=== PATIENT | female | born 1955 | race Caucasian/White ===

== ENCOUNTER 2024-03-16 08:43 | Inpatient (IN) | payer MEDICARE ==
[2024-03-16] MEDS: MIDAZOLAM 1 MG/ML 5 ML VIAL IV STA (08:47)
[2024-03-16] MEDS: SODIUM CHLORIDE 0.9% 500 ML 500 ML IV STA (08:48)
[2024-03-16] MEDS: SUCCINYLCHOLINE CHLORIDE 200 MG/10 ML VIAL IV STA (08:48)
[2024-03-16] MEDS ORDERED: RX INFO: IV CONTRAST WAS GIVEN 1 EACH MISC MISCELLANE PRN (09:07)
--- NOTE | 2024-03-16 09:12 | XR ---
EXAMINATION TYPE: XR chest 1V DATE OF EXAM: 03/16/2024 COMPARISON: NONE HISTORY: Shortness of breath FINDINGS: Noted is pulmonary venous congestion with scattered infiltrates. There is also cardiomegaly . Endotracheal tube is 3.5 cm from the dejon. IMPRESSION: Findings felt to reflect congestive failure. Infiltrates of other etiology are not excluded. Clini polo correlation and progress studies are recommended. [facility], , 03/16/2024 9:10 AM
--- NOTE | 2024-03-16 09:17 | ED ---
General Adult HPI - General Chief complaint: Cardiac Arrest/CPR Stated complaint: unresponsive Time Seen by Provider: 03/16/24 08:43 Source: patient, EMS, RN notes reviewed, old records reviewed Mode of arrival: EMS Limitations: physical limitation - History of Present Illness Initial comments: This is a 68-year-old female who presents to the emergency department via EMS. Patient's daughter heard a bang in the room she walked into the room and the pa tient was unresponsive and had no pulse and was not breathing so she started CPR and called 911. When EMS arrived the patient was in V-fib the patient was shocked 1 time and CPR was continued she was in PEA at that time they did give 1 epi intubated the patient and then the patient's pulse returned. Patient continued to have a pulse and route and had fairly normal blood pressure and route and was oxygenating 100% ET tube got removed accidentally and they put the patient on nonrebreather and she remained at 100% and route. No other data is available this time patient has never been to this hospital before patient arrives unresponsive - Related Data Home Medications Medication Instructions Recorded Confirmed Apixaban [Eliquis] 5 mg PO BID 03/16/24 03/16/24 Sotalol [Betapace] 80 mg PO BID 03/16/24 03/16/24 lisinopriL [Zestril] 5 mg PO DAILY 03/16/24 03/16/24 Allergies Allergy/AdvReac Type Severity Reaction Status Date / Time No Known Allergies Allergy Unverified 03/16/24 09:39 Review of Systems ROS Statement: Those systems with pertinent positive or pertinent negative responses have been documented in the HPI. ROS Other: All systems not noted in ROS Statement are negative. General Exam - General Exam Comments Initial Comments: GENERAL: Patient is well-developed and well-nourished. ENT: Neck is soft and supple. No significant lymphadenopathy is noted. Oropharynx is clear. Moist mucous membranes. EYES: The sclera were anicteric and conjunctiva were pink and moist. Extraocular movements were intact and pupils were equal round and reactive to light. Eye lids were unremarkable. PULMONARY: Unlabored respirations. Good breath sounds bilaterally. No audible rales rhonchi or wheezing was noted. CARDIOVASCULAR: Patient was tachycardic at about 100 beats a minute femoral pulses are equal bilaterally ABDOMEN: Soft and nontender with normal bowel sounds. SKIN: Patient has intertrigo under her breasts NEUROLOGIC: Patient is unresponsive MUSCULOSKELETAL: Unable to assess LYMPHATICS: No significant lymphadenopathy is noted PSYCHIATRIC: Unable to assess Limitations: physical limitation Course Vital Signs 03/16/24 03/16/24 03/16/24 08:47 08:55 09:29 Temperature 97.6 F Pulse Rate 100 104 H Respiratory 24 18 Rate Blood Pressure 183/109 195/134 O2 Sat by Pulse 97 100 Oximetry Fraction of 100 Inspired Oxygen (FIO2) 03/16/24 03/16/24 03/16/24 10:05 10:12 10:22 Temperature Pulse Rate 64 64 73 Respiratory 17 15 18 Rate Blood Pressure 64/42 75/49 142/90 O2 Sat by Pulse 99 97 99 Oximetry Fraction of Inspired Oxygen (FIO2) 03/16/24 10:32 Temperature Pulse Rate 36 L Respiratory Rate Blood Pressure O2 Sat by Pulse Oximetry Fraction of Inspired Oxygen (FIO2) Procedures - Intubation Sedative: Versed Paralytic: Succinylcholine Laryngoscope: Mosher Size: 4 ET Tube Size: 7.5 ET Tube Uncuffed: No Tube Secured Location: teeth Tube Placement Confirmation: visualized tube passing through cords, equal breath sounds bilaterally, no breath sounds over epigastrium, confirmation by capnometry Patient Tolerated Procedure: well Intubation Complications: none Medical Decision Making - Medical Decision Making EKG is interpreted by myself. EKG shows a sinus rhythm at 92 bpm IA interval is 120 QRS is 126 QT interval 374 QTc is 424. Patient's EKG shows occasional PAC no ST segment elevation is noted Was pt. sent in by a medical professional or institution (, PA, INDUSTRIAL SALES MANAGER, urgent care, hospital, or residential...) When possible be specific @ -No Did you speak to anyone other than the patient for history (EMS, parent, family, police, friend...)? What history was obtained from this source @ -EMS gave all of the history until family arrived and then family Feltes and other details. Did you review nursing and triage notes (agree or disagree)? Why? @ -I reviewed and agree with nursing and triage notes Were old charts reviewed (outside hosp., previous admission, EMS record, old EKG, old radiological studies, urgent care reports/EKG's, residential records)? Report findings @ -No old charts were reviewed Differential Diagnosis? @ -Differential Chest Pain: Stable Angina, Unstable Angina, STEMI, NSTEMI Aortic Dissection, Pneumothorax, Musculoskeletal, Esophageal Spasm GERD, Cholecystitis, Pancreatitis, Zoster, this is not meant to be an all-inclusive list. EKG interpreted by me (3pts min.). @ -As above X-rays interpreted by me (1pt min.). @ -Chest x-ray shows some infiltrates CT interpreted by me (1pt min.). @ -CT scan showed posterior opacities and some fractured ribs bilaterally U/S interpreted by me (1pt. min.). @ -None done What testing was considered but not performed or refused? (CT, X-rays, U/S, labs)? Why? @ -None What meds were considered but not given or refused? Why? @ -None Did you discuss the management of the patient with other professionals (professionals i.e. , PA, INDUSTRIAL SALES MANAGER, lab, RT, psych nurse, adoption social worker, municipal engineer, teacher, armoured corps officer, medical case manager)? Give summary @ -I spoke with Dr. Rabago about the case he saw the patient and start a central line. Spoke with Dr. Pearson he saw the patient and took the patient to the catheterization lab. Was smoking cessation discussed for >3mins.? @ -No Was critical care preformed (if so, how long)? @ -35 minutes Were there social determinants of health that impacted care today? How? (Homelessness, low income, unemployed, alcoholism, drug addiction, transportation, low edu. Level, literacy, decrease access to med. care, fpc, rehab)? @ -No Was there de-escalation of care discussed even if they declined (Discuss DNR or withdrawal of care, Hospice)? DNR status @ -No What co-morbidities impacted this encounter? (DM, HTN, Smoking, COPD, CAD, Cancer, CVA, ARF, Chemo, Hep., AIDS, mental health diagnosis, sleep apnea, m orbid obesity)? @ -None Was patient admitted / discharged? Hospital course, mention meds given and r oute, prescriptions, significant lab abnormalities, going to OR and other pertinent info. @ -Patient came in unresponsive by intubated the patient I used Versed and succinylcholine. Patient was then seen by Dr. Rabago he started a central line and started the paper on propofol and gave the patient Nimbex. Patient then blood pressure started to get low so I gave the patient a fluid bolus and star emeka the patient on Levophed patient then was taken to the cardiac Outside Industrial Sales Representative. Patient did have a slightly elevated troponin and elevated white count. Undiagnosed new problem with uncertain prognosis? @ -No Drug Therapy requiring intensive monitoring for toxicity (Heparin, Nitro, Insulin, Cardizem)? @ -No Were any procedures done? @ -No Diagnosis/symptom? @ -Cardiac arrest Acute, or Chronic, or Acute on Chronic? @ -Acute Uncomplicated (without systemic symptoms) or Complicated (systemic symptoms)? @ -Complicated Side effects of treatment? @ -No Exacerbation, Progression, or Severe Exacerbation? @ -No Poses a threat to life or bodily function? How? (Chest pain, USA, ID, pneumonia, PE, COPD, DKA, ARF, appy, cholecystitis, CVA, Diverticulitis, Homicidal, Suicidal, threat to staff... and all critical care pts) @ -Yes this could be secondary to a heart attack and cause morbidity or Diagnosis/symptom? @ -Rib fractures Acute, or Chronic, or Acute on Chronic? @ -Acute Uncomplicated (without systemic symptoms) or Complicated (systemic symptoms)? @ -Complicated Side effects of treatment? @ -None Exacerbation, Progression, or Severe Exacerbation] @ -No Poses a threat to life or bodily function? @ -No - Lab Data Result diagrams: 03/18/24 04:45 03/18/24 04:45 Lab Results 03/16/24 03/16/24 03/16/24 Range/Units 09:08 09:08 09:08 WBC 18.3 H (3.8-10.6) k/uL RBC 4.43 (3.80-5.40) m/uL Hgb 13.7 (11.4-16.0) gm/dL Hct 42.3 (34.0-46.0) % MCV 95.4 (80.0-100.0) fL MCH 30.9 (25.0-35.0) pg MCHC 32.4 (31.0-37.0) g/dL RDW 13.4 (11.5-15.5) % Plt Count 426 (150-450) k/uL MPV 8.6 Neutrophils % 85 % Lymphocytes % 10 % Monocytes % 2 % Eosinophils % 1 % Basophils % 0 % Neutrophils # 15.6 H (1.3-7.7) k/uL Lymphocytes # 1.9 (1.0-4.8) k/uL Monocytes # 0.4 (0-1.0) k/uL Eosinophils # 0.2 (0-0.7) k/uL Basophils # 0.0 (0-0.2) k/uL PT 11.1 (10.0-12.5) sec INR 1.0 (<1.2) APTT 26.4 (22.0-30.0) sec Sodium 139 (137-145) mmol/L Potassium 5.1 (3.5-5.1) mmol/L Chloride 105 (98-107) mmol/L Carbon Dioxide 20 L (22-30) mmol/L Anion Gap 14 mmol/L BUN 16 (7-17) mg/dL Creatinine 0.86 (0.52-1.04) mg/dL Est GFR (CKD-EPI)AfAm 82 (>60 ml/min/1.73 sqM) Est GFR (CKD-EPI)NonAf 71 (>60 ml/min/1.73 sqM) Glucose 244 H (74-99) mg/dL POC Glucose (mg/dL) (70-110) mg/dL POC Glu Vp Clinical ID Calcium 8.7 (8.4-10.2) mg/dL Magnesium 1.8 (1.6-2.3) mg/dL Total Bilirubin 0.8 (0.2-1.3) mg/dL AST 94 H (14-36) U/L ALT 44 H (4-34) U/L Alkaline Phosphatase 88 (38-126) U/L Troponin I (0.000-0.034) ng/mL Total Protein 6.6 (6.3-8.2) g/dL Albumin 3.9 (3.5-5.0) g/dL 03/16/24 03/16/24 Range/Units 09:08 09:17 WBC (3.8-10.6) k/uL RBC (3.80-5.40) m/uL Hgb (11.4-16.0) gm/dL Hct (34.0-46.0) % MCV (80.0-100.0) fL MCH (25.0-35.0) pg MCHC (31.0-37.0) g/dL RDW (11.5-15.5) % Plt Count (150-450) k/uL MPV Neutrophils % % Lymphocytes % % Monocytes % % Eosinophils % % Basophils % % Neutrophils # (1.3-7.7) k/uL Lymphocytes # (1.0-4.8) k/uL Monocytes # (0-1.0) k/uL Eosinophils # (0-0.7) k/uL Basophils # (0-0.2) k/uL PT (10.0-12.5) sec INR (<1.2) APTT (22.0-30.0) sec Sodium (137-145) mmol/L Potassium (3.5-5.1) mmol/L Chloride (98-107) mmol/L Carbon Dioxide (22-30) mmol/L Anion Gap mmol/L BUN (7-17) mg/dL Creatinine (0.52-1.04) mg/dL Est GFR (CKD-EPI)AfAm (>60 ml/min/1.73 sqM) Est GFR (CKD-EPI)NonAf (>60 ml/min/1.73 sqM) Glucose (74-99) mg/dL POC Glucose (mg/dL) 234 H (70-110) mg/dL POC Glu Vp Clinical ID Altimore Maribell Calcium (8.4-10.2) mg/dL Magnesium (1.6-2.3) mg/dL Total Bilirubin (0.2-1.3) mg/dL AST (14-36) U/L ALT (4-34) U/L Alkaline Phosphatase (38-126) U/L Troponin I 0.079 H* (0.000-0.034) ng/mL Total Protein (6.3-8.2) g/dL Albumin (3.5-5.0) g/dL Critical Care Time Critical Care Time: Yes Total Critical Care Time: 35 Disposition Clinical Impression: Cardiac arrest, Rib fractures, Bradycardia Disposition: ADMITTED IP TO THIS [facility] Time of Disposition: 10:56
[2024-03-16 09:24] LABS: Basophils % (A) 0 %; Eosinophils # (A) 0.2 k/uL (0-0.7); Eosinophils % (A) 1 %; HCT 42.3 % (34.0-46.0); HGB 13.7 gm/dL (11.4-16.0); Lymphocytes # (A) 1.9 k/uL (1.0-4.8); Lymphocytes % (A) 10 %; MCH 30.9 pg (25.0-35.0); MCHC 32.4 g/dL (31.0-37.0); MCV 95.4 fL (80.0-100.0); Mean Platelet Volume 8.6; Monocytes # (A) 0.4 k/uL (0-1.0); Monocytes % (A) 2 %; Neutrophils # (A) 15.6 k/uL (1.3-7.7); Neutrophils % (A) 85 %; Platelet Count 426 k/uL (150-450); RBC 4.43 m/uL (3.80-5.40); RDW 13.4 % (11.5-15.5); WBC 18.3 k/uL (3.8-10.6)
[2024-03-16] MEDS: CISATRACURIUM 2 MG/ML 5 ML VIAL IV ONE (09:24)
[2024-03-16 09:34] LABS: Partial Thromboplastin Time 26.4 sec (22.0-30.0); Prothrombin Time 11.1 sec (10.0-12.5)
[2024-03-16 09:45] LABS: ALT 44 U/L (4-34); AST 94 U/L (14-36); African American GFR (CKD) 82 (>60 ml/min/1.73 sqM); Albumin 3.9 g/dL (3.5-5.0); Alkaline Phosphatase 88 U/L (38-126); Anion Gap 14 mmol/L; Blood Urea Nitrogen 16 mg/dL (7-17); Calcium 8.7 mg/dL (8.4-10.2); Carbon Dioxide 20 mmol/L (22-30); Chloride 105 mmol/L (98-107); Glucose 244 mg/dL (74-99); Magnesium 1.8 mg/dL (1.6-2.3); Non-African American GFR(CKD) 71 (>60 ml/min/1.73 sqM); Potassium 5.1 mmol/L (3.5-5.1); Sodium 139 mmol/L (137-145); Total Bilirubin 0.8 mg/dL (0.2-1.3); Total Protein 6.6 g/dL (6.3-8.2)
[2024-03-16] MEDS: NOREPINEPHRINE 4 MG in SODIUM CHLORIDE 0.9% 250 ML IV SCH (10:10)
[2024-03-16] MEDS ORDERED: ALPRAZolam 0.25 MG TAB PO PRN (10:16)
[2024-03-16] MEDS ORDERED: NITROGLYCERIN SL TABS 0.4 MG TAB SUBLINGUAL PRN (10:16)
[2024-03-16] MEDS ORDERED: ALPRAZolam 0.5 MG TAB PO PRN (10:16)
[2024-03-16] MEDS: ATORVASTATIN 80 MG TAB OG-TUBE STA (10:28)
[2024-03-16] MEDS: ASPIRIN 325 MG TAB OG-TUBE STA (10:28)
--- NOTE | 2024-03-16 10:30 | CT ---
EXAMINATION TYPE: CT brain cspine wo con DATE OF EXAM: 03/16/2024 COMPARISON: None HISTORY: Cardiac arrest and fall. CT DLP: 2047.[address] of the brain was performed. The ventricles, basal cisterns and sulci overlying the cerebral convexities demonstrate mild enlargem ent. There is no evidence for intracranial hemorrhage or sulcal effacement. There is decreased attenuatio n about the periventricular white matter and deep white matter of both cerebral hemispheres, compatib le with chronic small vessel ischemia. Suspect tiny colloid cyst. Also small lipoma at the interhemi spheric fissure. No mass effects are seen. If symptoms persist consider MRI. Osseous calvarium is intact. IMPRESSION: 1. Age related atrophic and chronic small vessel ischemic change without acute intracranial process seen at this time. CT Cervical Spine: Unenhanced CT of the cervical spine was performed with bone and soft tissue window settings submitted . Coronal and sagittal reconstruction is obtained. There is normal alignment and prevertebral soft tissues. No evidence for acute cervical fracture . Moderate Scattered degenerative disc disease and spondylosis. Biapical scarring. Endotracheal tube and NG tube are noted . IMPRESSION: 1. No evidence for acute fracture or subluxation of the cervical spine. [facility], , 03/16/2024 10:28 AM
--- NOTE | 2024-03-16 10:32 | CT ---
EXAMINATION TYPE: CT chest w con CT DLP: 2047.7 mGycm, Automated exposure control for dose reduction was used. DATE OF EXAM: 03/16/2024 9:57 AM COMPARISON: Chest radiograph from same day. CLINICAL INDICATION: Female, 68 years old with history of Cardiac arrest; PHH, Cardiac arrest and fal l TECHNIQUE: Multiple axial images were obtained through the chest. Sagittal and coronal reformats were created for review. MIP was performed on a separate workstation. Contrast used:100ml mL of Isovue 370 with IV Contrast (None if empty) Oral contrast used: (None if empty) FINDINGS: LUNGS/ PLEURA: Scattered airspace opacities predominantly in the posterior lungs. Intralobular septal thickening. No evidence for pleural effusion or pneumothorax. AIRWAY: Tracheostomy cannula to resolve the dejon. HEART: The mildly enlarged for size. Coronary artery atherosclerosis. MEDIASTINUM: No gross evidence of adenopathy. VASCULATURE: No aortic aneurysm. No central pulmonary embolus. MUSCULOSKELETAL: Acute fracture left rib 6, right rib 5. SOFT TISSUES/LYMPH NODES: Unremarkable. LOWER NECK: No significant findings. UPPER ABDOMEN: Nasogastric tube terminates in the gastric lumen. IMPRESSION: 1. Suspected sequela of cardiac arrest with posterior airspace opacities opacities posteriorly corre late for pneumonia versus aspiration. 2. Cardiomegaly with pulmonary edema correlate for congestive heart failure findings likely reactive secondary to cardiac arrest. 3. Bilateral rib fractures likely secondary to CPR. 4. No central pulmonary embolus. 5. [facility], , 03/16/2024 10:29 AM
[2024-03-16] MEDS: IV FLUID CONTINUATION 1,000 ML IV ONE (11:03)
[2024-03-16] MEDS: LIDOCAINE 1% INJ 10MG/ML (20 ML MDV) SQ ONE (11:10)
[2024-03-16] MEDS: IOPAMIDOL-370 100ML BTL INJ ONE (11:19)
--- NOTE | 2024-03-16 11:20 | P.CRDCN ---
History of Present Illness History of present illness: HISTORY OF PRESENT ILLNESS: This is a 68-year-old female with a past medical history significant for hypertension and paroxysmal atrial fibrillation. Patient follows with a armor officer at [facility]. We have been asked to see the patient in consultation for cardiac arrest. Patient's family is present. Patient's family states that they heard a thump in the other room and when they went to see what happened they noticed the patient was on the floor. She was unresponsive. 911 was called and CPR was started. The patient was apparently in V-fib when EMS arrived. She did receive defibrillation along with epinephrine. Patient examined at the bedside in the emergency room. Patient remains intubated on mechanical ventilation. She is sedated with propofol. Patient's family denies any known history of CAD. Patient's blood pressure at the time of examination is low with a systolic in the 70s. Her propofol has been paused and she has been started on Levophed. Patient's family gives additional history that the patient was recently on antibiotics for a dental infection. DIAGNOSTICS: - EKG reveals sinus mechanism with a heart rate of 92. - Chest xray findings felt to reflect congestive failure. Infiltrates or other etiology not excluded. - Laboratory data: WBC 18.3. Hemoglobin 13.7. Platelet count 426. Sodium 139. Potassium 5.1. BUN 16. Creatinine 0.86. Magnesium 1.8. AST 94. ALT 44. Troponin 0.079. - Current home cardiac medications include lisinopril 5 mg daily, sotalol 80 mg twice a day, Eliquis 5 mg twice a day REVIEW OF SYSTEMS: At the time of my exam: Able to obtain as patient is sedated on mechanical ventilation PHYSICAL EXAM: VITAL SIGNS: Reviewed. GENERAL: Well-developed in no acute distress. Sedated on mechanical ventilation. HEENT: Head is normocephalic. Pupils are equal, round. Sclerae anicteric. Mucous membranes of the mouth are moist. Neck supple. No JVD or thyromegaly LUNGS: Respirations even and unlabored. Lungs essentially clear to auscultation bilaterally. HEART: Regular rate and rhythm. S1 and S2 heard. ABDOMEN: Soft. Nondistended. Nontender. EXTREMITIES: Normal range of motion. No clubbing or cyanosis. Peripheral pulses intact. No lower extremity edema NEUROLOGIC: Sedated on mechanical ventilation ASSESSMENT: Ventricular fibrillation cardiac arrest, may be secondary to sotalol along with recent antibiotics for dental infection causing prolonged QTc leading to VF arrest, cannot rule out underlying CAD Prolonged QTc, measuring 470 on EKG performed in labor representative Hypotension, after initiation of IV propofol, requiring vasopressor support History of hypertension Paroxysmal atrial fibrillation, on Eliquis outpatient PLAN: Hold sotalol Recommend cardiac catheterization. Patient's family is at the bedside and agreeable. Hold Eliquis. May resume tonight after cardiac catheterization Obtain 2D echo to assess cardiac structure and function Further recommendations pending patient course Nurse practitioner note has been reviewed by physician. Signing provider agrees with the documented findings, assessment, and plan of care documented by BASEBALL HAND SEWER as a scribe. Medications and Allergies Home Medications Medication Instructions Recorded Confirmed Type Apixaban [Eliquis] 5 mg PO BID 03/16/24 03/16/24 History Sotalol [Betapace] 80 mg PO BID 03/16/24 03/16/24 History lisinopriL [Zestril] 5 mg PO DAILY 03/16/24 03/16/24 History Allergies Allergy/AdvReac Type Severity Reaction Status Date / Time No Known Allergies Allergy Unverified 03/16/24 09:39 Physical Exam Vitals: Vital Signs Temp Pulse Resp BP Pulse Ox FiO2 03/16/24 10:22 73 18 142/90 99 03/16/24 10:12 64 15 75/49 97 03/16/24 10:05 64 17 64/42 99 03/16/24 09:29 104 H 18 195/134 100 03/16/24 09:02 100 03/16/24 08:55 100 03/16/24 08:47 97.6 F 100 24 183/109 97 Intake and Output 03/15/24 03/16/24 03/16/24 22:59 06:59 14:59 Intake Total 23.076 Output Total 20 Balance 3.076 Intake: Intake, IV Titration 23.076 Amount propofoL 1,000 mg In 23.076 Empty Bag 1 bag @ 15 MCG/ KG/MIN 10.206 mls/hr IV . Q9H48M [facility] Rx#:[id number] Output: Gastric Drainage 20 Other: Weight 113.398 kg Results 03/16/24 09:08 03/16/24 09:08 Cardiac Enzymes 03/16/24 03/16/24 Range/Units 09:08 09:08 AST 94 H (14-36) U/L Troponin I 0.079 H* (0.000-0.034) ng/mL Coagulation 03/16/24 Range/Units 09:08 PT 11.1 (10.0-12.5) sec APTT 26.4 (22.0-30.0) sec CBC 03/16/24 Range/Units 09:08 WBC 18.3 H (3.8-10.6) k/uL RBC 4.43 (3.80-5.40) m/uL Hgb 13.7 (11.4-16.0) gm/dL Hct 42.3 (34.0-46.0) % Plt Count 426 (150-450) k/uL Comprehensive Metabolic Panel 03/16/24 Range/Units 09:08 Sodium 139 (137-145) mmol/L Potassium 5.1 (3.5-5.1) mmol/L Chloride 105 (98-107) mmol/L Carbon Dioxide 20 L (22-30) mmol/L BUN 16 (7-17) mg/dL Creatinine 0.86 (0.52-1.04) mg/dL Glucose 244 H (74-99) mg/dL Calcium 8.7 (8.4-10.2) mg/dL AST 94 H (14-36) U/L ALT 44 H (4-34) U/L Alkaline Phosphatase 88 (38-126) U/L Total Protein 6.6 (6.3-8.2) g/dL Albumin 3.9 (3.5-5.0) g/dL Current Medications Generic Name Dose Route Start Last Admin Trade Name Freq PRN Reason Stop Dose Admin Alprazolam 0.25 mg 03/16/24 10:16 Alprazolam 0.25 Mg Tab PO Q6HR PRN Mild Anxiety Alprazolam 0.5 mg 03/16/24 10:16 Alprazolam 0.5 Mg Tab PO Q6HR PRN Moderate Anxiety Propofol 1,000 mg/ IV Solution 100 mls @ 10.206 mls/hr 03/16/24 09:15 03/16/24 10:23 IV 15 mcg/kg/min .Q9H48M DAVID 10.206 mls/hr Titration Protocol 15 MCG/KG/MIN Norepinephrine Bitartrate 4 mg 254 mls @ 12.961 mls/hr 03/16/24 10:30 03/16/24 10:10 / Sodium Chloride IV 0.03 mcg/kg/min .[id number] DAVID 12.961 mls/hr Administration Protocol 0.03 MCG/KG/MIN Heparin Sodium (Porcine) 10, 1,001 mls @ 999 mls/hr 03/17/24 07:00 000 unit/ Sodium Chloride IRRIGATION 03/17/24 23:00 ONCE PRN INTRA-OP Heparin Sodium (Porcine) 2,500 250.5 mls @ 250 mls/hr 03/17/24 07:00 unit/ Sodium Chloride IRRIGATION 03/17/24 23:00 ONCE PRN INTRA-OP Sodium Chloride 1,000 ml/ IV 1,000 mls @ 113.398 mls/hr 03/16/24 10:30 Solution IV .Q8H50M DAVID 1 ML/KG/HR Miscellaneous Information 1 each 03/16/24 09:07 Rx Info: Iv Contrast Was Given 1 Each Misc MISCELLANE 03/18/24 09:08 DAILY PRN Per Protocol Nitroglycerin 0.4 mg 03/16/24 10:16 Nitroglycerin Sl Tabs 0.4 Mg Tab SUBLINGUAL Q5M PRN Chest Pain Intake and Output 03/15/24 03/16/24 03/16/24 22:59 06:59 14:59 Intake Total 23.076 Output Total 20 Balance 3.076 Intake: Intake, IV Titration 23.076 Amount propofoL 1,000 mg In 23.076 Empty Bag 1 bag @ 15 MCG/ KG/MIN 10.206 mls/hr IV . Q9H48M [facility] Rx#:[id number] Output: Gastric Drainage 20 Other: Weight 113.398 kg Patient Weight 03/17/24 06:59 Weight 113.398 kg 03/16/24 09:08 03/16/24 09:08
[2024-03-16] MEDS: SODIUM CHLORIDE 0.9% 1,000 ML in EMPTY BAG 1 BAG IV SCH (11:50)
[2024-03-16] MEDS: ATROPINE SULFATE 0.1 MG/ML 10ML SYRINGE IV STA (13:00)
[2024-03-16] MEDS ORDERED: DEXTROSE 50% SYRINGE 50 ML IVP PRN ×2 (13:19)
[2024-03-16] MEDS: DOPamine DRIP 800 MG in DEXTROSE/WATER 1 250ML.BAG IV SCH (13:19)
--- NOTE | 2024-03-16 13:27 | P.HPIM ---
History of Present Illness H&P Date: 03/16/24 Patient is a 68-year-old female with history of hypertension, atrial fibrillation on Eliquis had an outside [id number] cardiac arrest. Per report, patient's daughter heard a loud bang in the room, quickly went to check on her mother, and found her unresponsive and pulseless. She started CPR and called 911. Upon arrival of EMS, patient was found to be in V-fib, shocked 1 time, CPR continued, did receive 1 of epi and intubated before ROSC. ET tube accidentally removed en route to the hospital, patient was reintubated. Patient's temperature was 97.6, pulse 100, respiratory rate 24, blood pressure 183/109 saturating at 97% with mechanical ventilation. Chest x-ray independentl y interpreted, showed bilateral interstitial opacities. Chest CTA did not show any PE, bilateral rib fractures secondary to CPR, possible aspiration versus pneumonia, pulmonary edema. Head and neck CT did not show any acute fractures, otherwise no acute process. Patient was started on EKG showed sinus arrhythmia, fascicular block, no significant ST or T wave changes. Patient was evaluated by cardiology and pulmonology. She was taken directly to cardiac cath, and then transferred to medical ICU. Pertinent positives and negatives as discussed in HPI, a complete review of systems was performed and all other systems are negative. Patient seen and examined at bedside. Vital signs reviewed General: nontoxic, no distress, appears at stated age Derm: warm, dry, intertrigo under bilateral breast and under abdominal fold and groin Head: atraumatic, normocephalic, symmetric Eyes: EOMI, no lid lag, anicteric sclera, pupils equal round reactive to light ENT: Nose and ears atraumatic Neck: No thyromegaly, supple Mouth: no lip lesion, mucus membranes moist Cardiovascular: S1S2 reg, no murmur, no edema Lungs: clear to auscultation bilateral, no rhonchi, no rales, no wheeze, no accessory muscle use Abdominal: soft, nontender to palpation, no guarding, no appreciable organomegaly Ext: no gross muscle atrophy, muscle strength muscle strength 5 out of 5 in all 4 extremities, no contractures Neuro: CN II-XII grossly intact Psych: Alert, oriented, appropriate affect Assessment/Plan: Active: [id number] V-fib cardiac arrest Acute encephalopathy, likely metabolic Elevated troponin Leukocytosis Shock, likely cardiogenic versus medication induced History of atrial fibrillation Suspected aspiration pneumonia -Patient is currently mechanically ventilated -Pulmonology consulted, pending recommendations -Continue to wean pressors and sedation -Reportedly, left heart cath showed no significant coronary artery disease -Possible sotalol induced arrhythmia -Leukocytosis, likely reactive from cardiac arrest -Continue IV Zosyn 3.375 g every 8 hours -Sputum cultures, procalcitonin pending -Patient on Eliquis at home, consider starting patient on heparin drip Hyperglycemia, likely reactive -A1c ordered -Sliding scale insulin, every 4 hours as needed, monitor for hypoglycemia Intertrigo -Nystatin powder The patient is admitted with an anticipated greater than 2 midnight stay as inpatient status for evaluation of cardiac arrest. Surrogate decision-maker: Stefan CODE STATUS: Full code DVT prophylaxis: heparin Anticipated discharge date: Pending clinical course Anticipated discharge place: Pending clinical course A total of 55 minutes was spent on the care of this complex patient more than 50% of the time was spent in counseling and care coordination. Medications and Allergies Home Medications Medication Instructions Recorded Confirmed Type Apixaban [Eliquis] 5 mg PO BID 03/16/24 03/16/24 History Sotalol [Betapace] 80 mg PO BID 03/16/24 03/16/24 History lisinopriL [Zestril] 5 mg PO DAILY 03/16/24 03/16/24 History Allergies Allergy/AdvReac Type Severity Reaction Status Date / Time No Known Allergies Allergy Unverified 03/16/24 09:39 Physical Exam Vitals: Vital Signs Temp Pulse Resp BP Pulse Ox FiO2 03/16/24 13:15 62 18 152/92 100 03/16/24 13:00 74 18 100 03/16/24 12:45 32 L 18 100 03/16/24 12:30 61 18 131/68 99 03/16/24 12:15 60 18 122/59 100 03/16/24 12:00 96.8 F L 60 18 123/80 100 100 03/16/24 10:32 36 L 03/16/24 10:22 73 18 142/90 99 03/16/24 10:12 64 15 75/49 97 03/16/24 10:05 64 17 64/42 99 03/16/24 09:29 104 H 18 195/134 100 03/16/24 09:02 100 03/16/24 08:55 100 03/16/24 08:47 97.6 F 100 24 183/109 97 Intake and Output 03/15/24 03/16/24 03/16/24 22:59 06:59 14:59 Intake Total 251.626 Output Total 320 Balance -68.374 Intake: Intake, IV Titration 251.626 Amount Norepinephrine 4 mg In 10.55 Sodium Chloride 0.9% 250 ml @ 0.03 MCG/KG/MIN 12. 961 mls/hr IV .[id number] DAVID Rx#:[id number] Sodium Chloride 0.9% 1, 185 000 ml In Empty Bag 1 bag @ 1 ML/KG/HR 113.398 mls /hr IV .[id number] DAVID Rx#: [id number] propofoL 1,000 mg In 56.076 Empty Bag 1 bag @ 15 MCG/ KG/MIN 10.206 mls/hr IV . Q9H48M DAVID Rx#:[id number] Output: Gastric Drainage 20 Urine 300 Other: Weight 113.398 kg ABP, PAP, CO, CI - Last 8 Hours Arterial Blood Pressure 156/86 Arterial Blood Pressure 180/114 Results CBC & Chem 7: 03/16/24 09:08 03/16/24 09:08 Labs: Abnormal Lab Results - Last 24 Hours (Table) 03/16/24 03/16/24 03/16/24 Range/Units 09:08 09:08 09:08 WBC 18.3 H (3.8-10.6) k/uL Neutrophils # 15.6 H (1.3-7.7) k/uL Carbon Dioxide 20 L (22-30) mmol/L Glucose 244 H (74-99) mg/dL AST 94 H (14-36) U/L ALT 44 H (4-34) U/L Troponin I 0.079 H* (0.000-0.034) ng/mL
[2024-03-16] MEDS ORDERED: INSULIN ASPART (NovoLOG) 100 UNIT/ML VIAL SQ SCH (13:30)
[2024-03-16 13:45] LABS: ABG Base Excess -0.2 mmol/L; ABG HCO3 24 mmol/L (21-25); ABG PCO2 36 mmHg (35-45); ABG PH 7.43 (7.35-7.45); ABG TCO2 25 mmol/L (19-24); Allen Test Performed? Yes
--- NOTE | 2024-03-16 13:55 | OP ---
OPERATIVE REPORT DATE OF SERVICE : PROCEDURE PERFORMED: Placement of a right femoral triple-lumen catheter. PREOPERATIVE DIAGNOSIS: Cardiac arrest, the patient was seen in the emergency room, and a central line was felt to be necessary and this was done on an emergency basis. POSTOPERATIVE DIAGNOSIS: Cardiac arrest, the patient was seen in the emergency room, and a central line was felt to be necessary and this was done on an emergency basis. ANESTHESIA USED: None deployed. DESCRIPTION OF PROCEDURE: The right groin was prepared in a sterile fashion. Drapes were applied. The area of the right femoral vein was easily cannulated, a guidewire was placed, a triple-lumen catheter was inserted over the guidewire, and the guidewire was removed. Good blood flow in the 3 different ports of the triple-lumen catheter, no complications, the line was secured using 3.0 silk sutures. MMAFUA / NEPTALIN: [id number] /
--- NOTE | 2024-03-16 13:57 | P.CARDCATH ---
Description of Procedure: PROCEDURES PERFORMED: Left heart catheterization, bilateral coronary angiography, ultrasound guided arterial access INDICATION: V. fib cardiac arrest CONSENT:I have discussed the risks, benefits and alternative therapies for the above-mentioned procedure and for both sedation/analgesia as well as necessary blood product administration, if indicated, as they pertain to this patient. The patient has indicated understanding and acceptance of the risks and procedures discussed. PROCEDURE: After the risks, benefits and alternatives of the above mentioned procedure explained in detail with the patient, informed consent was obtained. Patient was taken to the catheterization lab and prepped and draped in usual fashion. Ultrasound guidance was used to assess for arterial access. 1% lidocaine was used to anesthetize the right radial artery. A 6-Maltese sheath was placed in the right radial artery using modified Seldinger technique and ultrasound guidance. Left coronary angiography was performed with a 5-Maltese JL 3.5 catheter and right coronary angiography was performed with a 5-Maltese FR5 catheter in various views. A 5-Maltese FR5 catheter was inserted into the left ventricle and pressure measurements were obtained. The right radial sheath was removed and a TR band was placed with hemostasis achieved. The patient t olerated the procedure well. Patient was transported back to the post catheterization holding area in stable condition. Conscious Sedation: Patient was monitored under the direct supervision of myself for conscious sedation using Versed and fentanyl for a total duration of [] minutes HEMODYNAMICS: aorta: 134/98 on norepinephrine LV: 138/15, LVEDP 28 SELECTIVE CORONARY ARTERIOGRAPHY: LEFT MAIN: The left main is a large caliber vessel which bifurcates into the LAD and circumflex. There is no significant stenosis. LEFT ANTERIOR DESCENDING CORONARY ARTERY: LAD is a large caliber vessel which wraps around to the apex. There is are mild luminal irregularities of the LAD 10%. LEFT CIRCUMFLEX CORONARY ARTERY: Left circumflex is a moderate caliber vessel without significant stenosis. RIGHT CORONARY ARTERY: The right coronary artery is a large caliber vessel which gives off a PDA and PLV branch and is the dominant vessel. There are mild luminal irregularities of the RCA 10% FINAL IMPRESSION: 1. Relatively normal coronary arteries with only mild luminal irregularities of the LAD and RCA 2. Elevated left sided filling pressures PLAN: 1. Aggressive risk factor modification per most recent ACC/AHA guidelines. 2. Follow-up in the office in 1-2 weeks.
--- NOTE | 2024-03-16 13:58 | P.CNPUL ---
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 Patient was brought into the ER by EMS, apparently the family heard a thump in the other room where they went to see what happened they noticed that the patient was on the floor. Patient was unresponsive, CPR was started by family members, 911 was called, upon arrival of EMS, patient was in V-fib, patient received further CPR, defibrillation, and she also received epinephrine by EMS. Brought into the emergency room intubated, patient was seen initially in the ER by myself, and I went ahead and placed a right femoral triple-lumen catheter for venous access/central access. Patient was extremely agitated, restless, unresponsive to any stimuli, quite obtunded, and her blood pressure was initially in the 70s systolic. Patient received Nimbex initially and then she her propofol was titrated, she is presently on propofol. Patient was placed on assist-control mode of mechanical ventilation, ABG now is pending. Patient was seen by cardiology and underwent cardiac catheterization and she was found to have normal coronaries. No significant findings according to the cardiology report. Patient was brought back to ICU after cardiac catheterization, and I saw her again in the ICU left radial arterial line was placed. Patient was noted to have intermittent episodes of bradycardia with hypotension, received 1 dose of atropine, 0.5 mg, and she responded well to atropine. With increase in the heart rate to the 80s, and blood pressure was noted to be 160 systolic with increased heart rate hence norepinephrine was being titrated and I recommended stopping norepinephrine at that point. Considered placing the patient on dopamine, but did not require to do so. According to the cardiology note, it was felt that her cardiac arrest may have been secondary to sotalol along with the recent antibiotic taken for dental infection causing prolonged QTc interval leading to ventricular fibrillation arrest. Review of Systems ROS unobtainable: due to endotracheal tube Medications and Allergies Home Medications Medication Instructions Recorded Confirmed Type Apixaban [Eliquis] 5 mg PO BID 03/16/24 03/16/24 History Sotalol [Betapace] 80 mg PO BID 03/16/24 03/16/24 History lisinopriL [Zestril] 5 mg PO DAILY 03/16/24 03/16/24 History Allergies Allergy/AdvReac Type Severity Reaction Status Date / Time No Known Allergies Allergy Unverified 03/16/24 09:39 Physical Exam Vitals: Vital Signs Temp Pulse Resp BP Pulse Ox FiO2 03/16/24 13:33 100 03/16/24 13:15 62 18 152/92 100 03/16/24 13:00 74 18 100 03/16/24 12:45 32 L 18 100 03/16/24 12:30 61 18 131/68 99 03/16/24 12:15 60 18 122/59 100 03/16/24 12:00 96.8 F L 60 18 123/80 100 100 03/16/24 10:32 36 L 03/16/24 10:22 73 18 142/90 99 03/16/24 10:12 64 15 75/49 97 03/16/24 10:05 64 17 64/42 99 03/16/24 09:29 104 H 18 195/134 100 03/16/24 09:02 100 03/16/24 08:55 100 03/16/24 08:47 97.6 F 100 24 183/109 97 Intake and Output 03/15/24 03/16/24 03/16/24 22:59 06:59 14:59 Intake Total 251.626 Output Total 320 Balance -68.374 Intake: Intake, IV Titration 251.626 Amount Norepinephrine 4 mg In 10.55 Sodium Chloride 0.9% 250 ml @ 0.03 MCG/KG/MIN 12. 961 mls/hr IV .[id number] DAVID Rx#:[id number] Sodium Chloride 0.9% 1, 185 000 ml In Empty Bag 1 bag @ 1 ML/KG/HR 113.398 mls /hr IV .Q8H50M DAVID Rx#: [id number] propofoL 1,000 mg In 56.076 Empty Bag 1 bag @ 15 MCG/ KG/MIN 10.206 mls/hr IV . Q9H48M DAVID Rx#:[id number] Output: Gastric Drainage 20 Urine 300 Other: Weight 113.398 kg ABP, PAP, CO, CI - Last 8 Hours Arterial Blood Pressure 156/86 Arterial Blood Pressure 180/114 GENERAL: Revealed a 68-year-old female, obese, sedated on propofol, not in distress. However when she was seen in the ER earlier, she was extremely restless and agitated and was not synchronous with the ventilator upon her initial arrival to the ER. HEENT: Head is normocephalic. Pupils are pinpoint. Sclerae anicteric. Mucous membranes of the mouth are moist. Neck supple. No JVD or thyromegaly LUNGS: Crackles at the bases no rhonchi no wheezes. HEART: Intermittent bradycardia noted. Distant S1-S2, no S3 gallop. ABDOMEN obese,Soft. Nondistended. Nontender. Positive bowel sounds. EXTREMITIES: No deformities and no limitation range of motion, no clubbing edema or cyanosis. Distal pulses are diminished bilaterally. NEUROLOGIC: Could not assess, patient is sedated and mechanically ventilated Psychiatric: Could not assess. Results - Laboratory Findings CBC and BMP: 03/16/24 09:08 03/16/24 09:08 PT/INR, D-dimer PT 11.1 sec (10.0-12.5) 03/16/24 09:08 INR 1.0 (<1.2) 03/16/24 09:08 Abnormal lab findings: Abnormal Labs 03/16/24 03/16/24 03/16/24 09:08 09:08 09:08 WBC 18.3 H Neutrophils # 15.6 H Carbon Dioxide 20 L Glucose 244 H AST 94 H ALT 44 H Troponin I 0.079 H* - Diagnostic Findings CT scan - chest: image reviewed (Her CT of the chest and chest x-ray showed evidence of bilateral airspace disease, differential diagnosis includes aspiration pneumonia and/or pulmonary edema, I believe based on the clinical presentation patient could have either 1 or possibly both) Assessment and Plan Assessment: Impression: Acute ventricular fibrillation cardiac arrest requiring CPR, exact downtime is unknown. Prolonged QTc interval, may be related to a combination of medications including sotalol and antibiotics. Hypotension secondary to cardiac arrest and secondary to arrhythmia requiring vasopressor support patient was on norepinephrine upon her initial arrival to the ICU at 0.1 mcg/kg/min History of benign essential hypertension History of paroxysmal atrial fibrillation normally on Eliquis Possible aspiration pneumonia Recommendation: Continue ventilatory support, patient is on assist-control mode of mechanical ventilation, awaiting ABG to adjust ventilator settings Continue antibiotics for presumptive aspiration pneumonia patient will be placed on Zosyn Resume Eliquis Continue hemodynamic support Nutritional support to be addressed in the next 24 hours may even addressed later today. Will continue sedation today, and will start sedation holidays and assess mental status in the next 24 hours Continue to monitor in the ICU GI and DVT prophylaxis Antibiotics as ordered Close monitoring of her cardiac arrhythmia, will hold on using dopamine at this point. Will continue to follow. Patient is critically ill, critical care time is over 55 minutes not including time on procedures. Time with Patient: Greater than 30
--- NOTE | 2024-03-16 14:01 | OP ---
OPERATIVE REPORT DATE OF SERVICE : PROCEDURE PERFORMED: Placement of a left radial arterial line. PREOPERATIVE DIAGNOSES: Hypotension, cardiac arrest, the patient is on pressors and she is having episodes of profound bradycardia with hypotension. POSTOPERATIVE DIAGNOSES: Hypotension, cardiac arrest, the patient is on pressors and she is having episodes of profound bradycardia with hypotension. ANESTHESIA USED: None deployed. DESCRIPTION OF PROCEDURE: The left wrist was prepared in a sterile fashion. Drapes were applied. The left radial artery was palpated, easily cannulated, and a guidewire was placed. A Cook's catheter was inserted over the guidewire, and the guidewire was removed. Good blood flow, good waveform noted. No complications. Line was secured using 3.0 silk sutures. MMODL / IJN: [id number] /
--- NOTE | 2024-03-16 14:40 | P.PN ---
Progress Note - Text patient with relatively normal left heart catheterization without significant obstructive disease. V. fib arrest likely related to prolonged QT exacerbated by his sotalol and possibly recent antibiotics. Hold sotalol. Heart rate decreasing however down in the 30s and use dopamine drip as needed. If becomes more bradycardic patient may require temporary or even permanent pacemaker.
[2024-03-16] MEDS: NYSTATIN 100,000 UNIT/GM POWD 15 GM TOPICAL SCH (16:23)
[2024-03-16] MEDS: PIPERACILLIN-TAZOBACTAM 3.375 GM in SODIUM CHLORIDE 0.9% 100 ML IVPB SCH (16:23)
[2024-03-16 16:26] LABS: Glucose,Whole Blood 118 mg/dL (70-110)
[2024-03-16] MEDS: INSULIN ASPART (NovoLOG) 100 UNIT/ML VIAL SQ SCH (16:26)
--- NOTE | 2024-03-16 17:02 | CA ---
Transthoracic Echo Report Name: Theresa Reeves Age: 68 Gender: F : 1955 Exam Date: 03/16/2024 14:25 Exam Location: [facility] Ht (in): 68 Wt (lb): 250 Ordering Physician: Gabriela Bennett Attending/Referring Phys: [id number], Sabrina Receiving Clerk Yumi Marlow RDCS Procedure CPT: Indications: Cardiac arrest, LV function Cardiac Hx: Technical Quality: Technically difficult study Contrast 1: Definity Total Dose (mL): 2 Contrast 2: Total Dose (mL): MEASUREMENTS (Male / Female) Normal Values 2D ECHO LV Diastolic Diameter PLAX 4.8 cm 4.2 - 5.9 / 3.9 - 5.3 cm LV Systolic Diameter PLAX 3.4 cm IVS Diastolic Thickness 1.2 cm 0.6 - 1.0 / 0.6 - 0.9 cm LVPW Diastolic Thickness 1.2 cm 0.6 - 1.0 / 0.6 - 0.9 cm LV Relative Wall Thickness 0.5 LVOT Diameter 1.8 cm LV Diastolic Volume MOD BP 126.7 cm??? 67 - 155 / 56 - 104 cm??? LV Systolic Volume MOD BP 57.4 cm??? 22 - 58 / 19 - 49 cm??? LV Ejection Fraction MOD BP 54.7 % >= 55 % LV Cardiac Index MOD BP 2735.9 cm???/min???m??? LV Diastolic Volume MOD 4C 124.9 cm??? LV Systolic Volume MOD 4C 60.3 cm??? LV Ejection Fraction MOD 4C 51.8 % LV Cardiac Index MOD 4C 2551.7 cm???/min???m??? LV Diastolic Length 4C 7.9 cm LV Systolic Length 4C 6.7 cm LV Diastolic Volume MOD 2C 124.5 cm??? LV Systolic Volume MOD 2C 53.0 cm??? LV Ejection Fraction MOD 2C 57.4 % LV Cardiac Index MOD 2C 2820.2 cm???/min???m??? LV Diastolic Length 2C 8.2 cm LV Systolic Length 2C 6.9 cm LA Volume 84.2 cm??? 18 - 58 / 22 - 52 cm??? LA Volume Index 35.3 cm???/m??? 16 - 28 cm???/m??? Ascending Aorta Diameter 3.6 cm DOPPLER AV Peak Velocity 194.6 cm/s AV Peak Gradient 15.1 mmHg AV Mean Velocity 140.7 cm/s AV Mean Gradient 8.5 mmHg AV Velocity Time Integral 34.4 cm LVOT Peak Velocity 115.1 cm/s LVOT Peak Gradient 5.3 mmHg LVOT Velocity Time Integral 21.1 cm LVOT Stroke Volume 52.4 cm??? LVOT Stroke Volume Index 23.3 ml/m??? LVOT Cardiac Index 2069.8 cm???/min???m??? AV Area Cont Eq vti 1.5 cm??? AV Area Cont Eq pk 1.5 cm??? MV Area PHT 5.7 cm??? Mitral E Point Velocity 64.8 cm/s Mitral A Point Velocity 70.3 cm/s Mitral E to A Ratio 0.9 MV Deceleration Time 133.9 ms TR Peak Velocity 257.5 cm/s TR Peak Gradient 26.5 mmHg Right Atrial Pressure 20.0 mmHg Pulmonary Artery Systolic Pressu 46.5 mmHg Right Ventricular Systolic Press 46.5 mmHg PV Peak Velocity 99.9 cm/s PV Peak Gradient 4.0 mmHg FINDINGS Left Ventricle Left ventricular ejection fraction is estimated at 50-55 %. Mildly increased septal wall thickness. Mildly increased posterior wall thickness. Moderately increased left ventricular diastolic volume. Mildly increased left ventricular systolic volume. Mildly decreased left ventricular ejection fraction with regional variability. Right Ventricle Right ventricular dilatation with normal function. Mild pulmonary hypertension. Right Atrium Normal right atrial size. Left Atrium Moderately increased left atrial volume. Mildly increased left atrial area. Mitral Valve Structurally normal mitral valve. No evidence for mitral valve prolapse. No mitral stenosis. Trace mitral regurgitation. Aortic Valve Trileaflet aortic valve. No aortic valve stenosis or regurgitation. Tricuspid Valve Structurally normal tricuspid valve. No tricuspid stenosis. Mild tricuspid regurgitation. Pulmonic Valve Pulmonic valve not well visualized. No pulmonic stenosis. No pulmonic regurgitation. Pericardium No pericardial effusion. Aorta Normal size aortic root and proximal ascending aorta. CONCLUSIONS Normal LV systolic function Mild pulmonary hypertension Previewed by: Dr. Buck Flores MD (Electronically Signed) Final Date: 16 March 2024 17:02
[2024-03-16 19:58] LABS: Glucose,Whole Blood 132 mg/dL (70-110)
[2024-03-16] MEDS: MORPHINE SULFATE 4 MG/ML SYRINGE IVP PRN (23:06)
[2024-03-16 23:40] LABS: Glucose,Whole Blood 125 mg/dL (70-110)
[2024-03-17 00:29] LABS: ABG PO2 >420 mmHg (83-108)
[2024-03-17] MEDS: SODIUM CHLORIDE 0.9% 1,000 ML IV ONE (01:46)
[2024-03-17 04:35] LABS: Glucose,Whole Blood 133 mg/dL (70-110)
[2024-03-17] MEDS ORDERED: ACETAMINOPHEN IV (For NPO) 650 MG in EMPTY BAG 1 BAG IVPB PRN (04:48)
[2024-03-17 04:55] LABS: ALT 34 U/L (4-34); AST 40 U/L (14-36); African American GFR (CKD) >90 (>60 ml/min/1.73 sqM); Albumin 3.2 g/dL (3.5-5.0); Alkaline Phosphatase 90 U/L (38-126); Anion Gap 3 mmol/L; Blood Urea Nitrogen 17 mg/dL (7-17); Calcium 8.5 mg/dL (8.4-10.2); Carbon Dioxide 25 mmol/L (22-30); Chloride 111 mmol/L (98-107); Glucose 127 mg/dL (74-99); Magnesium 1.8 mg/dL (1.6-2.3); Non-African American GFR(CKD) >90 (>60 ml/min/1.73 sqM); Potassium 3.6 mmol/L (3.5-5.1); Sodium 139 mmol/L (137-145); Total Bilirubin 0.8 mg/dL (0.2-1.3); Total Protein 5.6 g/dL (6.3-8.2)
[2024-03-17 04:56] LABS: Basophils % (A) 0 %; Eosinophils # (A) 0.1 k/uL (0-0.7); Eosinophils % (A) 0 %; HCT 36.7 % (34.0-46.0); HGB 11.7 gm/dL (11.4-16.0); Lymphocytes # (A) 1.5 k/uL (1.0-4.8); Lymphocytes % (A) 9 %; MCH 29.7 pg (25.0-35.0); MCHC 31.9 g/dL (31.0-37.0); MCV 93.3 fL (80.0-100.0); Mean Platelet Volume 7.9; Monocytes # (A) 0.7 k/uL (0-1.0); Monocytes % (A) 5 %; Neutrophils # (A) 13.6 k/uL (1.3-7.7); Neutrophils % (A) 85 %; Platelet Count 371 k/uL (150-450); RBC 3.93 m/uL (3.80-5.40); RDW 13.3 % (11.5-15.5); WBC 16.1 k/uL (3.8-10.6)
[2024-03-17] MEDS ORDERED: Potassium Replacement Protocol 1 EACH MISC MISCELLANE PRN (05:00)
--- NOTE | 2024-03-17 05:18 | P.PN ---
Subjective HISTORY OF PRESENT ILLNESS: This is a 68-year-old female with a past medical history significant for hypertension and paroxysmal atrial fibrillation. Patient follows with a apprentice at [facility]. We have been asked to see the patient in consultation for cardiac arrest. Patient's family is present. Patient's family states that they heard a thump in the other room and when they went to see what happened they noticed the patient was on the floor. She was unresponsive. 911 was called and CPR was started. The patient was apparently in V-fib when EMS arrived. She did receive defibrillation along with epinephrine. Patient examined at the bedside in the emergency room. Patient remains intubated on mechanical ventilation. She is sedated with propofol. Patient's family denies any known history of CAD. Patient's blood pressure at the time of examination is low with a systolic in the 70s. Her propofol has been paused and she has been started on Levophed. Patient's family gives additional history that the patient was recently on antibiotics for a dental infection. DIAGNOSTICS: - EKG reveals sinus mechanism with a heart rate of 92. - Chest xray findings felt to reflect congestive failure. Infiltrates or other etiology not excluded. - Laboratory data: WBC 18.3. Hemoglobin 13.7. Platelet count 426. Sodium 139. Potassium 5.1. BUN 16. Creatinine 0.86. Magnesium 1.8. AST 94. ALT 44. Troponin 0.079. - Current home cardiac medications include lisinopril 5 mg daily, sotalol 80 mg twice a day, Eliquis 5 mg twice a day 03/16 Patient did have intermittent bradycardia was placed on dopamine. Left heart catheterization was performed with a mild luminal irregularities and elevated LVEDP. She remains on ventilator and opening eyes intermittently however not following obvious commands. Remaines on propofol. PHYSICAL EXAM: VITAL SIGNS: Reviewed. GENERAL: Well-developed in no acute distress. Sedated on mechanical ventilation. HEENT: Head is normocephalic. Pupils are equal, round. Sclerae anicteric. Mucous membranes of the mouth are moist. Neck supple. No JVD or thyromegaly LUNGS: Respirations even and unlabored. Lungs essentially clear to auscultation bilaterally. HEART: Regular rate and rhythm. S1 and S2 heard. ABDOMEN: Soft. Nondistended. Nontender. EXTREMITIES: Normal range of motion. No clubbing or cyanosis. Peripheral pulses intact. No lower extremity edema NEUROLOGIC: Sedated on mechanical ventilation ASSESSMENT: Ventricular fibrillation cardiac arrest, related to prolonged QT and Sotalol Prolonged QTc, measuring 470 on EKG performed in label folder Hypotension, after initiation of IV propofol, requiring vasopressor support History of hypertension Paroxysmal atrial fibrillation, on Eliquis outpatient Mild CAD Bradycardia, likely related to sedation PLAN: Hold sotalol and any QT prolonging medications Echo shows preserved EF Restart anticoagulation Monitor neuro progress and hopefully extubate soon. Suspect sedation is causing bradycardia and monitor response when extubated. Objective - Vital Signs Vital signs: Vital Signs Temp 100.0 F H 03/17/24 04:00 Pulse 62 03/17/24 05:00 Resp 18 03/17/24 05:00 BP 97/56 03/17/24 05:00 Pulse Ox 99 03/17/24 05:00 FiO2 40 03/17/24 04:25 Intake & Output 03/16/24 03/16/24 03/17/24 06:59 18:59 06:59 Intake Total 9052.474 1011.204 Output Total 1520 570 Balance -300.538 5184.204 Weight 113.398 kg 114 kg Intake: Intake, IV Titration 3006.653 8818.204 Amount DOPamine DRIP 800 mg In 8.15 Dextrose/Water 1 250ml. bag @ 2.5 MCG/KG/MIN 5. 316 mls/hr IV .Q24H [facility] Rx#:[id number] Norepinephrine 4 mg In 49.097 22.249 Sodium Chloride 0.9% 250 ml @ 0.03 MCG/KG/MIN 12. 961 mls/hr IV .[id number] [facility] Rx#:[id number] Piperacillin-Tazobactam 3 100 .375 gm In Sodium Chloride 0.9% 100 ml @ 25 mls/hr IVPB Q8HR [facility] Rx# :[id number] Sodium Chloride 0.9% 1, 1000 000 ml @ 999 mls/hr IV . Q1H1M [facility] Rx#:[id number] Sodium Chloride 0.9% 1, 735 110 000 ml In Empty Bag 1 bag @ 1 ML/KG/HR 113.398 mls /hr IV .Q8H50M [facility] Rx#: [id number] propofoL 1,000 mg In 179.396 298.955 Empty Bag 1 bag @ 15 MCG/ KG/MIN 10.206 mls/hr IV . Q9H48M [facility] Rx#:[id number] Tube Feeding 140 Other 90 Output: Gastric Drainage 70 Urine 1450 570 Other: Voiding Method Indwelling Catheter Indwelling Catheter ABP, PAP, CO, CI - Last Documented Arterial Blood Pressure 129/53 - Labs CBC & Chem 7: 03/17/24 04:35 03/17/24 04:35 Labs: Abnormal Lab Results - Last 24 Hours (Table) 03/16/24 03/16/24 03/16/24 Range/Units 09:08 09:08 09:08 WBC 18.3 H (3.8-10.6) k/uL Neutrophils # 15.6 H (1.3-7.7) k/uL ABG pO2 (83-108) mmHg ABG Total CO2 (19-24) mmol/L ABG O2 Saturation (94-97) % Chloride (98-107) mmol/L Carbon Dioxide 20 L (22-30) mmol/L Glucose 244 H (74-99) mg/dL POC Glucose (mg/dL) (70-110) mg/dL AST 94 H (14-36) U/L ALT 44 H (4-34) U/L Troponin I 0.079 H* (0.000-0.034) ng/mL Total Protein (6.3-8.2) g/dL Albumin (3.5-5.0) g/dL 03/16/24 03/16/24 03/16/24 Range/Units 13:40 16:25 19:57 WBC (3.8-10.6) k/uL Neutrophils # (1.3-7.7) k/uL ABG pO2 >420 H (83-108) mmHg ABG Total CO2 25 H (19-24) mmol/L ABG O2 Saturation 100.0 H (94-97) % Chloride (98-107) mmol/L Carbon Dioxide (22-30) mmol/L Glucose (74-99) mg/dL POC Glucose (mg/dL) 118 H 132 H (70-110) mg/dL AST (14-36) U/L ALT (4-34) U/L Troponin I (0.000-0.034) ng/mL Total Protein (6.3-8.2) g/dL Albumin (3.5-5.0) g/dL 03/16/24 03/17/24 03/17/24 Range/Units 23:38 04:34 04:35 WBC 16.1 H (3.8-10.6) k/uL Neutrophils # 13.6 H (1.3-7.7) k/uL ABG pO2 (83-108) mmHg ABG Total CO2 (19-24) mmol/L ABG O2 Saturation (94-97) % Chloride (98-107) mmol/L Carbon Dioxide (22-30) mmol/L Glucose (74-99) mg/dL POC Glucose (mg/dL) 125 H 133 H (70-110) mg/dL AST (14-36) U/L ALT (4-34) U/L Troponin I (0.000-0.034) ng/mL Total Protein (6.3-8.2) g/dL Albumin (3.5-5.0) g/dL 03/17/24 Range/Units 04:35 WBC (3.8-10.6) k/uL Neutrophils # (1.3-7.7) k/uL ABG pO2 (83-108) mmHg ABG Total CO2 (19-24) mmol/L ABG O2 Saturation (94-97) % Chloride 111 H (98-107) mmol/L Carbon Dioxide (22-30) mmol/L Glucose 127 H (74-99) mg/dL POC Glucose (mg/dL) (70-110) mg/dL AST 40 H (14-36) U/L ALT (4-34) U/L Troponin I (0.000-0.034) ng/mL Total Protein 5.6 L (6.3-8.2) g/dL Albumin 3.2 L (3.5-5.0) g/dL
[2024-03-17 05:23] LABS: ABG Base Excess 1.5 mmol/L; ABG HCO3 25 mmol/L (21-25); ABG Oxygen Saturation 99.4 % (94-97); ABG PCO2 36 mmHg (35-45); ABG PH 7.46 (7.35-7.45); ABG PO2 133 mmHg (83-108); ABG TCO2 26 mmol/L (19-24); Allen Test Performed? Yes
[2024-03-17] MEDS: POTASSIUM BICARBONATE/CIT AC 20 MEQ TABLET.EFF NG-TUBE SCH (05:53)
[2024-03-17] MEDS: MAGNESIUM SULFATE-D5W PMX 1 GM in DEXTROSE/WATER 1 100ML.BAG IVPB ONE (05:54)
[2024-03-17 06:58] LABS: Glucose,Whole Blood 234 mg/dL (70-110)
[2024-03-17 06:59] LABS: Glucose,Whole Blood 160 mg/dL (70-110)
--- NOTE | 2024-03-17 08:12 | XR ---
EXAMINATION TYPE: XR chest 1V DATE OF EXAM: 03/17/2024 COMPARISON: 03/16/2024 HISTORY: SOB, Follow Up FINDINGS: Indwelling tubes and catheters are unchanged. No change in scattered opacities. Stable appearance of the cardio-mediastinal structures at this time. IMPRESSION: 1. Stable portable chest. Clinical correlation and follow up until resolution is recommended. [facility], , 03/17/2024 8:10 AM
[2024-03-17] MEDS: PANTOPRAZOLE 40 MG/10 ML VIAL IVP SCH (08:56)
[2024-03-17] MEDS: DEXMEDETOMIDINE/0.9% NACL(PMX) 400 MCG in EMPTY BAG 1 BAG IV SCH (09:59)
[2024-03-17] MEDS: SODIUM CHLORIDE 0.9% 1,000 ML IV SCH (10:19)
[2024-03-17 12:13] LABS: Glucose,Whole Blood 108 mg/dL (70-110)
[2024-03-17] MEDS: INSULIN ASPART (NovoLOG) 100 UNIT/ML VIAL SQ SCH ×2 (12:28→18:15)
--- NOTE | 2024-03-17 12:34 | P.PN ---
Subjective Progress Note Date: 03/17/24 Principal diagnosis: V-fib cardiac arrest This is a 68-year-old female, unknown past medical history except for the fact that the patient does have history of hypertension, paroxysmal atrial fibrillation, normally sees a passenger attendant out of [facility]. Patient was brought into the ER by EMS, apparently the family heard a thump in the other room where they went to see what happened they noticed that the patient was on the floor. Patient was unresponsive, CPR was started by family members, 911 was called, upon arrival of EMS, patient was in V-fib, patient received further CPR, defibrillation, and she also received epinephrine by EMS. Brought into the emergency room intubated, patient was seen initially in the ER by myself, and I went ahead and placed a right femoral triple-lumen catheter for venous access/central access. Patient was extremely agitated, restless, unresponsive to any stimuli, quite obtunded, and her blood pressure was initially in the 70s systolic. Patient received Nimbex initially and then she her propofol was titrated, she is presently on propofol. Patient was placed on assist-control mode of mechanical ventilation, ABG now is pending. Patient was seen by cardiology and underwent cardiac catheterization and she was found to have nor mal coronaries. No significant findings according to the cardiology report. Patient was brought back to ICU after cardiac catheterization, and I saw her again in the ICU left radial arterial line was placed. Patient was noted to have intermittent episodes of bradycardia with hypotension, received 1 dose of atropine, 0.5 mg, and she responded well to atropine. With increase in the heart rate to the 80s, and blood pressure was noted to be 160 systolic with increased heart rate hence norepinephrine was being titrated and I recommended stopping norepinephrine at that point. Considered placing the patient on dopamine, but did not require to do so. According to the cardiology note, it was felt that her cardiac arrest may have been secondary to sotalol along with the recent antibiotic taken for dental infection causing prolonged QTc interval leading to ventricular fibrillation arrest. Patient was evaluated today on 03/17/2024, patient is still in ICU, intubated and mechanically ventilated. She is on assist-control rate of 18 tidal volume 450 FiO2 40% and PEEP of 5 ABG showed a pO2 of 133 pCO2 36 pH of 7.46 and straight was cut down to 16 and FiO2 Down to 35%. Patient remains on dopamine at 2.5 mcg/kg/min norepinephrine at 0.01 mcg/kg/min propofol at 30 mcg/kg/min and IV fluid at KVO. Chest x-ray showed minimal bibasilar atelectasis, slight prominence of the pulmonary vasculature, no clear-cut evidence of pneumonia. Hence Zosyn was discontinued, not to mention patient had normal procalcitonin level on admission and today WBC count is 16.1 hemoglobin is 11.7, basic metabol ic profile is normal renal profile is normal, procalcitonin is 0.38. No major issues overnight, patient remains on pressors, dopamine was added yesterday mostly because of her intermittent episodes of bradycardia with hypotension, today I plan to transition the patient from propofol to Precedex, and hopefully address weaning if possible. Will depend on her overall mental status during this transition. Objective - Vital Signs Vital signs: Vital Signs Temp 99.2 F 03/17/24 08:00 Pulse 71 03/17/24 10:30 Resp 16 03/17/24 10:30 BP 97/56 03/17/24 05:45 Pulse Ox 100 03/17/24 10:30 FiO2 35 03/17/24 10:58 Intake & Output 03/16/24 03/17/24 03/17/24 18:59 06:59 18:59 Intake Total 4771.689 6398.905 356.258 Output Total 1520 605 145 Balance -894.996 1483.905 211.258 Weight 113.398 kg 114 kg 114 kg Intake: Intake, IV Titration 6265.455 9858.905 222.258 Amount DOPamine DRIP 800 mg In 8.15 Dextrose/Water 1 250ml. bag @ 2.5 MCG/KG/MIN 5. 316 mls/hr IV .Q24H [facility] Rx#:[id number] Dexmedetomidine/0.9% NaCl 11.97 (Pmx) 400 mcg In Empty Bag 1 bag @ 0.4 MCG/KG/HR 11.4 mls/hr IV .Q8H47M [facility] Rx#:[id number] Norepinephrine 4 mg In 49.097 36.075 21.176 Sodium Chloride 0.9% 250 ml @ 0.03 MCG/KG/MIN 12. 961 mls/hr IV .[id number] [facility] Rx#:[id number] Piperacillin-Tazobactam 3 100 .375 gm In Sodium Chloride 0.9% 100 ml @ 25 mls/hr IVPB Q8HR [facility] Rx# :[id number] Sodium Chloride 0.9% 1, 40 000 ml @ 20 mls/hr IV . Q24H [facility] Rx#:[id number] Sodium Chloride 0.9% 1, 1000 000 ml @ 999 mls/hr IV . Q1H1M [facility] Rx#:[id number] Sodium Chloride 0.9% 1, 735 120 50 000 ml In Empty Bag 1 bag @ 1 ML/KG/HR 113.398 mls /hr IV .Q8H50M [facility] Rx#: [id number] propofoL 1,000 mg In 179.396 358.830 99.112 Empty Bag 1 bag @ 15 MCG/ KG/MIN 10.206 mls/hr IV . Q9H48M [facility] Rx#:[id number] Tube Feeding 160 104 Other 90 30 Output: Gastric Drainage 70 Urine 1450 605 145 Other: Voiding Method Indwelling Catheter Indwelling Catheter Indwelling Catheter ABP, PAP, CO, CI - Last Documented Arterial Blood Pressure 116/47 - Exam GENERAL: Revealed a 68-year-old female, obese, sedated on propofol, not in d istress. HEENT: Head is normocephalic. Pupils are pinpoint. Sclerae anicteric. Mucous membranes of the mouth are moist. Neck supple. No JVD or thyromegaly LUNGS: Clear bilaterally no crackles rhonchi or wheezes HEART: Distant S1-S2, no S3 gallop, no murmur. ABDOMEN obese,Soft. Nondistended. Nontender. Positive bowel sounds. EXTREMITIES: No deformities and no limitation range of motion, no clubbing edema or cyanosis. Distal pulses are diminished bilaterally. NEUROLOGIC: Could not assess, patient is sedated and mechanically ventilated Psychiatric: Could not assess. - Labs CBC & Chem 7: 03/17/24 04:35 03/17/24 04:35 Labs: Abnormal Lab Results - Last 24 Hours (Table) 03/16/24 03/16/24 03/16/24 Range/Units 09:17 11:43 13:40 WBC (3.8-10.6) k/uL Neutrophils # (1.3-7.7) k/uL ABG pH (7.35-7.45) ABG pO2 >420 H (83-108) mmHg ABG Total CO2 25 H (19-24) mmol/L ABG O2 Saturation 100.0 H (94-97) % Chloride (98-107) mmol/L Glucose (74-99) mg/dL POC Glucose (mg/dL) 234 H 160 H (70-110) mg/dL Hemoglobin A1c (<=6.0) % AST (14-36) U/L Total Protein (6.3-8.2) g/dL Albumin (3.5-5.0) g/dL 03/16/24 03/16/24 03/16/24 Range/Units 16:25 19:57 23:38 WBC (3.8-10.6) k/uL Neutrophils # (1.3-7.7) k/uL ABG pH (7.35-7.45) ABG pO2 (83-108) mmHg ABG Total CO2 (19-24) mmol/L ABG O2 Saturation (94-97) % Chloride (98-107) mmol/L Glucose (74-99) mg/dL POC Glucose (mg/dL) 118 H 132 H 125 H (70-110) mg/dL Hemoglobin A1c (<=6.0) % AST (14-36) U/L Total Protein (6.3-8.2) g/dL Albumin (3.5-5.0) g/dL 03/17/24 03/17/24 03/17/24 Range/Units 04:34 04:35 04:35 WBC 16.1 H (3.8-10.6) k/uL Neutrophils # 13.6 H (1.3-7.7) k/uL ABG pH (7.35-7.45) ABG pO2 (83-108) mmHg ABG Total CO2 (19-24) mmol/L ABG O2 Saturation (94-97) % Chloride (98-107) mmol/L Glucose (74-99) mg/dL POC Glucose (mg/dL) 133 H (70-110) mg/dL Hemoglobin A1c 6.4 H (<=6.0) % AST (14-36) U/L Total Protein (6.3-8.2) g/dL Albumin (3.5-5.0) g/dL 03/17/24 03/17/24 Range/Units 04:35 05:10 WBC (3.8-10.6) k/uL Neutrophils # (1.3-7.7) k/uL ABG pH 7.46 H (7.35-7.45) ABG pO2 133 H (83-108) mmHg ABG Total CO2 26 H (19-24) mmol/L ABG O2 Saturation 99.4 H (94-97) % Chloride 111 H (98-107) mmol/L Glucose 127 H (74-99) mg/dL POC Glucose (mg/dL) (70-110) mg/dL Hemoglobin A1c (<=6.0) % AST 40 H (14-36) U/L Total Protein 5.6 L (6.3-8.2) g/dL Albumin 3.2 L (3.5-5.0) g/dL Microbiology - Last 24 Hours (Table) 03/16/24 09:18 Gram Stain - Preliminary Sputum Sputum Culture - Preliminary Assessment and Plan Assessment: Impression: Acute ventricular fibrillation cardiac arrest requiring CPR, exact downtime is unknown. Prolonged QTc interval, may be related to a combination of medications including sotalol and antibiotics. Hypotension secondary to cardiac arrest and secondary to arrhythmia History of benign essential hypertension History of paroxysmal atrial fibrillation normally on Eliquis Recommendation: Continue ventilatory support, Discontinue antibiotics today Resume Eliquis Taper and likely discontinue norepinephrine May consider tapering and stopping dopamine Will try the patient on Precedex to replace propofol and hopefully assess mental status off propofol. Continue nutritional support Sedation interruption today and possibly check weaning parameters Continue to monitor in the ICU GI and DVT prophylaxis Patient remains critically ill Critical care time is over 30 Will continue to follow. Time with Patient: Greater than 30
[2024-03-17 13:12] LABS: ABG Base Excess 2.8 mmol/L; ABG HCO3 27 mmol/L (21-25); ABG Oxygen Saturation 99.3 % (94-97); ABG PCO2 41 mmHg (35-45); ABG PH 7.43 (7.35-7.45); ABG PO2 130 mmHg (83-108); ABG TCO2 29 mmol/L (19-24)
[2024-03-17 13:17] LABS: Allen Test Performed? no
[2024-03-17] MEDS: HEPARIN SODIUM,PORCINE 10,000 UNIT in SODIUM CHLORIDE 0.9% 1,000 ML IRRIGATION PRN (13:59)
[2024-03-17] MEDS: HEPARIN SODIUM,PORCINE (1 ML) 2,500 UNIT in SODIUM CHLORIDE 0.9% 250 ML IRRIGATION PRN (13:59)
--- NOTE | 2024-03-17 15:40 | P.PN ---
Subjective Progress Note Date: 03/17/24 No new complaints today. Patient is following commands. Denies any pain at this time. Is anticipating extubation. Remains on dopamine drip for heart rates with hopes to off titrate per nursing. General: intubated, HEENT: normocephalic, atraumatic, no tracheal deviation Respiratory: symmetric chest rise, no cyanosis, ventilator dependent CVS: perfusing all extremities, no distal gangrene, no pitting edema GI: soft, ND : no SPT, no CVAT, mccoy is present Neuro: Following commands Hospital course: Patient is a 68-year-old female with history of hypertension, atrial fibrillation on Eliquis had an outside [id number] cardiac arrest. Patient's temperature was 97.6, pulse 100, respiratory rate 24, blood pressure 183/109 saturating at 97% with mechanical ventilation. Chest x-ray indepe ndently interpreted, showed bilateral interstitial opacities. Chest CTA did not show any PE, bilateral rib fractures secondary to CPR, possible aspiration versus pneumonia, pulmonary edema. Head and neck CT did not show any acute fractures, otherwise no acute process. Patient was started on EKG showed sinus arrhythmia, fascicular block, no significant ST or T wave changes. Patient was evaluated by cardiology and pulmonology. She was taken directly to cardiac cath, and then transferred to medical ICU. -Reportedly, left heart cath showed no significant coronary artery disease Assessment/Plan: Active: [id number] V-fib cardiac arrest Acute encephalopathy, likely metabolic Elevated troponin Leukocytosis Shock, likely cardiogenic versus medication induced History of atrial fibrillation Suspected aspiration pneumonia -Patient is currently mechanically ventilated -Pulmonology consulted, pending recommendations -Continue to wean pressors and sedation -Zosyn discontinued -Sputum cultures, procalcitonin pending -Patient on Eliquis at home, off of AC here Hyperglycemia, likely reactive -A1c ordered -Sliding scale insulin, every 4 hours as needed, monitor for hypoglycemia Intertrigo -Nystatin powder The patient is admitted with an anticipated greater than 2 midnight stay as inpatient status for evaluation of cardiac arrest. Surrogate decision-maker: Stefan CODE STATUS: Full code DVT prophylaxis: heparin Anticipated discharge date: Pending clinical course Anticipated discharge place: Pending clinical course Objective - Vital Signs Vital signs: Vital Signs Temp 99.1 F 03/17/24 12:00 Pulse 112 H 03/17/24 14:15 Resp 20 03/17/24 14:15 BP 108/52 03/17/24 12:30 Pulse Ox 99 03/17/24 14:15 FiO2 35 03/17/24 12:38 Intake & Output 03/16/24 03/17/24 03/17/24 18:59 06:59 18:59 Intake Total 2967.647 5005.905 637.299 Output Total 1520 605 470 Balance -906.617 6357.905 167.299 Weight 113.398 kg 114 kg 114 kg Intake: IV 50 Intake, IV Titration 2667.038 8255.905 449.299 Amount DOPamine DRIP 800 mg In 8.15 125.546 Dextrose/Water 1 250ml. bag @ 2.5 MCG/KG/MIN 5. 316 mls/hr IV .Q24H [facility] Rx#:[id number] Dexmedetomidine/0.9% NaCl 53.960 (Pmx) 400 mcg In Empty Bag 1 bag @ 0.4 MCG/KG/HR 11.4 mls/hr IV .Q8H47M [facility] Rx#:[id number] Norepinephrine 4 mg In 49.097 36.075 21.176 Sodium Chloride 0.9% 250 ml @ 0.03 MCG/KG/MIN 12. 961 mls/hr IV .[id number] [facility] Rx#:[id number] Piperacillin-Tazobactam 3 100 .375 gm In Sodium Chloride 0.9% 100 ml @ 25 mls/hr IVPB Q8HR [facility] Rx# :[id number] Sodium Chloride 0.9% 1, 80 000 ml @ 20 mls/hr IV . Q24H [facility] Rx#:[id number] Sodium Chloride 0.9% 1, 1000 000 ml @ 999 mls/hr IV . Q1H1M [facility] Rx#:[id number] Sodium Chloride 0.9% 1, 735 120 50 000 ml In Empty Bag 1 bag @ 1 ML/KG/HR 113.398 mls /hr IV .Q8H50M [facility] Rx#: [id number] propofoL 1,000 mg In 179.396 358.830 118.617 Empty Bag 1 bag @ 15 MCG/ KG/MIN 10.206 mls/hr IV . Q9H48M [facility] Rx#:[id number] Tube Feeding 160 128 Other 90 60 Output: Gastric Drainage 70 Urine 1450 605 470 Other: Voiding Method Indwelling Catheter Indwelling Catheter Indwelling Catheter ABP, PAP, CO, CI - Last Documented Arterial Blood Pressure 141/75 - Labs CBC & Chem 7: 03/17/24 04:35 03/17/24 04:35 Labs: Abnormal Lab Results - Last 24 Hours (Table) 03/16/24 03/16/24 03/16/24 Range/Units 09:17 11:43 13:40 WBC (3.8-10.6) k/uL Neutrophils # (1.3-7.7) k/uL ABG pH (7.35-7.45) ABG pO2 >420 H (83-108) mmHg ABG HCO3 (21-25) mmol/L ABG Total CO2 25 H (19-24) mmol/L ABG O2 Saturation 100.0 H (94-97) % Chloride (98-107) mmol/L Glucose (74-99) mg/dL POC Glucose (mg/dL) 234 H 160 H (70-110) mg/dL Hemoglobin A1c (<=6.0) % AST (14-36) U/L Total Protein (6.3-8.2) g/dL Albumin (3.5-5.0) g/dL 03/16/24 03/16/24 03/16/24 Range/Units 16:25 19:57 23:38 WBC (3.8-10.6) k/uL Neutrophils # (1.3-7.7) k/uL ABG pH (7.35-7.45) ABG pO2 (83-108) mmHg ABG HCO3 (21-25) mmol/L ABG Total CO2 (19-24) mmol/L ABG O2 Saturation (94-97) % Chloride (98-107) mmol/L Glucose (74-99) mg/dL POC Glucose (mg/dL) 118 H 132 H 125 H (70-110) mg/dL Hemoglobin A1c (<=6.0) % AST (14-36) U/L Total Protein (6.3-8.2) g/dL Albumin (3.5-5.0) g/dL 03/17/24 03/17/24 03/17/24 Range/Units 04:34 04:35 04:35 WBC 16.1 H (3.8-10.6) k/uL Neutrophils # 13.6 H (1.3-7.7) k/uL ABG pH (7.35-7.45) ABG pO2 (83-108) mmHg ABG HCO3 (21-25) mmol/L ABG Total CO2 (19-24) mmol/L ABG O2 Saturation (94-97) % Chloride (98-107) mmol/L Glucose (74-99) mg/dL POC Glucose (mg/dL) 133 H (70-110) mg/dL Hemoglobin A1c 6.4 H (<=6.0) % AST (14-36) U/L Total Protein (6.3-8.2) g/dL Albumin (3.5-5.0) g/dL 03/17/24 03/17/24 03/17/24 Range/Units 04:35 05:10 13:10 WBC (3.8-10.6) k/uL Neutrophils # (1.3-7.7) k/uL ABG pH 7.46 H (7.35-7.45) ABG pO2 133 H 130 H (83-108) mmHg ABG HCO3 27 H (21-25) mmol/L ABG Total CO2 26 H 29 H (19-24) mmol/L ABG O2 Saturation 99.4 H 99.3 H (94-97) % Chloride 111 H (98-107) mmol/L Glucose 127 H (74-99) mg/dL POC Glucose (mg/dL) (70-110) mg/dL Hemoglobin A1c (<=6.0) % AST 40 H (14-36) U/L Total Protein 5.6 L (6.3-8.2) g/dL Albumin 3.2 L (3.5-5.0) g/dL Microbiology - Last 24 Hours (Table) 03/16/24 09:18 Gram Stain - Preliminary Sputum Sputum Culture - Preliminary
[2024-03-17] MEDS: DOBUTamine DRIP 500 MG in DEXTROSE/WATER 1 250ML.BAG IV SCH (16:01)
[2024-03-17 18:07] LABS: Glucose,Whole Blood 119 mg/dL (70-110)
[2024-03-17 19:59] LABS: Glucose,Whole Blood 96 mg/dL (70-110)
[2024-03-17] MEDS: lisinopriL 5 MG TAB PO SCH (21:37)
[2024-03-17] MEDS: hydrALAZINE HCL 20 MG/ML 1 ML VIAL IVP PRN (22:25)
[2024-03-18] MEDS: lisinopriL 10 MG TAB PO STA (00:21)
[2024-03-18] MEDS: hydrALAZINE HCL 20 MG/ML 1 ML VIAL IVP PRN (03:23)
[2024-03-18 05:12] LABS: Basophils % (A) 0 %; Eosinophils % (A) 0 %; HCT 36.8 % (34.0-46.0); Lymphocytes # (A) 1.3 k/uL (1.0-4.8); Lymphocytes % (A) 9 %; MCH 30.4 pg (25.0-35.0); MCHC 32.5 g/dL (31.0-37.0); MCV 93.3 fL (80.0-100.0); Mean Platelet Volume 7.8; Monocytes # (A) 0.7 k/uL (0-1.0); Monocytes % (A) 5 %; Neutrophils # (A) 12.2 k/uL (1.3-7.7); Neutrophils % (A) 85 %; Platelet Count 322 k/uL (150-450); RBC 3.94 m/uL (3.80-5.40); RDW 13.3 % (11.5-15.5); WBC 14.5 k/uL (3.8-10.6)
[2024-03-18 05:25] LABS: African American GFR (CKD) >90 (>60 ml/min/1.73 sqM); Anion Gap 3 mmol/L; Blood Urea Nitrogen 15 mg/dL (7-17); Calcium 8.8 mg/dL (8.4-10.2); Carbon Dioxide 27 mmol/L (22-30); Chloride 109 mmol/L (98-107); Glucose 109 mg/dL (74-99); Magnesium 1.8 mg/dL (1.6-2.3); Non-African American GFR(CKD) >90 (>60 ml/min/1.73 sqM); Potassium 3.6 mmol/L (3.5-5.1); Sodium 139 mmol/L (137-145)
[2024-03-18 06:10] LABS: Glucose,Whole Blood 90 mg/dL (70-110)
[2024-03-18] MEDS: POTASSIUM CHLORIDE ER 20 MEQ TAB.ER PO STA (07:00)
[2024-03-18] MEDS: MAGNESIUM SULFATE-D5W PMX 1 GM in DEXTROSE/WATER 1 100ML.BAG IVPB ONE (07:06)
--- NOTE | 2024-03-18 08:30 | P.PN ---
Subjective HISTORY OF PRESENT ILLNESS: This is a 68-year-old female with a past medical history significant for hypertension and paroxysmal atrial fibrillation. Patient follows with a student outreach coordinator at [facility]. We have been asked to see the patient in consultation for cardiac arrest. Patient's family is present. Patient's family states that they heard a thump in the other room and when they went to see what happened they noticed the patient was on the floor. She was unresponsive. 911 was called and CPR was started. The patient was apparently in V-fib when EMS arrived. She did receive defibrillation along with epinephrine. Patient examined at the bedside in the emergency room. Patient remains intubated on mechanical ventilation. She is sedated with propofol. Patient's family denies any known history of CAD. Patient's blood pressure at the time of examination is low with a systolic in the 70s. Her propofol has been paused and she has been started on Levophed. Patient's family gives additional history that the patient was recently on antibiotics for a dental infection. DIAGNOSTICS: - EKG reveals sinus mechanism with a heart rate of 92. - Chest xray findings felt to reflect congestive failure. Infiltrates or other etiology not excluded. - Laboratory data: WBC 18.3. Hemoglobin 13.7. Platelet count 426. Sodium 139. Potassium 5.1. BUN 16. Creatinine 0.86. Magnesium 1.8. AST 94. ALT 44. Troponin 0.079. - Current home cardiac medications include lisinopril 5 mg daily, sotalol 80 mg twice a day, Eliquis 5 mg twice a day 03/17 Patient did have intermittent bradycardia was placed on dopamine. Left heart catheterization was performed with a mild luminal irregularities and elevated LVEDP. She remains on ventilator and opening eyes intermittently however not following obvious commands. Remaines on propofol. 03/18 patient seen and examined. Patient was extubated and currently denies any chest pain or pressure or shortness of breath.she has continued to have intermittent episodes of atrial flutter/ atrial tachycardia with additional sinus bradycardia with heart rates in the 40s. She states prior to this episode she did not really have any episodes of lightheadedness or dizziness and has not had a prior syncope. She denies any family history of sudden cardiac . She does follow with Dr. Joel in [facility]. She can usually not feel her A. fib or atrial flutter. Echo performed with EF 50-55%. EKG from 09/16 shows QTC 496 when in sinus rhythm at heart rate 63 bpm. PHYSICAL EXAM: VITAL SIGNS: Reviewed. GENERAL: Well-developed in no acute distress. Sedated on mechanical ventilation. HEENT: Head is normocephalic. Pupils are equal, round. Sclerae anicteric. Mucous membranes of the mouth are moist. Neck supple. No JVD or thyromegaly LUNGS: Respirations even and unlabored. Lungs essentially clear to auscultation bilaterally. HEART: Regular rate and rhythm. S1 and S2 heard. ABDOMEN: Soft. Nondistended. Nontender. EXTREMITIES: Normal range of motion. No clubbing or cyanosis. Peripheral pulses intact. No lower extremity edema NEUROLOGIC: Sedated on mechanical ventilation ASSESSMENT: Ventricular fibrillation cardiac arrest, related to prolonged QT and Sotalol Prolonged QTc, measuring 470 on EKG performed in scientific laboratory supervisor Hypotension, after initiation of IV propofol, requiring vasopressor support History of hypertension Paroxysmal atrial fibrillation, on [facility] outpatient Mild CAD Bradycardia, likely related to sedation PLAN: Hold sotalol and any QT prolonging medications Echo shows preserved EF continue anticoagulation patient still having intermittent episodes of bradycardia as well as tachycardia with what appears to be more atrial flutter/atrial tachycardia. Concern of long QT syndrome and will consider genetic testing. Usual treatment is beta blockers however likely will be unable to tolerate with additional concern of tachybradycardia syndrome. Possible consideration of A. fib ablation however we will have electrophysiology consult for further recommendations. Trial of amiodarone and monitor heart rates. Patient still somewhat confused and monitor neurologic progress. Increase lisinopril for better blood pressure control. Objective - Vital Signs Vital signs: Vital Signs Temp 99.2 F 03/18/24 04:15 Pulse 101 H 03/18/24 07:00 Resp 19 03/18/24 07:00 BP 160/84 03/18/24 03:30 Pulse Ox 96 03/18/24 07:00 FiO2 35 03/17/24 12:38 Intake & Output 03/17/24 03/18/24 03/18/24 18:59 06:59 18:59 Intake Total 745.799 240 20 Output Total 995 585 40 Balance -249.201 -345 -20 Weight 114 kg 110.858 kg Intake: Intake, IV Titration 557.799 240 20 Amount DOBUTamine DRIP 500 mg In 8.5 Dextrose/Water 1 250ml. bag @ 2.5 MCG/KG/MIN 8.55 mls/hr IV .Q24H DAVID Rx#: [id number] DOPamine DRIP 800 mg In 125.546 Dextrose/Water 1 250ml. bag @ 2.5 MCG/KG/MIN 5. 316 mls/hr IV .Q24H DAVID Rx#:[id number] Dexmedetomidine/0.9% NaCl 53.960 (Pmx) 400 mcg In Empty Bag 1 bag @ 0.4 MCG/KG/HR 11.4 mls/hr IV .Q8H47M DAVID Rx#:[id number] Norepinephrine 4 mg In 21.176 Sodium Chloride 0.9% 250 ml @ 0.03 MCG/KG/MIN 12. 961 mls/hr IV .[id number] DAVID Rx#:[id number] Sodium Chloride 0.9% 1, 180 240 20 000 ml @ 20 mls/hr IV . Q24H [facility]ID Rx#:[id number] Sodium Chloride 0.9% 1, 50 000 ml In Empty Bag 1 bag @ 1 ML/KG/HR 113.398 mls /hr IV .Q8H50M DAVID Rx#: [id number] propofoL 1,000 mg In 118.617 Empty Bag 1 bag @ 15 MCG/ KG/MIN 10.206 mls/hr IV . Q9H48M DAVID Rx#:[id number] Tube Feeding 128 Other 60 Output: Urine 995 585 40 Other: Voiding Method Indwelling Catheter Indwelling Catheter ABP, PAP, CO, CI - Last Documented Arterial Blood Pressure 187/77 - Labs CBC & Chem 7: 03/18/24 04:45 03/18/24 04:45 Labs: Abnormal Lab Results - Last 24 Hours (Table) 03/17/24 03/17/24 03/17/24 Range/Units 04:35 13:10 18:05 WBC (3.8-10.6) k/uL Neutrophils # (1.3-7.7) k/uL ABG pO2 130 H (83-108) mmHg ABG HCO3 27 H (21-25) mmol/L ABG Total CO2 29 H (19-24) mmol/L ABG O2 Saturation 99.3 H (94-97) % Chloride (98-107) mmol/L Creatinine (0.52-1.04) mg/dL Glucose (74-99) mg/dL POC Glucose (mg/dL) 119 H (70-110) mg/dL Hemoglobin A1c 6.4 H (<=6.0) % 03/18/24 03/18/24 Range/Units 04:45 04:45 WBC 14.5 H (3.8-10.6) k/uL Neutrophils # 12.2 H (1.3-7.7) k/uL ABG pO2 (83-108) mmHg ABG HCO3 (21-25) mmol/L ABG Total CO2 (19-24) mmol/L ABG O2 Saturation (94-97) % Chloride 109 H (98-107) mmol/L Creatinine 0.50 L (0.52-1.04) mg/dL Glucose 109 H (74-99) mg/dL POC Glucose (mg/dL) (70-110) mg/dL Hemoglobin A1c (<=6.0) % Microbiology - Last 24 Hours (Table) 03/16/24 09:18 Gram Stain - Preliminary Sputum Sputum Culture - Preliminary
[2024-03-18] MEDS: AMIODARONE 360 MG in DEXTROSE 5% IN WATER 200 ML IV ONE (08:40)
[2024-03-18] MEDS: APIXABAN 5 MG TAB PO SCH (08:46)
[2024-03-18] MEDS: lisinopriL 20 MG TAB PO SCH (08:46)
--- NOTE | 2024-03-18 09:48 | XR ---
EXAMINATION TYPE: XR chest 1V portable DATE OF EXAM: 03/18/2024 COMPARISON: 03/17/2024 INDICATION: Hypoxemia TECHNIQUE: Single frontal view of the chest is obtained. FINDINGS: The heart size is enlarged. The pulmonary vasculature is normal. Mild left lower lobe infiltrate is present. Correlate for atelectasis or pneumonia. Endotracheal tube and nasogastric tube removed. IMPRESSION: 1. Suggestion of improving left lower lobe atelectasis or pneumonia. [facility], Workstation: [facility], 03/18/2024 9:45 AM
[2024-03-18 11:03] LABS: Glucose,Whole Blood 108 mg/dL (70-110)
[2024-03-18] MEDS: SODIUM CHLORIDE 0.9% 500 ML 500 ML IV ONE (11:30)
--- NOTE | 2024-03-18 11:49 | P.PN ---
Subjective Progress Note Date: 03/18/24 Principal diagnosis: V-fib cardiac arrest This is a 68-year-old female, unknown past medical history except for the fact that the patient does have history of hypertension, paroxysmal atrial fibrillation, normally sees a supervisor telephone answering service out of [facility]. Patient was brought into the ER by EMS, apparently the family heard a thump in the other room where they went to see what happened they noticed that the patient was on the floor. Patient was unresponsive, CPR was started by family members, 911 was called, upon arrival of EMS, patient was in V-fib, patient received further CPR, defibrillation, and she also received epinephrine by EMS. Brought into the emergency room intubated, patient was seen initially in the ER by myself, and I went ahead and placed a right femoral triple-lumen catheter for venous access/central access. Patient was extremely agitated, restless, unresponsive to any stimuli, quite obtunded, and her blood pressure was initially in the 70s systolic. Patient received Nimbex initially and then she her propofol was titrated, she is presently on propofol. Patient was placed on assist-control mode of mechanical ventilation, ABG now is pending. Patient was seen by cardiology and underwent cardiac catheterization and she was found to have nor mal coronaries. No significant findings according to the cardiology report. Patient was brought back to ICU after cardiac catheterization, and I saw her again in the ICU left radial arterial line was placed. Patient was noted to have intermittent episodes of bradycardia with hypotension, received 1 dose of atropine, 0.5 mg, and she responded well to atropine. With increase in the heart rate to the 80s, and blood pressure was noted to be 160 systolic with increased heart rate hence norepinephrine was being titrated and I recommended stopping norepinephrine at that point. Considered placing the patient on dopamine, but did not require to do so. According to the cardiology note, it was felt that her cardiac arrest may have been secondary to sotalol along with the recent antibiotic taken for dental infection causing prolonged QTc interval leading to ventricular fibrillation arrest. Patient was evaluated today on 03/17/2024, patient is still in ICU, intubated and mechanically ventilated. She is on assist-control rate of 18 tidal volume 450 FiO2 40% and PEEP of 5 ABG showed a pO2 of 133 pCO2 36 pH of 7.46 and straight was cut down to 16 and FiO2 Down to 35%. Patient remains on dopamine at 2.5 mcg/kg/min norepinephrine at 0.01 mcg/kg/min propofol at 30 mcg/kg/min and IV fluid at KVO. Chest x-ray showed minimal bibasilar atelectasis, slight prominence of the pulmonary vasculature, no clear-cut evidence of pneumonia. Hence Zosyn was discontinued, not to mention patient had normal procalcitonin level on admission and today WBC count is 16.1 hemoglobin is 11.7, basic metabol ic profile is normal renal profile is normal, procalcitonin is 0.38. No major issues overnight, patient remains on pressors, dopamine was added yesterday mostly because of her intermittent episodes of bradycardia with hypotension, today I plan to transition the patient from propofol to Precedex, and hopefully address weaning if possible. Will depend on her overall mental status during this transition. \ Was seen today on 03/18/2024, patient was extubated yesterday from mechanical ventilation, and she is now on nasal cannula. No major issues overnight, patient is on 2 L nasal cannula, however she is on amiodarone 1 mg/min as ordered by cardiology, blood pressure is elevated patient is requiring lisinopril and hydralazine. Her mental status is not perfect, patient seems to be confused had no idea where she was, she felt that she was in [facility], she also did not know the year and or the month did not know the name of the president. WBC count today is 14.5 hemoglobin is 12 electrolytes are normal renal profile is normal renal profile is normal chest x-ray today is sh owing evidence of left basilar atelectasis, possible pneumonia involving the left lower lobe with air bronchogram could be seen in the retrocardiac area. Considering the patient is having intermittent fevers, patient needs to go back on antibiotics. The choices are limited, but at this point I believe Zosyn would be a better choice for this patient considering that the patient may have also aspirated. Will ask infectious disease to evaluate specially with the choice of antibiotics being limited procalcitonin initially was normal infectious disease will see on consultation Objective - Vital Signs Vital signs: Vital Signs Temp 110.9 F H 03/18/24 08:00 Pulse 141 H 03/18/24 11:00 Resp 29 H 03/18/24 11:00 BP 160/84 03/18/24 03:30 Pulse Ox 96 03/18/24 11:00 FiO2 35 03/17/24 12:38 Intake & Output 03/17/24 03/18/24 03/18/24 18:59 06:59 18:59 Intake Total 745.799 240 450 Output Total 995 585 295 Balance -249.201 -345 155 Weight 114 kg 110.858 kg Intake: IV 80 Sodium Chloride 0.9% 1, 80 000 ml @ 20 mls/hr IV . Q24H DAVID Rx#:[id number] Intake, IV Titration 557.799 240 120 Amount DOBUTamine DRIP 500 mg In 8.5 Dextrose/Water 1 250ml. bag @ 2.5 MCG/KG/MIN 8.55 mls/hr IV .Q24H DAVID Rx#: [id number] DOPamine DRIP 800 mg In 125.546 Dextrose/Water 1 250ml. bag @ 2.5 MCG/KG/MIN 5. 316 mls/hr IV .Q24H [facility]ID Rx#:[id number] Dexmedetomidine/0.9% NaCl 53.960 (Pmx) 400 mcg In Empty Bag 1 bag @ 0.4 MCG/KG/HR 11.4 mls/hr IV .Q8H47M [facility] Rx#:[id number] Magnesium Sulfate-D5w Pmx 100 1 gm In Dextrose/Water 1 100ml.bag @ 100 mls/hr IVPB ONCE ONE Rx#: [id number] Norepinephrine 4 mg In 21.176 Sodium Chloride 0.9% 250 ml @ 0.03 MCG/KG/MIN 12. 961 mls/hr IV .[id number] DAVID Rx#:[id number] Sodium Chloride 0.9% 1, 180 240 20 000 ml @ 20 mls/hr IV . Q24H DAVID Rx#:[id number] Sodium Chloride 0.9% 1, 50 000 ml In Empty Bag 1 bag @ 1 ML/KG/HR 113.398 mls /hr IV .Q8H50M DAVID Rx#: [id number] propofoL 1,000 mg In 118.617 Empty Bag 1 bag @ 15 MCG/ KG/MIN 10.206 mls/hr IV . Q9H48M [facility]ID Rx#:[id number] Oral 250 Tube Feeding 128 Other 60 Output: Urine 995 585 295 Other: Voiding Method Indwelling Catheter Indwelling Catheter ABP, PAP, CO, CI - Last Documented Arterial Blood Pressure 158/62 - Exam GENERAL: Revealed a 68-year-old female, obese, on nasal cannula, not in distress HEENT: Head is normocephalic. Dry mucous membranes. LUNGS: Clear bilaterally no crackles rhonchi or wheezes HEART: Distant S1-S2, no S3 gallop, no murmur. ABDOMEN obese,Soft. Nondistended. Nontender. Positive bowel sounds. EXTREMITIES: No deformities and no limitation range of motion, no clubbing edema or cyanosis. Distal pulses are diminished bilaterally. NEUROLOGIC: Awake, confused, no gross focal neurologic deficit except for her mental confusion state. Psychiatric: Normal mood, affect, confused mental status - Labs CBC & Chem 7: 03/18/24 04:45 03/18/24 04:45 Labs: Abnormal Lab Results - Last 24 Hours (Table) 03/17/24 03/17/24 03/18/24 Range/Units 13:10 18:05 04:45 WBC (3.8-10.6) k/uL Neutrophils # (1.3-7.7) k/uL ABG pO2 130 H (83-108) mmHg ABG HCO3 27 H (21-25) mmol/L ABG Total CO2 29 H (19-24) mmol/L ABG O2 Saturation 99.3 H (94-97) % Chloride 109 H (98-107) mmol/L Creatinine 0.50 L (0.52-1.04) mg/dL Glucose 109 H (74-99) mg/dL POC Glucose (mg/dL) 119 H (70-110) mg/dL 03/18/24 Range/Units 04:45 WBC 14.5 H (3.8-10.6) k/uL Neutrophils # 12.2 H (1.3-7.7) k/uL ABG pO2 (83-108) mmHg ABG HCO3 (21-25) mmol/L ABG Total CO2 (19-24) mmol/L ABG O2 Saturation (94-97) % Chloride (98-107) mmol/L Creatinine (0.52-1.04) mg/dL Glucose (74-99) mg/dL POC Glucose (mg/dL) (70-110) mg/dL Microbiology - Last 24 Hours (Table) 03/16/24 09:18 Gram Stain - Final Sputum Sputum Culture - Final Assessment and Plan Assessment: Impression: Acute ventricular fibrillation cardiac arrest requiring CPR, exact downtime is unknown. Prolonged QTc interval, may be related to a combination of medications including sotalol and antibiotics. Hypotension secondary to cardiac arrest and secondary to arrhythmia History of benign essential hypertension History of paroxysmal atrial fibrillation normally on Eliquis Suspect aspiration pneumonia with recurrent fever, low-grade temp, and abnormal chest x-ray. Altered mental status, possible anoxic brain injury from her recent cardiac arrest Recommendation: Continue oxygen at 2 L and titrate accordingly Continue to monitor in the ICU Consult infectious disease Consult neurology Resume Eliquis Cardiology is addressing her hypertension and arrhythmia issues Continue nutritional support GI and DVT prophylaxis Will continue to follow. Time with Patient: Less than 30
[2024-03-18] MEDS: PIPERACILLIN-TAZOBACTAM 3.375 GM in SODIUM CHLORIDE 0.9% 100 ML IVPB SCH (12:11)
[2024-03-18] MEDS: AMIODARONE 450 MG in DEXTROSE 5% IN WATER 250 ML IV SCH (14:24)
[2024-03-18] MEDS: ACETAMINOPHEN TAB 325 MG TAB PO PRN (15:21)
[2024-03-18 16:31] LABS: Glucose,Whole Blood 110 mg/dL (70-110)
--- NOTE | 2024-03-18 16:54 | P.PN ---
Subjective Progress Note Date: 03/18/24 No new complaints today. Patient is following commands. HRs better controlled on amiodarone gtt (dopamine for bradycardia was discontinued and pt went into AFib with RVR overnight.) General: intubated, HEENT: normocephalic, atraumatic, no tracheal deviation Respiratory: symmetric chest rise, no cyanosis, ventilator dependent CVS: perfusing all extremities, no distal gangrene, no pitting edema GI: soft, ND : no SPT, no CVAT, mccoy is present Neuro: Following commands Hospital course: Patient is a 68-year-old female with history of hypertension, atrial fibrillation on Eliquis had an outside [id number] cardiac arrest. Patient's temperature was 97.6, pulse 100, respiratory rate 24, blood pressure 183/109 saturating at 97% with mechanical ventilation. Chest x-ray independently interpreted, showed bilateral interstitial opacities. Chest CTA did not show any PE, bilateral rib fractures secondary to CPR, possible aspiration versus pneumonia, pulmonary edema. Head and neck CT did not show any acute fractures, otherwise no acute process. Patient was started on EKG showed sinus arrhythmia, fascicular block, no significant ST or T wave changes. Patient was evaluated by cardiology and pulmonology. She was taken directly to cardiac cath, and then transferred to medical ICU. -Reportedly, left heart cath showed no significant coronary artery disease Assessment/Plan: Active: [id number] V-fib cardiac arrest Acute encephalopathy, likely metabolic Elevated troponin Leukocytosis Shock, likely cardiogenic versus medication induced History of atrial fibrillation Suspected aspiration pneumonia -Pulmonology consulted, pending recommendations -Continue to wean pressors and sedation -Zosyn discontinued -Sputum cultures negative, procalcitonin 0.08 -Patient on Eliquis Hyperglycemia, likely reactive -A1c ordered -Sliding scale insulin, every 4 hours as needed, monitor for hypoglycemia Intertrigo -Nystatin powder The patient is admitted with an anticipated greater than 2 midnight stay as inpatient status for evaluation of cardiac arrest. Surrogate decision-maker: Son CODE STATUS: Full code DVT prophylaxis: heparin Anticipated discharge date: Pending clinical course Anticipated discharge place: Pending clinical course Objective - Vital Signs Vital signs: Vital Signs Temp 99.1 F 03/18/24 16:00 Pulse 91 03/18/24 16:15 Resp 25 H 03/18/24 16:15 BP 169/66 03/18/24 12:30 Pulse Ox 98 03/18/24 16:15 FiO2 35 03/17/24 12:38 Intake & Output 03/17/24 03/18/24 03/18/24 18:59 06:59 18:59 Intake Total 745.519 717 1152 Output Total 995 585 410 Balance -249.201 -345 1240 Weight 114 kg 110.858 kg Intake: IV 180 Sodium Chloride 0.9% 1, 180 000 ml @ 20 mls/hr IV . Q24H DAVID Rx#:[id number] Intake, IV Titration 557.799 240 720 Amount DOBUTamine DRIP 500 mg In 8.5 Dextrose/Water 1 250ml. bag @ 2.5 MCG/KG/MIN 8.55 mls/hr IV .Q24H DAVID Rx#: [id number] DOPamine DRIP 800 mg In 125.546 Dextrose/Water 1 250ml. bag @ 2.5 MCG/KG/MIN 5. 316 mls/hr IV .Q24H DAVID Rx#:[id number] Dexmedetomidine/0.9% NaCl 53.960 (Pmx) 400 mcg In Empty Bag 1 bag @ 0.4 MCG/KG/HR 11.4 mls/hr IV .Q8H47M DAVID Rx#:[id number] Magnesium Sulfate-D5w Pmx 100 1 gm In Dextrose/Water 1 100ml.bag @ 100 mls/hr IVPB ONCE ONE Rx#: [id number] Norepinephrine 4 mg In 21.176 Sodium Chloride 0.9% 250 ml @ 0.03 MCG/KG/MIN 12. 961 mls/hr IV .[id number] DAVID Rx#:[id number] Piperacillin-Tazobactam 3 100 .375 gm In Sodium Chloride 0.9% 100 ml @ 25 mls/hr IVPB Q8H DAVID Rx#: [id number] Sodium Chloride 0.9% 1, 180 240 20 000 ml @ 20 mls/hr IV . Q24H DAVID Rx#:[id number] Sodium Chloride 0.9% 1, 50 000 ml In Empty Bag 1 bag @ 1 ML/KG/HR 113.398 mls /hr IV .Q8H50M DAVID Rx#: [id number] Sodium Chloride 0.9% 500 500 ml 500 ml @ 999 mls/hr IV .Q31M ONE Rx#:[id number] propofoL 1,000 mg In 118.617 Empty Bag 1 bag @ 15 MCG/ KG/MIN 10.206 mls/hr IV . Q9H48M [facility] Rx#:[id number] Oral 750 Tube Feeding 128 Other 60 Output: Urine 995 585 410 Other: Voiding Method Indwelling Catheter Indwelling Catheter Indwelling Catheter ABP, PAP, CO, CI - Last Documented Arterial Blood Pressure 149/64 - Labs CBC & Chem 7: 03/18/24 04:45 03/18/24 04:45 Labs: Abnormal Lab Results - Last 24 Hours (Table) 03/17/24 03/18/24 03/18/24 Range/Units 18:05 04:45 04:45 WBC 14.5 H (3.8-10.6) k/uL Neutrophils # 12.2 H (1.3-7.7) k/uL Chloride 109 H (98-107) mmol/L Creatinine 0.50 L (0.52-1.04) mg/dL Glucose 109 H (74-99) mg/dL POC Glucose (mg/dL) 119 H (70-110) mg/dL Microbiology - Last 24 Hours (Table) 03/16/24 09:18 Gram Stain - Final Sputum Sputum Culture - Final
[2024-03-18 20:54] LABS: Glucose,Whole Blood 109 mg/dL (70-110)
[2024-03-18] MEDS: METOPROLOL TARTRATE 50 MG TAB PO SCH (21:16)
--- NOTE | 2024-03-18 21:29 | P.EPCON ---
Electrophysiology Consult - EP Consult Electrophysiology Consult: This is Dr. Teran dictating a consult on this patient The patient was interviewed and examined IMPRESSION / ASSESSMENT: [id number] cardiac arrest. Patient was found to be in torsade. Successfully defibrillated with return of circulation Patient was on sotalol 80 mg twice daily as an outpatient for management of atrial fibrillation. First twelve-lead EKG in the hospital showed right bundle branch block left anterior fascicular block and an absolute QT interval of just under 400 ms Absence of hypokalemia upon admission, magnesium 1.8, treated with IV magnesium. Sotalol stopped Normal coronary arteries but with elevated LVEDP Normal LV function on 2D echo Twelve-lead EKG shows right bundle branch block pattern with a left anterior fascicular block, absolute QT interval of 400 ms, fluctuations in heart rate, prominent sinus arrhythmia Recently treated with amoxicillin for 10 days which does not interact with sotalol nor does it prolong the QT interval. Likely sotalol induced torsade PLAN: No further treatment with sotalol or any QT prolonging antiarrhythmic drug Avoid all QT prolonging drugs including drugs like quinolones, Zofran as an inpatient. Discussed with inpatient pharmacist Patient and family should be educated on avoiding the use of QT prolonging drugs both directly and indirectly. This information should be passed on to her outpatient pharmacy Stop IV amiodarone. Start metoprolol 50 mg twice daily and maximize steadily. I think tomorrow she should be able to tolerate 100 mg twice daily of metoprolol Add oral magnesium 400 mg p.o. daily of mag oxide Add spironolactone 25 mg p.o. daily for better blood pressure control along with lisinopril Continue Eliquis Avoid hypomagnesemia and hypokalemia Obtain all cardiac data from Dr. Joel's office and all EKGs performed in the office as well as all monitor strips off and on sotalol No indication for ICD implant. May consider LifeVest temporarily until further workup as an outpatient is complete HPI 68-year-old female with syncope and unresponsiveness. When EMS arrived patient was apparently in ventricular fibrillation and she was shocked. CPR was continued. She was in PEA. Given epinephrine and intubated with return of pulse at home medications included Eliquis, sotalol 80 mg twice daily, lisinopril. Patient was recently on antibiotics for a dental infection First twelve-lead EKG shows right bundle branch block left anterior fascicular block, sinus mechanism 2D echo shows left ventricular ejection fraction of 50-55% with mild RV enlargement and moderately increased left atrial volume Coronary angiography and cardiac catheterization revealed LVEDP of 28 mmHg Mild LAD disease Prehospital EMS data reviewed. ECG strips reviewed. Rhythm consistent with torsade noted prior to successful defibrillation ROS: No fever chills or rigors, no cough, phlegm or expectoration, no nausea, vomiting or diarrhea, no hematuria, dysuria, no musculoskeletal complaints, no strokes or seizures, no skin lesions. EXAMINATION: Resting comfortably in bed. Alert oriented, mild memory loss of recent events but when prompted does remember Heart sounds tachycardic, heart rates elevated to 130/min Lungs, reduced breath sounds bilaterally Elevated heart rates Elevated blood pressure REVIEW OF LABS, ECG & MEDICAL DATA Hemoglobin A1c 6.4 Magnesium 1.8 mildly abnormal troponin post shock First potassium of 5.1 EMS data reviewed. Rhythm consistent with torsade noted prior to defibrillation
--- NOTE | 2024-03-18 21:37 | US ---
EXAMINATION TYPE: US carotid duplex BILAT DATE OF EXAM: 03/18/2024 COMPARISON: NONE CLINICAL INDICATION: Female, 68 years old with history of Cardiac arrest; cardiac arrest TECHNIQUE: Grayscale, color Doppler and spectral Doppler evaluation of the bilateral carotid systems and vertebral arteries.Indirect Doppler criteria was utilized. 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 No significant stenosis seen IMPRESSION: Atheromatous plaquing. Some minimal velocity elevation in the left internal carotid artery suggests t his could be within the 50% range and are related to tortuosity. Criteria for Assigning % of Stenosis / Diameter reduction (Estimation based on the indirect measurements of the internal carotid artery velocities (ICA PSV). 1. Normal (no stenosis)=ICA PSV < 125 cm/s: ratio < 2.0: ICA EDV<40 cm/s. 2. Less than 50% stenosis=ICA PSV < 125 cm/s: ratio < 2.0: ICA EDV<40 cm/s. 3. 50 to 69% stenosis=ICA PSV of 125 to 230 cm/s: ration 2.0 ? 4.0: ICA EDV 40-100 cm/s. 4. Greater than 70% stenosis to near occlusion= ICA PSV > 230 cm/s: ratio > 4.0: ICA EDV > 100 cm/s. 5. Near occlusion= ICA PSV velocities may be low or undetectable: variable ratio and ICA EDV. 6. Total occlusion=unable to detect flow. [facility], Workstation: [facility], 03/18/2024 9:34 PM
--- NOTE | 2024-03-18 23:04 | P.CNNES ---
History of Present Illness Consult date: 03/18/24 Requesting physician: Reshma Torres Reason for Consult: Altered mental status History of Present Illness: Patient is a 68-year-old right-handed female with history of hypertension, was brought to the hospital by ambulance 2 days ago, 03/16/2024 at 8:43 AM for a witnessed cardiac arrest at home. Patient states that she was going into laundry room and she passed out without any warning. Patient woke up in the [facility]. On reviewing EMS flowsheet, it appears EMS were activated at 7:41 AM and they arrived at the scene at 7:45 AM. Patient was in cardiac arrest, CPR in progress. Patient was found laying supine on the floor next to her side/back door of the residence. Patient was cyanotic and mottled. Agonal breathing with a rate of 3/min. Blood was found inside of the patient's mouth by FD. Patient's [id number]-ite was at the scene, who said patient had been watching her grandson wait for the schoolbus at the door. [id number]-cx-chf states that she was in another room when she heard a loud noise and found the patient laying on the ground with her head next to the door frame/wall. Ruqfozfk-ui-owk could not wake the patient up and found the patient not to be breathing. She called 911 immediately. And started CPR. Patient had not complained of anything prior to her collapse. Initial rhythm was noted to be V-fib. Patient was defibrillated and CPR was resumed. ROSC was obtained and the initial rhythm was sinus rhythm in the 60s. Patient observed taking occasional breaths. During transport patient began to try and take rapid inhale shallow breaths and swung out with her arms and dislodge the Air-Q. Patient started taking deep breaths at around 22/min. Time of first CPR was 7:41 AM and ROSC was at 8:03 AM. Downtime 22 minutes as per EMS flowsheet. Patient's chest x-ray was suggestive of CHF. EKG showed sinus tachycardia. CT chest revealed suspected sequela of cardiac arrest with posterior airspace opacities of, correlate for pneumonia versus aspiration. Cardiomegaly with p ulmonary edema, correlate for CHF, bilateral rib fractures likely secondary to CPR. No PE. CT head showed age-related atrophic and chronic small vessel ischemic disease. CT of the cervical spine showed no fracture or subluxation. Patient was intubated in the ER. Patient's blood pressure came down, she was given fluid bolus and then started on Levophed by Dr. Loera. Patient did have slightly elevated troponin and elevated white count. Patient was taken to cardiac [employer]. She was found to have relatively normal coronary arteries with only mild luminal irregularities of the LAD and RCA. Patient was extubated yesterday at 1:23 PM. Patient has history of hypertension, denies diabetes. Does not drink alcohol. Patient was a light smoker, quit in 2008. Patient denies any history of seizures. Never had any history of cardiac arrest. Patient does take Eliquis 5 mg twice daily, lisinopril and sotalol 80 mg twice daily. Review of Systems Patient complaining of chest pain from recent CPR. She had broken ribs. Patient has some shortness of breath. Denies any headache. No double vision loss of vision. All other pertinent positive and negatives mentioned in HPI. Otherwise unremarkable. Past Medical History Past Medical History: Atrial Fibrillation, Hypertension History of Any Multi-Drug Resistant Organisms: None Reported Past Psychological History: No Psychological Hx Reported Smoking Status: Never smoker Medications and Allergies Home Medications Medication Instructions Recorded Confirmed Type Apixaban [Eliquis] 5 mg PO BID 03/16/24 03/16/24 History Sotalol [Betapace] 80 mg PO BID 03/16/24 03/16/24 History lisinopriL [Zestril] 5 mg PO DAILY 03/16/24 03/16/24 History Allergies Allergy/AdvReac Type Severity Reaction Status Date / Time sotalol Allergy Severe Rapid Verified 03/18/24 21:09 Heart Rate Physical Examination - Vital Signs Vital Signs: Vital Signs Temp Pulse Resp BP Pulse Ox 03/18/24 18:00 90 24 98 03/18/24 17:45 91 26 H 98 03/18/24 17:30 93 12 98 03/18/24 17:15 93 25 H 97 03/18/24 17:00 93 12 97 03/18/24 16:45 92 25 H 98 03/18/24 16:30 128 H 19 98 03/18/24 16:15 91 25 H 98 03/18/24 16:00 99.1 F 95 23 98 03/18/24 15:45 129 H 23 97 03/18/24 15:30 126 H 28 H 97 03/18/24 15:15 96 22 97 03/18/24 15:00 129 H 18 96 03/18/24 14:45 98 11 L 97 03/18/24 14:30 98 30 H 97 03/18/24 14:15 95 20 97 03/18/24 14:00 98 27 H 96 03/18/24 13:45 98 26 H 96 03/18/24 13:30 98 21 97 03/18/24 13:15 96 20 97 03/18/24 13:00 98 24 97 03/18/24 12:45 101 H 29 H 97 03/18/24 12:30 101 H 28 H 98 03/18/24 12:15 105 H 30 H 97 03/18/24 12:00 99.1 F 105 H 18 98 03/18/24 11:45 105 H 25 H 97 03/18/24 11:30 99 19 97 03/18/24 11:15 101 H 20 97 03/18/24 11:00 141 H 29 H 96 03/18/24 10:45 102 H 26 H 97 03/18/24 10:30 140 H 19 96 03/18/24 10:15 138 H 21 97 03/18/24 10:00 140 H 19 97 03/18/24 09:45 104 H 21 97 03/18/24 09:30 103 H 18 96 03/18/24 09:15 107 H 32 H 96 03/18/24 09:00 109 H 22 97 03/18/24 08:45 105 H 24 97 03/18/24 08:30 105 H 20 98 03/18/24 08:15 100 18 98 03/18/24 08:00 100.9 F H 105 H 26 H 97 03/18/24 07:00 101 H 19 96 03/18/24 06:45 64 18 97 03/18/24 06:30 92 18 97 03/18/24 06:15 135 H 16 97 03/18/24 06:00 90 17 97 03/18/24 05:45 113 H 15 97 03/18/24 05:30 89 16 97 03/18/24 05:15 140 H 16 97 03/18/24 05:00 58 L 20 97 03/18/24 04:45 70 20 97 03/18/24 04:30 73 15 96 03/18/24 04:15 99.2 F 137 H 17 97 03/18/24 04:00 138 H 18 96 03/18/24 03:45 141 H 18 96 03/18/24 03:30 133 H 18 160/84 96 03/18/24 03:15 128 H 20 96 03/18/24 03:00 88 19 97 03/18/24 02:45 71 291 H 97 03/18/24 02:30 50 L 17 97 03/18/24 02:15 47 L 18 97 03/18/24 02:00 89 20 96 03/18/24 01:45 87 20 97 03/18/24 01:30 57 L 20 97 03/18/24 01:15 121 H 16 96 03/18/24 01:00 84 24 97 03/18/24 00:45 68 20 97 03/18/24 00:30 81 19 97 03/18/24 00:15 131 H 18 96 03/18/24 00:00 130 H 18 162/88 96 03/17/24 23:45 133 H 20 97 03/17/24 23:30 56 L 19 97 03/17/24 23:15 57 L 26 H 97 03/17/24 23:00 59 L 27 H 97 03/17/24 22:45 48 L 15 97 03/17/24 22:30 48 L 14 98 03/17/24 22:15 125 H 18 96 03/17/24 22:00 77 18 97 03/17/24 21:45 70 16 97 03/17/24 21:30 78 28 H 97 03/17/24 21:15 124 H 48 H 97 03/17/24 21:08 48 L 20 97 03/17/24 21:00 128 H 16 97 03/17/24 20:45 126 H 16 96 03/17/24 20:30 93 16 97 03/17/24 20:15 47 L 18 98 03/17/24 20:00 98.5 F 126 H 16 98 03/17/24 19:45 87 16 97 03/17/24 19:30 45 L 18 98 03/17/24 19:15 52 L 18 97 03/17/24 19:00 125 H 25 H 97 Intake and Output 03/18/24 03/18/24 03/18/24 06:59 14:59 22:59 Intake Total 160 1410 480 Output Total 405 355 115 Balance -245 1055 365 Intake: IV 140 80 Sodium Chloride 0.9% 1, 140 80 000 ml @ 20 mls/hr IV . Q24H [facility] Rx#:[id number] Intake, IV Titration 160 720 Amount Magnesium Sulfate-D5w Pmx 100 1 gm In Dextrose/Water 1 100ml.bag @ 100 mls/hr IVPB ONCE ONE Rx#: [id number] Piperacillin-Tazobactam 3 100 .375 gm In Sodium Chloride 0.9% 100 ml @ 25 mls/hr IVPB Q8H [facility] Rx#: [id number] Sodium Chloride 0.9% 1, 160 20 000 ml @ 20 mls/hr IV . Q24H [facility] Rx#:[id number] Sodium Chloride 0.9% 500 500 ml 500 ml @ 999 mls/hr IV .Q31M [facility] Rx#:[id number] Oral 550 400 Output: Urine 405 355 115 Other: Voiding Method Indwelling Catheter Indwelling Catheter Indwelling Catheter Weight 110.858 kg ABP, PAP, CO, CI - Last 8 Hours Arterial Blood Pressure 112/52 Arterial Blood Pressure 113/59 Arterial Blood Pressure 104/50 Arterial Blood Pressure 109/52 Arterial Blood Pressure 130/58 Arterial Blood Pressure 137/63 Arterial Blood Pressure 150/71 Arterial Blood Pressure 149/64 Arterial Blood Pressure 151/64 Arterial Blood Pressure 182/79 Arterial Blood Pressure 183/73 Arterial Blood Pressure 183/71 Arterial Blood Pressure 154/74 Arterial Blood Pressure 145/62 Arterial Blood Pressure 158/62 Arterial Blood Pressure 152/59 Arterial Blood Pressure 162/63 Arterial Blood Pressure 161/63 Arterial Blood Pressure 167/64 Arterial Blood Pressure 150/58 Arterial Blood Pressure 155/61 Arterial Blood Pressure 149/59 Arterial Blood Pressure 146/57 Arterial Blood Pressure 150/55 Arterial Blood Pressure 153/57 Arterial Blood Pressure 189/75 Arterial Blood Pressure 147/56 Arterial Blood Pressure 154/59 Arterial Blood Pressure 158/62 Patient is an elderly female, in no acute distress. Patient is alert awake fairly well oriented to time place and person. Patient states it is April 2024. I informed her that she is close, then she said it is March. She knows that she is in a hospital in [place] in [place]. She states current president is "Blaynenm". She believes it is a fall season. 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 She has 2 children, one . Speech and language functions are normal. Patient can name and repeat very well. No aphasia or dysarthria. Attention, concentration and fund of knowledge is slightly limited as above. On cranial nerve examination, pupils are equal, round and reacting to light, visual cintron are full on confrontation, with no neglect on double simultaneous stimulation. Extraocular muscles are intact with no nystagmus. Face is symmetric, tongue protrudes to the midline. Palatal elevation and sensation normal, hearing and shoulder shrug normal, facial sensation normal. On muscle strength testing, there is no pronator drift. Patient has mild myoclonic jerking of outstretched hands. Her muscle strength in the arms is normal, but shoulders were not checked in detail because of pain and rib fractures. Dorsiflexion, and hip flexion appears normal bilaterally. Deep tendon reflexes are symmetric but diminished and plantars are equivocal. Sensory to touch is equal with no neglect on double simultaneous stimulation. Cerebellar function showed no ataxia for [id number]-[id number] testing. Patient's legs are somewhat stiff, cannot be checked for prhs-eh-jcot testing on either side. Tone and bulk of muscles normal. Gait deferred.. On general examination, there is no carotid bruit or murmur, S1-S2 audible. Chest is clear on consultation. No rhonchi or rales. Abdomen is soft nontender. No organomegaly, bowel sounds present. Peripheral pulses are diminished. Patient has poor hygiene of her feet. Very prolonged toenails. Results - Laboratory Findings CBC and BMP: 03/18/24 04:45 03/18/24 04:45 Abnormal Lab Findings: Abnormal Labs 03/16/24 03/16/24 03/16/24 09:08 09:08 09:08 WBC 18.3 H Neutrophils # 15.6 H ABG pH ABG pO2 ABG HCO3 ABG Total CO2 ABG O2 Saturation Chloride Carbon Dioxide 20 L Creatinine Glucose 244 H POC Glucose (mg/dL) Hemoglobin A1c AST 94 H ALT 44 H Troponin I 0.079 H* Total Protein Albumin 03/16/24 03/16/24 03/16/24 09:17 11:43 13:40 WBC Neutrophils # ABG pH ABG pO2 >420 H ABG HCO3 ABG Total CO2 25 H ABG O2 Saturation 100.0 H Chloride Carbon Dioxide Creatinine Glucose POC Glucose (mg/dL) 234 H 160 H Hemoglobin A1c AST ALT Troponin I Total Protein Albumin 03/16/24 03/16/24 03/16/24 16:25 19:57 23:38 WBC Neutrophils # ABG pH ABG pO2 ABG HCO3 ABG Total CO2 ABG O2 Saturation Chloride Carbon Dioxide Creatinine Glucose POC Glucose (mg/dL) 118 H 132 H 125 H Hemoglobin A1c AST ALT Troponin I Total Protein Albumin 03/17/24 03/17/24 03/17/24 04:34 04:35 04:35 WBC 16.1 H Neutrophils # 13.6 H ABG pH ABG pO2 ABG HCO3 ABG Total CO2 ABG O2 Saturation Chloride Carbon Dioxide Creatinine Glucose POC Glucose (mg/dL) 133 H Hemoglobin A1c 6.4 H AST ALT Troponin I Total Protein Albumin 03/17/24 03/17/24 03/17/24 04:35 05:10 13:10 WBC Neutrophils # ABG pH 7.46 H ABG pO2 133 H 130 H ABG HCO3 27 H ABG Total CO2 26 H 29 H ABG O2 Saturation 99.4 H 99.3 H Chloride 111 H Carbon Dioxide Creatinine Glucose 127 H POC Glucose (mg/dL) Hemoglobin A1c AST 40 H ALT Troponin I Total Protein 5.6 L Albumin 3.2 L 03/17/24 03/18/24 03/18/24 18:05 04:45 04:45 WBC 14.5 H Neutrophils # 12.2 H ABG pH ABG pO2 ABG HCO3 ABG Total CO2 ABG O2 Saturation Chloride 109 H Carbon Dioxide Creatinine 0.50 L Glucose 109 H POC Glucose (mg/dL) 119 H Hemoglobin A1c AST ALT Troponin I Total Protein Albumin Assessment and Plan Assessment: * Status post [id number], witnessed V-fib cardiac arrest. Patient had prolonged downtime of 22 minutes, but patient has recovered extremely well. Patient has been extubated, fully alert and awake, fairly well-oriented and relatively nonfocal examination. * Metabolic encephalopathy, likely due to above, improving. * Elevated troponins * History of atrial fibrillation, on anticoagulation * Status post extubation 03/17/2024 * Possible aspiration pneumonia * Hypertension Plan: * Patient's mental status appears fairly intact. Neurologic examination is grossly nonfocal. * Patient is being followed up with assistant infant toddler teacher and electrophysiology team. * From neurology standpoint, we will check EEG and a carotid Doppler. * Continue Eliquis 5 mg twice daily for atrial fibrillation. * Patient on Zosyn for possible aspiration pneumonia. * Other management as per IM and other specialties on board. * PT OT * Hemoglobin A1c 6.4. * Neurology will follow. Thank you for the consult. Time with Patient: Greater than 30
[2024-03-19 05:22] LABS: Basophils % (A) 0 %; Eosinophils # (A) 0.1 k/uL (0-0.7); Eosinophils % (A) 1 %; HCT 33.7 % (34.0-46.0); HGB 11.2 gm/dL (11.4-16.0); Lymphocytes # (A) 1.8 k/uL (1.0-4.8); Lymphocytes % (A) 14 %; MCHC 33.2 g/dL (31.0-37.0); MCV 93.4 fL (80.0-100.0); Mean Platelet Volume 8.5; Monocytes # (A) 0.8 k/uL (0-1.0); Monocytes % (A) 6 %; Neutrophils # (A) 9.9 k/uL (1.3-7.7); Neutrophils % (A) 78 %; Platelet Count 304 k/uL (150-450); RBC 3.61 m/uL (3.80-5.40); RDW 13.7 % (11.5-15.5); WBC 12.7 k/uL (3.8-10.6)
[2024-03-19 06:16] LABS: African American GFR (CKD) >90 (>60 ml/min/1.73 sqM); Anion Gap 4 mmol/L; Blood Urea Nitrogen 16 mg/dL (7-17); Calcium 8.3 mg/dL (8.4-10.2); Carbon Dioxide 28 mmol/L (22-30); Chloride 105 mmol/L (98-107); Glucose 105 mg/dL (74-99); Magnesium 1.9 mg/dL (1.6-2.3); Non-African American GFR(CKD) >90 (>60 ml/min/1.73 sqM); Potassium 3.7 mmol/L (3.5-5.1); Sodium 137 mmol/L (137-145)
[2024-03-19] MEDS ORDERED: POTASSIUM CHLORIDE ER 20 MEQ TAB.ER PO STA (06:21)
[2024-03-19 06:51] LABS: Glucose,Whole Blood 133 mg/dL (70-110)
[2024-03-19] MEDS: MAGNESIUM SULFATE-D5W PMX 1 GM in DEXTROSE/WATER 1 100ML.BAG IVPB ONE (06:55)
--- NOTE | 2024-03-19 08:19 | P.CONS ---
History of Present Illness - Reason for Consult Consult date: 03/18/24 Aspiration Requesting physician: Danyelle Rabago - Chief Complaint Passed out x 2 days - History of Present Illness Patient is a 68-year-old female with a past medical history significant for hypertension atrial fibrillation, patient was brought into the hospital 2 days ago after apparently the patient did have cardiac arrest at home and the patient was found to be unresponsive and no pulse and was not breathing CPR was started by the daughter EMS was called and on arrival to the emergency patient was noticed to be in A-fib patient was shocked x 1 CPR was continued patient got intubated on the scene and subsequently patient has been brought into the hospital patient on arrival to the ER was afebrile she did have a low- grade fever of 100 F yesterday morning and a fever of 100.9 F this morning that has probably this consultation concerning for possible aspiration pneumonia patient apparently was on Zosyn initially that was discontinued because of concern for QT prolongation, patient was successfully extubated as of yesterday afternoon patient is currently breathing comfortably on 2 L nasal cannula oxygen patient denies having any headache or URI symptoms no chest pain or shortness of breath minimal cough no nausea vomiting no abdominal pain and no diarrhea patient did have white count of 18.3 on admission current white count is 14.5 with a left shift creatinine has been normal electrolytes are normal liver isms are mildly elevated trending down did have a chest x-ray left lower lobe atelectasis or pneumonia CT of the chest did show there was evidence of pneumonia Review of Systems Positive point and negatives has been mentioned in the HPI, complete review of systems was performed and all other systems are negative Past Medical History Past Medical History: Atrial Fibrillation, Hypertension History of Any Multi-Drug Resistant Organisms: None Reported Past Psychological History: No Psychological Hx Reported Smoking Status: Never smoker Medications and Allergies Home Medications Medication Instructions Recorded Confirmed Type Apixaban [Eliquis] 5 mg PO BID 03/16/24 03/16/24 History Acetaminophen Tab [Tylenol] 650 mg PO Q6HR PRN tab 03/21/24 Rx Metoprolol Tartrate [Lopressor] 50 mg PO BID #60 tab 03/21/24 Rx Nitroglycerin Sl Tabs [Nitrostat] 0.4 mg SUBLINGUAL Q5M PRN #15 tab 03/21/24 Rx lisinopriL [Zestril] 10 mg PO DAILY #30 tab 10/08/24 Rx Allergies Allergy/AdvReac Type Severity Reaction Status Date / Time sotalol Allergy Severe Rapid Verified 03/18/24 21:09 Heart Rate Physical Exam Vitals: Vital Signs Temp Pulse Resp BP Pulse Ox FiO2 03/18/24 11:00 141 H 29 H 96 03/18/24 10:45 102 H 26 H 97 03/18/24 10:30 140 H 19 96 03/18/24 10:15 138 H 21 97 03/18/24 10:00 140 H 19 97 03/18/24 09:45 104 H 21 97 03/18/24 09:30 103 H 18 96 03/18/24 09:15 107 H 32 H 96 03/18/24 09:00 109 H 22 97 03/18/24 08:45 105 H 24 97 03/18/24 08:30 105 H 20 98 03/18/24 08:15 100 18 98 03/18/24 08:00 110.9 F H 105 H 26 H 97 03/18/24 07:00 101 H 19 96 03/18/24 06:45 64 18 97 03/18/24 06:30 92 18 97 03/18/24 06:15 135 H 16 97 03/18/24 06:00 90 17 97 03/18/24 05:45 113 H 15 97 03/18/24 05:30 89 16 97 03/18/24 05:15 140 H 16 97 03/18/24 05:00 58 L 20 97 03/18/24 04:45 70 20 97 03/18/24 04:30 73 15 96 03/18/24 04:15 99.2 F 137 H 17 97 03/18/24 04:00 138 H 18 96 03/18/24 03:45 141 H 18 96 03/18/24 03:30 133 H 18 160/84 96 03/18/24 03:15 128 H 20 96 03/18/24 03:00 88 19 97 03/18/24 02:45 71 291 H 97 03/18/24 02:30 50 L 17 97 03/18/24 02:15 47 L 18 97 03/18/24 02:00 89 20 96 03/18/24 01:45 87 20 97 03/18/24 01:30 57 L 20 97 03/18/24 01:15 121 H 16 96 03/18/24 01:00 84 24 97 03/18/24 00:45 68 20 97 03/18/24 00:30 81 19 97 03/18/24 00:15 131 H 18 96 03/18/24 00:00 130 H 18 162/88 96 03/17/24 23:45 133 H 20 97 03/17/24 23:30 56 L 19 97 03/17/24 23:15 57 L 26 H 97 03/17/24 23:00 59 L 27 H 97 03/17/24 22:45 48 L 15 97 03/17/24 22:30 48 L 14 98 03/17/24 22:15 125 H 18 96 03/17/24 22:00 77 18 97 03/17/24 21:45 70 16 97 03/17/24 21:30 78 28 H 97 03/17/24 21:15 124 H 48 H 97 03/17/24 21:08 48 L 20 97 03/17/24 21:00 128 H 16 97 03/17/24 20:45 126 H 16 96 03/17/24 20:30 93 16 97 03/17/24 20:15 47 L 18 98 03/17/24 20:00 98.5 F 126 H 16 98 03/17/24 19:45 87 16 97 03/17/24 19:30 45 L 18 98 03/17/24 19:15 52 L 18 97 03/17/24 19:00 125 H 25 H 97 03/17/24 18:45 63 27 H 98 03/17/24 18:30 84 18 97 03/17/24 18:15 123 H 19 97 03/17/24 18:00 43 L 23 97 03/17/24 17:45 117 H 26 H 97 03/17/24 17:30 45 L 12 98 03/17/24 17:15 42 L 22 97 03/17/24 17:00 116 H 16 96 03/17/24 16:45 120 H 21 98 03/17/24 16:30 58 L 22 98 03/17/24 16:15 118 H 12 97 03/17/24 16:00 81 19 97 03/17/24 15:45 78 15 98 03/17/24 15:30 109 H 20 100 03/17/24 15:15 76 22 99 03/17/24 15:00 52 L 17 100 03/17/24 14:45 66 14 99 03/17/24 14:30 75 22 99 03/17/24 14:15 112 H 20 99 03/17/24 14:00 91 19 100 03/17/24 13:45 93 15 99 03/17/24 13:30 93 20 99 03/17/24 13:15 74 17 100 03/17/24 13:00 76 15 100 03/17/24 12:45 71 14 99 03/17/24 12:38 35 03/17/24 12:30 75 16 108/52 100 03/17/24 12:15 65 16 108/52 99 03/17/24 12:00 99.1 F 73 20 97 35 Intake and Output 03/17/24 03/18/24 03/18/24 22:59 06:59 14:59 Intake Total 168.5 160 450 Output Total 555 405 295 Balance -386.5 -245 155 Intake: IV 80 Sodium Chloride 0.9% 1, 80 000 ml @ 20 mls/hr IV . Q24H [facility] Rx#:[id number] Intake, IV Titration 168.5 160 120 Amount DOBUTamine DRIP 500 mg In 8.5 Dextrose/Water 1 250ml. bag @ 2.5 MCG/KG/MIN 8.55 mls/hr IV .Q24H [facility] Rx#: [id number] Magnesium Sulfate-D5w Pmx 100 1 gm In Dextrose/Water 1 100ml.bag @ 100 mls/hr IVPB ONCE ONE Rx#: [id number] Sodium Chloride 0.9% 1, 160 160 20 000 ml @ 20 mls/hr IV . Q24H [facility] Rx#:[id number] Oral 250 Output: Urine 555 405 295 Other: Voiding Method Indwelling Catheter Indwelling Catheter Weight 110.858 kg ABP, PAP, CO, CI - Last 8 Hours Arterial Blood Pressure 158/62 Arterial Blood Pressure 155/60 Arterial Blood Pressure 142/55 Arterial Blood Pressure 140/56 Arterial Blood Pressure 141/57 Arterial Blood Pressure 151/56 Arterial Blood Pressure 166/60 Arterial Blood Pressure 193/71 Arterial Blood Pressure 188/67 Arterial Blood Pressure 184/65 Arterial Blood Pressure 165/59 Arterial Blood Pressure 133/49 Arterial Blood Pressure 121/46 Arterial Blood Pressure 187/77 Arterial Blood Pressure 158/58 Arterial Blood Pressure 180/67 Arterial Blood Pressure 155/64 Arterial Blood Pressure 159/59 Arterial Blood Pressure 170/64 Arterial Blood Pressure 159/62 Arterial Blood Pressure 178/76 Arterial Blood Pressure 146/48 Arterial Blood Pressure 149/55 Arterial Blood Pressure 175/69 Arterial Blood Pressure 180/76 GENERAL DESCRIPTION: Elderly female lying in bed, no distress. No tachypnea or accessory muscle of respiration use. HEENT: Shows Pallor , no scleral icterus. Oral mucous membrane is dry. No pharyngeal erythema or thrush NECK: Trachea central, no thyromegaly. LUNGS: Unlabored breathing. Decreased breath sound at the base no wheeze or crackle. HEART: S1, S2, regular rate and rhythm. No loud murmur ABDOMEN: Soft, no tenderness , guarding or rigidity, no organomegaly EXTREMITIES: No edema of feet. SKIN: No rash, no masses palpable. NEUROLOGICAL: The patient is awake, alert, oriented x3, mood and affect normal. Results CBC & Chem 7: 03/21/24 05:29 03/21/24 05:29 Labs: Abnormal Lab Results - Last 24 Hours (Table) 03/17/24 03/17/24 03/18/24 Range/Units 13:10 18:05 04:45 WBC (3.8-10.6) k/uL Neutrophils # (1.3-7.7) k/uL ABG pO2 130 H (83-108) mmHg ABG HCO3 27 H (21-25) mmol/L ABG Total CO2 29 H (19-24) mmol/L ABG O2 Saturation 99.3 H (94-97) % Chloride 109 H (98-107) mmol/L Creatinine 0.50 L (0.52-1.04) mg/dL Glucose 109 H (74-99) mg/dL POC Glucose (mg/dL) 119 H (70-110) mg/dL 03/18/24 Range/Units 04:45 WBC 14.5 H (3.8-10.6) k/uL Neutrophils # 12.2 H (1.3-7.7) k/uL ABG pO2 (83-108) mmHg ABG HCO3 (21-25) mmol/L ABG Total CO2 (19-24) mmol/L ABG O2 Saturation (94-97) % Chloride (98-107) mmol/L Creatinine (0.52-1.04) mg/dL Glucose (74-99) mg/dL POC Glucose (mg/dL) (70-110) mg/dL Microbiology - Last 24 Hours (Table) 03/16/24 09:18 Gram Stain - Final Sputum Sputum Culture - Final Assessment and Plan (1) Aspiration pneumonia Status: Acute Code(s): J69.0 - PNEUMONITIS DUE TO INHALATION OF FOOD AND VOMIT SNOMED Code(s): 218587451 (2) Leukocytosis Status: Acute Code(s): D72.829 - ELEVATED WHITE BLOOD CELL COUNT, UNSPECIFIED SNOMED Code(s): 385907926 Plan: 1patient presented to the hospital with a cardiac arrest at home has been resuscitated intubated on the scene subsequently has been extubated patient now having a low-grade fever did have elevated white count CT on admission did shows a left lower lobe consolidation/aspiration and likely concerning for aspiration pneumonia. 2keeping in mind no fever we will check blood cultures procalcitonin and repeat a sputum for Gram stain culture. 3we will start the patient on Zosyn 3.375 g every 8 hours which does not cause any QT prolongation. We will follow on clinical condition and cultures to further adjust medication if needed Thank you for this consultation we will follow the patient along with you Dictation was produced using [employer] dictation software. please excuse any grammatical, word or spelling errors. Time with Patient: Greater than 30
[2024-03-19] MEDS: MAGNESIUM OXIDE 400 MG TAB PO SCH (08:58)
[2024-03-19] MEDS: lisinopriL 10 MG TAB PO SCH (08:58)
[2024-03-19] MEDS ORDERED: SPIRONOLACTONE 25 MG TAB PO SCH (09:00)
--- NOTE | 2024-03-19 09:24 | P.PN ---
Subjective Progress Note Date: 03/19/24 No new complaints today. HRs better controlled on metoprolol (amiodarone was discontinued per electrophysiology consult) General: intubated, HEENT: normocephalic, atraumatic, no tracheal deviation Respiratory: symmetric chest rise, no cyanosis, ventilator dependent CVS: perfusing all extremities, no distal gangrene, no pitting edema GI: soft, ND : no SPT, no CVAT, mccoy is present Neuro: Following commands Hospital course: Patient is a 68-year-old female with history of hypertension, atrial f ibrillation on Eliquis had an outside [id number] cardiac arrest. Patient's temperature was 97.6, pulse 100, respiratory rate 24, blood pressure 183/109 saturating at 97% with mechanical ventilation. Chest x-ray independently interpreted, showed bilateral interstitial opacities. Chest CTA did not show any PE, bilateral rib fractures secondary to CPR, possible aspiration versus pneumonia, pulmonary edema. Head and neck CT did not show any acute fractures, otherwise no acute process. Patient was started on EKG showed sinus arrhythmia, fascicular block, no significant ST or T wave changes. Patient was evaluated by cardiology and pulmonology. She was taken directly to cardiac cath, and then transferred to medical ICU. -Reportedly, left heart cath showed no significant coronary artery disease Assessment/Plan: Active: [id number] V-fib cardiac arrest Acute encephalopathy, likely metabolic Elevated troponin Leukocytosis Shock, likely cardiogenic versus medication induced Paroxysmal A Fib with RVR Suspected aspiration pneumonia -Pulmonology consulted, appreciate recommendations -Cardiology consulted, appreciate recommendations -Patient on Eliquis -Continue metoprolol, EP recommending adding spironolactone, defer to them on timing of initiation - Hyperglycemia, likely reactive -A1c 6.4 -Sliding scale insulin, every 4 hours as needed, monitor for hypoglycemia Intertrigo -Nystatin powder The patient is admitted with an anticipated greater than 2 midnight stay as inpatient status for evaluation of cardiac arrest. Surrogate decision-maker: Son CODE STATUS: Full code DVT prophylaxis: heparin Anticipated discharge date: Pending clinical course Anticipated discharge place: Pending clinical course Objective - Vital Signs Vital signs: Vital Signs Temp 98.8 F 03/18/24 20:00 Pulse 124 H 03/19/24 07:30 Resp 12 03/19/24 07:30 BP 103/52 03/19/24 07:30 Pulse Ox 96 03/19/24 07:30 FiO2 35 03/17/24 12:38 Intake & Output 03/18/24 03/19/24 03/19/24 18:59 06:59 18:59 Intake Total 1923 336 43 Output Total 470 410 60 Balance 1453 -74 -17 Weight 112.6 kg Intake: IV 253 336 43 Sodium Chloride 0.9% 1, 220 300 40 000 ml @ 20 mls/hr IV . Q24H [facility] Rx#:[id number] pressure bag 33 36 3 Intake, IV Titration 720 Amount Magnesium Sulfate-D5w Pmx 100 1 gm In Dextrose/Water 1 100ml.bag @ 100 mls/hr IVPB ONCE ONE Rx#: [id number] Piperacillin-Tazobactam 3 100 .375 gm In Sodium Chloride 0.9% 100 ml @ 25 mls/hr IVPB Q8H [facility] Rx#: [id number] Sodium Chloride 0.9% 1, 20 000 ml @ 20 mls/hr IV . Q24H [facility] Rx#:[id number] Sodium Chloride 0.9% 500 500 ml 500 ml @ 999 mls/hr IV .Q31M [facility] Rx#:[id number] Oral 950 Output: Urine 470 410 60 Other: Voiding Method Indwelling Catheter Indwelling Catheter ABP, PAP, CO, CI - Last Documented Arterial Blood Pressure 151/76 - Labs CBC & Chem 7: 03/19/24 04:35 03/19/24 04:35 Labs: Abnormal Lab Results - Last 24 Hours (Table) 03/19/24 03/19/24 03/19/24 Range/Units 04:35 04:35 06:50 WBC 12.7 H (3.8-10.6) k/uL RBC 3.61 L (3.80-5.40) m/uL Hgb 11.2 L (11.4-16.0) gm/dL Hct 33.7 L (34.0-46.0) % Neutrophils # 9.9 H (1.3-7.7) k/uL Glucose 105 H (74-99) mg/dL POC Glucose (mg/dL) 133 H (70-110) mg/dL Calcium 8.3 L (8.4-10.2) mg/dL Microbiology - Last 24 Hours (Table) 03/16/24 09:18 Gram Stain - Final Sputum Sputum Culture - Final
[2024-03-19] MEDS: MD COMMUNICATION TO PHARMACY 1 EACH MISC PO ONE (09:45)
[2024-03-19] MEDS: POTASSIUM CHLORIDE ER 20 MEQ TAB.ER PO SCH (09:48)
--- NOTE | 2024-03-19 10:53 | P.PN ---
Subjective Progress Note Date: 03/19/24 HISTORY OF PRESENT ILLNESS: This is a 68-year-old female with a past medical history significant for hyp ertension and paroxysmal atrial fibrillation. Patient follows with a seafood team member at [facility]. We have been asked to see the patient in consultation for cardiac arrest. Patient's family is present. Patient's family states that they heard a thump in the other room and when they went to see what happened they noticed the patient was on the floor. She was unresponsive. 911 was called and CPR was started. The patient was apparently in V-fib when EMS arrived. She did receive defibrillation along with epinephrine. Patient examined at the bedside in the emergency room. Patient remains intubated on mechanical ventilation. She is sedated with propofol. Patient's family denies any known history of CAD. Patient's blood pressure at the time of examination is low with a systolic in the 70s. Her propofol has been paused and she has been started on Levophed. Patient's family gives additional history that the patient was recently on antibiotics for a dental infection. DIAGNOSTICS: - EKG reveals sinus mechanism with a heart rate of 92. - Chest xray findings felt to reflect congestive failure. Infiltrates or other etiology not excluded. - Laboratory data: WBC 18.3. Hemoglobin 13.7. Platelet count 426. Sodium 139. Potassium 5.1. BUN 16. Creatinine 0.86. Magnesium 1.8. AST 94. ALT 44. Troponin 0.079. - Current home cardiac medications include lisinopril 5 mg daily, sotalol 80 mg twice a day, Eliquis 5 mg twice a day 03/17 Patient did have intermittent bradycardia was placed on dopamine. Left heart catheterization was performed with a mild luminal irregularities and elevated LVEDP. She remains on ventilator and opening eyes intermittently however not following obvious commands. Remaines on propofol. 03/18 patient seen and examined. Patient was extubated and currently denies any chest pain or pressure or shortness of breath.she has continued to have intermittent episodes of atrial flutter/ atrial tachycardia with additional sinus bradycardia with heart rates in the 40s. She states prior to this episode she did not really have any episodes of lightheadedness or dizziness and has not had a prior syncope. She denies any family history of sudden cardiac . She does follow with Dr. Joel in [facility]. She can usually not feel her A. fib or atrial flutter. Echo performed with EF 50-55%. EKG from 09/16 shows QTC 496 when in sinus rhythm at heart rate 63 bpm. 03/19 Patient is seen and examined in the intensive care unit. She has been succe ssfully extubated. Patient is stating that she is feeling better from yesterday. She does have mental status changes with confusion and followed by neurology. Yesterday, patient was on amiodarone at 1 mg drip and converted to sinus rhythm but when she dropped down to 0.5 mg her heart rate went up to the 120s and 130s and this occurred around 2:30 in the afternoon. Blood pressure was also fluctuating. She was seen by Dr. Teran and amiodarone was discontinued and patient started on beta-luis antonio with recommendations to increase this today. Patient was also started on Aldactone which she has not received yet. Blood pressure 103/52, heart rate is in the 120s, atrial flutter. Patient denies have any chest pain and no shortness of breath. Repeat blood work reveals WBC 12.7, hemoglobin 9.2. Electrolytes are normal, creatinine 0.65. PHYSICAL EXAM: VITAL SIGNS: Reviewed. GENERAL: Well-developed in no acute distress. HEENT: Head is normocephalic. Pupils are equal, round. Sclerae anicteric. Mucous membranes of the mouth are moist. Neck supple. No JVD or thyromegaly LUNGS: Respirations even and unlabored. Lungs essentially clear to auscultation bilaterally. HEART: Regular rate and rhythm. S1 and S2 heard. ABDOMEN: Soft. Nondistended. Nontender. EXTREMITIES: Normal range of motion. No clubbing or cyanosis. Peripheral pulses intact. No lower extremity edema NEUROLOGIC: Patient is awake and alert, confused ASSESSMENT: Ventricular fibrillation cardiac arrest, related to prolonged QT and Sotalol Prolonged QTc, measuring 470 on EKG performed in cath lab manager Rule out tachybradycardia syndrome Hypotension, after initiation of IV propofol, requiring vasopressor support History of hypertension Paroxysmal atrial fibrillation, on Eliquis outpatient Mild CAD Bradycardia, likely related to sedation PLAN: Hold sotalol Patient has been started on Lopressor 50 mg twice daily, no plan to increase this today Decrease lisinopril to 10 mg daily Monitor for sick sinus syndrome and tachybradycardia syndrome Electrophysiology recommendations appreciated Echo shows preserved EF Continue anticoagulation with Eliquis Patient still having intermittent episodes of bradycardia as well as tachycardia with what appears to be more atrial flutter/atrial tachycardia. Concern of long QT syndrome and will consider genetic testing. No prolonged QT at this time. Patient still somewhat confused and monitor neurologic progress. Nurse practitioner note has been reviewed, I agree with documented findings and plan of care. Patient was seen and examined. Objective - Vital Signs Vital signs: Vital Signs Temp 98.8 F 03/18/24 20:00 Pulse 124 H 03/19/24 07:30 Resp 12 03/19/24 07:30 BP 103/52 03/19/24 07:30 Pulse Ox 96 03/19/24 07:30 FiO2 35 03/17/24 12:38 Intake & Output 03/18/24 03/19/24 03/19/24 18:59 06:59 18:59 Intake Total 1923 336 43 Output Total 470 410 60 Balance 1453 -74 -17 Weight 112.6 kg Intake: IV 253 336 43 Sodium Chloride 0.9% 1, 220 300 40 000 ml @ 20 mls/hr IV . Q24H [facility] Rx#:[id number] pressure bag 33 36 3 Intake, IV Titration 720 Amount Magnesium Sulfate-D5w Pmx 100 1 gm In Dextrose/Water 1 100ml.bag @ 100 mls/hr IVPB ONCE ONE Rx#: [id number] Piperacillin-Tazobactam 3 100 .375 gm In Sodium Chloride 0.9% 100 ml @ 25 mls/hr IVPB Q8H [facility] Rx#: [id number] Sodium Chloride 0.9% 1, 20 000 ml @ 20 mls/hr IV . Q24H [facility] Rx#:[id number] Sodium Chloride 0.9% 500 500 ml 500 ml @ 999 mls/hr IV .Q31M [facility] Rx#:[id number] Oral 950 Output: Urine 470 410 60 Other: Voiding Method Indwelling Catheter Indwelling Catheter ABP, PAP, CO, CI - Last Documented Arterial Blood Pressure 151/76 - Labs CBC & Chem 7: 03/19/24 04:35 03/19/24 04:35 Labs: Abnormal Lab Results - Last 24 Hours (Table) 03/19/24 03/19/24 03/19/24 Range/Units 04:35 04:35 06:50 WBC 12.7 H (3.8-10.6) k/uL RBC 3.61 L (3.80-5.40) m/uL Hgb 11.2 L (11.4-16.0) gm/dL Hct 33.7 L (34.0-46.0) % Neutrophils # 9.9 H (1.3-7.7) k/uL Glucose 105 H (74-99) mg/dL POC Glucose (mg/dL) 133 H (70-110) mg/dL Calcium 8.3 L (8.4-10.2) mg/dL Microbiology - Last 24 Hours (Table) 03/16/24 09:18 Gram Stain - Final Sputum Sputum Culture - Final
[2024-03-19 11:19] LABS: Glucose,Whole Blood 123 mg/dL (70-110)
--- NOTE | 2024-03-19 12:06 | P.PN ---
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 Patient was brought into the ER by EMS, apparently the family heard a thump in the other room where they went to see what happened they noticed that the patient was on the floor. Patient was unresponsive, CPR was started by family members, 911 was called, upon arrival of EMS, patient was in V-fib, patient received further CPR, defibrillation, and she also received epinephrine by EMS. Brought into the emergency room intubated, patient was seen initially in the ER by myself, and I went ahead and placed a right femoral triple-lumen catheter for venous access/central access. Patient was extremely agitated, restless, unresponsive to any stimuli, quite obtunded, and her blood pressure was initially in the 70s systolic. Patient received Nimbex initially and then she her propofol was titrated, she is presently on propofol. Patient was placed on assist-control mode of mechanical ventilation, ABG now is pending. Patient was seen by cardiology and underwent cardiac catheterization and she was found to have nor mal coronaries. No significant findings according to the cardiology report. Patient was brought back to ICU after cardiac catheterization, and I saw her again in the ICU left radial arterial line was placed. Patient was noted to have intermittent episodes of bradycardia with hypotension, received 1 dose of atropine, 0.5 mg, and she responded well to atropine. With increase in the heart rate to the 80s, and blood pressure was noted to be 160 systolic with increased heart rate hence norepinephrine was being titrated and I recommended stopping norepinephrine at that point. Considered placing the patient on dopamine, but did not require to do so. According to the cardiology note, it was felt that her cardiac arrest may have been secondary to sotalol along with the recent antibiotic taken for dental infection causing prolonged QTc interval leading to ventricular fibrillation arrest. Patient was evaluated today on 03/17/2024, patient is still in ICU, intubated and mechanically ventilated. She is on assist-control rate of 18 tidal volume 450 FiO2 40% and PEEP of 5 ABG showed a pO2 of 133 pCO2 36 pH of 7.46 and straight was cut down to 16 and FiO2 Down to 35%. Patient remains on dopamine at 2.5 mcg/kg/min norepinephrine at 0.01 mcg/kg/min propofol at 30 mcg/kg/min and IV fluid at KVO. Chest x-ray showed minimal bibasilar atelectasis, slight prominence of the pulmonary vasculature, no clear-cut evidence of pneumonia. Hence Zosyn was discontinued, not to mention patient had normal procalcitonin level on admission and today WBC count is 16.1 hemoglobin is 11.7, basic metabol ic profile is normal renal profile is normal, procalcitonin is 0.38. No major issues overnight, patient remains on pressors, dopamine was added yesterday mostly because of her intermittent episodes of bradycardia with hypotension, today I plan to transition the patient from propofol to Precedex, and hopefully address weaning if possible. Will depend on her overall mental status during this transition. \ Was seen today on 03/18/2024, patient was extubated yesterday from mechanical ventilation, and she is now on nasal cannula. No major issues overnight, patient is on 2 L nasal cannula, however she is on amiodarone 1 mg/min as ordered by cardiology, blood pressure is elevated patient is requiring lisinopril and hydralazine. Her mental status is not perfect, patient seems to be confused had no idea where she was, she felt that she was in [facility], she also did not know the year and or the month did not know the name of the president. WBC count today is 14.5 hemoglobin is 12 electrolytes are normal renal profile is normal renal profile is normal chest x-ray today is sh owing evidence of left basilar atelectasis, possible pneumonia involving the left lower lobe with air bronchogram could be seen in the retrocardiac area. Considering the patient is having intermittent fevers, patient needs to go back on antibiotics. The choices are limited, but at this point I believe Zosyn would be a better choice for this patient considering that the patient may have also aspirated. Will ask infectious disease to evaluate specially with the choice of antibiotics being limited procalcitonin initially was normal infectious disease will see on consultation Patient was seen today on 03/19/2024, patient is doing much better today compared to yesterday, her confusion has resolved, patient is doing great overall. She was seen by Dr. sanchezfor her arrhythmia, he is recommending no further treatment with sotalol or any QT prolonging antiarrhythmic drug. He is also recommending stopping IV amiodarone and placing the patient on metoprolol 50 mg twice daily and titrate accordingly. Also recommending oral magnesium as well as Aldactone 25 mg daily along with lisinopril. In addition also recommending Eliquis. Patient remains in the ICU, doing fairly well, blood pressure remains a bit elevated, blood pressure medication is being adjusted. WBC count is 12.7 hemoglobin 11.2 electrolytes are normal renal profile is normal patient is 1.9 Objective - Vital Signs Vital signs: Vital Signs Temp 98.8 F 03/18/24 20:00 Pulse 76 03/19/24 11:00 Resp 18 03/19/24 11:00 BP 154/83 03/19/24 08:00 Pulse Ox 97 03/19/24 11:00 FiO2 35 03/17/24 12:38 Intake & Output 03/18/24 03/19/24 03/19/24 18:59 06:59 18:59 Intake Total 1923 336 285 Output Total 470 410 230 Balance 1453 -74 55 Weight 112.6 kg Intake: IV 253 336 135 Sodium Chloride 0.9% 1, 220 300 120 000 ml @ 20 mls/hr IV . Q24H [facility] Rx#:[id number] pressure bag 33 36 15 Intake, IV Titration 720 Amount Magnesium Sulfate-D5w Pmx 100 1 gm In Dextrose/Water 1 100ml.bag @ 100 mls/hr IVPB ONCE ONE Rx#: [id number] Piperacillin-Tazobactam 3 100 .375 gm In Sodium Chloride 0.9% 100 ml @ 25 mls/hr IVPB Q8H [facility] Rx#: [id number] Sodium Chloride 0.9% 1, 20 000 ml @ 20 mls/hr IV . Q24H [facility] Rx#:[id number] Sodium Chloride 0.9% 500 500 ml 500 ml @ 999 mls/hr IV .Q31M ONE Rx#:[id number] Oral 950 150 Output: Urine 470 410 230 Other: Voiding Method Indwelling Catheter Indwelling Catheter Indwelling Catheter ABP, PAP, CO, CI - Last Documented Arterial Blood Pressure 159/69 - Exam GENERAL: Revealed a 68-year-old female, obese, on 2 L nasal cannula with O2 sat of 97% HEENT: Head is normocephalic. Dry mucous membranes. LUNGS: Clear bilaterally no crackles rhonchi or wheezes HEART: Distant S1-S2, no S3 gallop, no murmur. ABDOMEN obese,Soft. Nondistended. Nontender. Positive bowel sounds. EXTREMITIES: No deformities and no limitation range of motion, no clubbing edema or cyanosis. Distal pulses are diminished bilaterally. NEUROLOGIC: Awake, alert and oriented x 3 no gross focal neurologic deficits Psychiatric: Normal mood, affect, confused mental status - Labs CBC & Chem 7: 03/19/24 04:35 03/19/24 04:35 Labs: Abnormal Lab Results - Last 24 Hours (Table) 03/19/24 03/19/24 03/19/24 Range/Units 04:35 04:35 06:50 WBC 12.7 H (3.8-10.6) k/uL RBC 3.61 L (3.80-5.40) m/uL Hgb 11.2 L (11.4-16.0) gm/dL Hct 33.7 L (34.0-46.0) % Neutrophils # 9.9 H (1.3-7.7) k/uL Glucose 105 H (74-99) mg/dL POC Glucose (mg/dL) 133 H (70-110) mg/dL Calcium 8.3 L (8.4-10.2) mg/dL 03/19/24 Range/Units 11:17 WBC (3.8-10.6) k/uL RBC (3.80-5.40) m/uL Hgb (11.4-16.0) gm/dL Hct (34.0-46.0) % Neutrophils # (1.3-7.7) k/uL Glucose (74-99) mg/dL POC Glucose (mg/dL) 123 H (70-110) mg/dL Calcium (8.4-10.2) mg/dL Microbiology - Last 24 Hours (Table) 03/16/24 09:18 Gram Stain - Final Sputum Sputum Culture - Final Assessment and Plan Assessment: Impression: Acute ventricular fibrillation cardiac arrest requiring CPR, exact downtime is unknown. Prolonged QTc interval, may be related to a combination of medications including sotalol and antibiotics. Hypotension secondary to cardiac arrest and secondary to arrhythmia History of benign essential hypertension History of paroxysmal atrial fibrillation normally on Eliquis Suspect aspiration pneumonia with recurrent fever, low-grade temp, and abnormal chest x-ray. Patient is now back on Zosyn which was discontinued by cardiology on her initial admission Altered mental status, resolved this was most likely a metabolic encephalopathy that has cleared nicely over the last 24 hours Recommendation: Continue oxygen at 2 L and titrate accordingly Continue to monitor in the ICU for the next 24 hours Resume Eliquis Reviewed the consultation from EPS cardiology Continue nutritional support GI and DVT prophylaxis Will continue to follow. Time with Patient: Less than 30
--- NOTE | 2024-03-19 21:30 | P.PN ---
Subjective Progress Note Date: 03/19/24 Principal diagnosis: Reason for follow-up is fever likely aspiration pneumonia Patient is a 68-year-old female with a past medical history significant for hypertension atrial fibrillation brought to the hospital after cardiac arrest at home possibly related to QT prolongation status post resuscitation did have a fever and concern for possible aspiration pneumonia. On today's evaluation that is 03/19/2024,the patient denies any fever or any chills, patient is breathing comfortably on 2 L nasal cannula oxygen, the patient denies chest pain shortness of breath and no significant cough, patient denies abdominal pain, no nausea vomiting or diarrhea. Patient white count is down to 12.7 creatinine 0.65 Objective - Vital Signs Vital signs: Vital Signs Temp 99 F 03/19/24 16:00 Pulse 84 03/19/24 18:00 Resp 18 03/19/24 18:00 BP 154/83 03/19/24 08:00 Pulse Ox 98 03/19/24 18:00 FiO2 35 03/17/24 12:38 Intake & Output 03/18/24 03/19/24 03/19/24 18:59 06:59 18:59 Intake Total 1923 336 816 Output Total 470 410 700 Balance 1453 -74 116 Weight 112.6 kg Intake: IV 253 336 216 Sodium Chloride 0.9% 1, 220 300 180 000 ml @ 20 mls/hr IV . Q24H [facility] Rx#:[id number] pressure bag 33 36 36 Intake, IV Titration 720 200 Amount Magnesium Sulfate-D5w Pmx 100 1 gm In Dextrose/Water 1 100ml.bag @ 100 mls/hr IVPB ONCE ONE Rx#: [id number] Magnesium Sulfate-D5w Pmx 100 1 gm In Dextrose/Water 1 100ml.bag @ 100 mls/hr IVPB ONCE ONE Rx#: [id number] Piperacillin-Tazobactam 3 100 100 .375 gm In Sodium Chloride 0.9% 100 ml @ 25 mls/hr IVPB Q8H [facility] Rx#: [id number] Sodium Chloride 0.9% 1, 20 000 ml @ 20 mls/hr IV . Q24H [facility] Rx#:[id number] Sodium Chloride 0.9% 500 500 ml 500 ml @ 999 mls/hr IV .Q31M [facility] Rx#:[id number] Oral 950 400 Output: Urine 470 410 700 Other: Voiding Method Indwelling Catheter Indwelling Catheter Indwelling Catheter ABP, PAP, CO, CI - Last Documented Arterial Blood Pressure 153/61 - Exam GENERAL DESCRIPTION: An elderly female lying in bed in no distress RESPIRATORY SYSTEM: Unlabored breathing , decreased breath sounds at bases HEART: S1 S2 regular rate and rhythm , ABDOMEN: Soft , no tenderness EXTREMITIES: No edema feet - Labs CBC & Chem 7: 03/19/24 04:35 03/19/24 04:35 Labs: Abnormal Lab Results - Last 24 Hours (Table) 03/19/24 03/19/24 03/19/24 Range/Units 04:35 04:35 06:50 WBC 12.7 H (3.8-10.6) k/uL RBC 3.61 L (3.80-5.40) m/uL Hgb 11.2 L (11.4-16.0) gm/dL Hct 33.7 L (34.0-46.0) % Neutrophils # 9.9 H (1.3-7.7) k/uL Glucose 105 H (74-99) mg/dL POC Glucose (mg/dL) 133 H (70-110) mg/dL Calcium 8.3 L (8.4-10.2) mg/dL 03/19/24 Range/Units 11:17 WBC (3.8-10.6) k/uL RBC (3.80-5.40) m/uL Hgb (11.4-16.0) gm/dL Hct (34.0-46.0) % Neutrophils # (1.3-7.7) k/uL Glucose (74-99) mg/dL POC Glucose (mg/dL) 123 H (70-110) mg/dL Calcium (8.4-10.2) mg/dL Assessment and Plan (1) Aspiration pneumonia Current Visit: Yes Status: Acute Code(s): J69.0 - PNEUMONITIS DUE TO INHALATION OF FOOD AND VOMIT SNOMED Code(s): 823339574 (2) Fever Current Visit: Yes Status: Acute Code(s): R50.9 - FEVER, UNSPECIFIED SNOMED Code(s): 513811184 (3) Leukocytosis Current Visit: Yes Status: Acute Code(s): D72.829 - ELEVATED WHITE BLOOD CELL COUNT, UNSPECIFIED SNOMED Code(s): 150470698 Plan: 1patient presented to the hospital with a cardiac arrest at home has been resuscitated intubated on the scene subsequently has been extubated patient now having a low-grade fever did have elevated white count CT on admission did shows a left lower lobe consolidation/aspiration and likely concerning for aspiration pneumonia. 2blood cultures currently pending sputum not collected patient did have resolution of her fever white count is trending down continue with Zosyn and monitor clinical course closely Dictation was produced using [employer] dictation software. please excuse any grammatical, word or spelling errors. Time with Patient: Less than 30
--- NOTE | 2024-03-20 00:38 | P.PN ---
Subjective Progress Note Date: 03/19/24 Patient was seen for a follow-up. Patient is laying comfortably in the bed. Patient is more alert and awake. Patient denies any headache or dizziness. Objective - Vital Signs Vital signs: Vital Signs Temp 98.9 F 03/19/24 12:00 Pulse 81 03/19/24 12:00 Resp 24 03/19/24 12:00 BP 154/83 03/19/24 08:00 Pulse Ox 97 03/19/24 11:00 FiO2 35 03/17/24 12:38 Intake & Output 03/18/24 03/19/24 03/19/24 18:59 06:59 18:59 Intake Total 1923 336 508 Output Total 470 410 260 Balance 1453 -74 248 Weight 112.6 kg Intake: IV 253 336 158 Sodium Chloride 0.9% 1, 220 300 140 000 ml @ 20 mls/hr IV . Q24H [facility] Rx#:[id number] pressure bag 33 36 18 Intake, IV Titration 720 200 Amount Magnesium Sulfate-D5w Pmx 100 1 gm In Dextrose/Water 1 100ml.bag @ 100 mls/hr IVPB ONCE ONE Rx#: [id number] Magnesium Sulfate-D5w Pmx 100 1 gm In Dextrose/Water 1 100ml.bag @ 100 mls/hr IVPB ONCE ONE Rx#: [id number] Piperacillin-Tazobactam 3 100 100 .375 gm In Sodium Chloride 0.9% 100 ml @ 25 mls/hr IVPB Q8H [facility] Rx#: [id number] Sodium Chloride 0.9% 1, 20 000 ml @ 20 mls/hr IV . Q24H [facility] Rx#:[id number] Sodium Chloride 0.9% 500 500 ml 500 ml @ 999 mls/hr IV .Q31M [facility] Rx#:[id number] Oral 950 150 Output: Urine 470 410 260 Other: Voiding Method Indwelling Catheter Indwelling Catheter Indwelling Catheter ABP, PAP, CO, CI - Last Documented Arterial Blood Pressure 152/72 - Exam Patient is fully alert and awake. Patient's speech and language functions are normal. Patient states is a month of January, and the year is 2023. She knows that she is in [facility] in [facility]. Rest of the examination is unchanged. - Labs CBC & Chem 7: 03/19/24 04:35 03/19/24 04:35 Labs: Abnormal Lab Results - Last 24 Hours (Table) 03/19/24 03/19/24 03/19/24 Range/Units 04:35 04:35 06:50 WBC 12.7 H (3.8-10.6) k/uL RBC 3.61 L (3.80-5.40) m/uL Hgb 11.2 L (11.4-16.0) gm/dL Hct 33.7 L (34.0-46.0) % Neutrophils # 9.9 H (1.3-7.7) k/uL Glucose 105 H (74-99) mg/dL POC Glucose (mg/dL) 133 H (70-110) mg/dL Calcium 8.3 L (8.4-10.2) mg/dL 03/19/24 Range/Units 11:17 WBC (3.8-10.6) k/uL RBC (3.80-5.40) m/uL Hgb (11.4-16.0) gm/dL Hct (34.0-46.0) % Neutrophils # (1.3-7.7) k/uL Glucose (74-99) mg/dL POC Glucose (mg/dL) 123 H (70-110) mg/dL Calcium (8.4-10.2) mg/dL Microbiology - Last 24 Hours (Table) 03/16/24 09:18 Gram Stain - Final Sputum Sputum Culture - Final Assessment and Plan Assessment: * Status post [id number], witnessed V-fib cardiac arrest. Patient had prolonged downtime of 22 minutes, but patient has recovered extremely well. Patient has been extubated, fully alert and awake, fairly well-oriented and relatively nonfocal examination. * Memory disturbance, likely due to above. Metabolic encephalopathy, likely due to above, improving. * Elevated troponins * History of atrial fibrillation, on anticoagulation * Status post extubation 03/17/2024 * Possible aspiration pneumonia * Hypertension Plan: * Patient's mental status appears fairly intact. Neurologic examination is ema ssly nonfocal. * Patient is being followed up with trust administrative assistant and electrophysiology team. * Carotid Doppler revealed atheromatous plaquing. Some minimal velocity elevation in the left ICA, suggest this could be within 50% range. Antegrade flow in both vertebral arteries. * Await EEG. * Continue Eliquis 5 mg twice daily for atrial fibrillation. * Patient on Zosyn for possible aspiration pneumonia. * Other management as per IM and other specialties on board. * PT OT * Hemoglobin A1c 6.4. * Dr. Michel Myers Will resume neurology service for the morning.
[2024-03-20 05:10] LABS: Basophils % (A) 0 %; Eosinophils # (A) 0.2 k/uL (0-0.7); Eosinophils % (A) 2 %; HCT 34.3 % (34.0-46.0); HGB 10.8 gm/dL (11.4-16.0); Hypochromasia Slight; Lymphocytes # (A) 1.6 k/uL (1.0-4.8); Lymphocytes % (A) 14 %; MCH 30.1 pg (25.0-35.0); MCHC 31.4 g/dL (31.0-37.0); MCV 95.8 fL (80.0-100.0); Mean Platelet Volume 8.1; Monocytes # (A) 0.8 k/uL (0-1.0); Monocytes % (A) 7 %; Neutrophils # (A) 8.6 k/uL (1.3-7.7); Neutrophils % (A) 75 %; Platelet Count 321 k/uL (150-450); RBC 3.58 m/uL (3.80-5.40); RDW 13.1 % (11.5-15.5); WBC 11.5 k/uL (3.8-10.6)
[2024-03-20 05:27] LABS: African American GFR (CKD) >90 (>60 ml/min/1.73 sqM); Anion Gap 0 mmol/L; Blood Urea Nitrogen 17 mg/dL (7-17); Calcium 8.5 mg/dL (8.4-10.2); Carbon Dioxide 30 mmol/L (22-30); Chloride 108 mmol/L (98-107); Glucose 118 mg/dL (74-99); Non-African American GFR(CKD) >90 (>60 ml/min/1.73 sqM); Potassium 3.8 mmol/L (3.5-5.1); Sodium 138 mmol/L (137-145)
[2024-03-20] MEDS: POTASSIUM CHLORIDE ER 20 MEQ TAB.ER PO SCH (06:27)
[2024-03-20 07:29] LABS: Glucose,Whole Blood 185 mg/dL (70-110)
[2024-03-20 11:05] LABS: Glucose,Whole Blood 135 mg/dL (70-110)
--- NOTE | 2024-03-20 11:53 | P.PN ---
Subjective Progress Note Date: 03/20/24 Principal diagnosis: Cardiopulmonary arrest. 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 Patient was brought into the ER by EMS, apparently the family heard a thump in the other room where they went to see what happened they noticed that the patient was on the floor. Patient was unresponsive, CPR was started by family members, 911 was called, upon arrival of EMS, patient was in V-fib, patient received further CPR, defibrillation, and she also received epinephrine by EMS. Brought into the emergency room intubated, patient was seen initially in the ER by myself, and I went ahead and placed a right femoral triple-lumen catheter for venous access/central access. Patient was extremely agitated, restless, unresponsive to any stimuli, quite obtunded, and her blood pressure was initially in the 70s systolic. Patient received Nimbex initially and then she her propofol was titrated, she is presently on propofol. Patient was placed on assist-control mode of mechanical ventilation, ABG now is pending. Patient was seen by cardiology and underwent cardiac catheterization and she was found to have n ormal coronaries. No significant findings according to the cardiology report. Patient was brought back to ICU after cardiac catheterization, and I saw her again in the ICU left radial arterial line was placed. Patient was noted to have intermittent episodes of bradycardia with hypotension, received 1 dose of atropine, 0.5 mg, and she responded well to atropine. With increase in the heart rate to the 80s, and blood pressure was noted to be 160 systolic with increased heart rate hence norepinephrine was being titrated and I recommended stopping norepinephrine at that point. Considered placing the patient on dopamine, but did not require to do so. According to the cardiology note, it was felt that her cardiac arrest may have been secondary to sotalol along with the recent antibiotic taken for dental infection causing prolonged QTc interval leading to ventricular fibrillation arrest. Patient was evaluated today on 03/17/2024, patient is still in ICU, intubated and mechanically ventilated. She is on assist-control rate of 18 tidal volume 450 FiO2 40% and PEEP of 5 ABG showed a pO2 of 133 pCO2 36 pH of 7.46 and straight was cut down to 16 and FiO2 Down to 35%. Patient remains on dopamine at 2.5 mcg/kg/min norepinephrine at 0.01 mcg/kg/min propofol at 30 mcg/kg/min and IV fluid at KVO. Chest x-ray showed minimal bibasilar atelectasis, slight prominence of the pulmonary vasculature, no clear-cut evidence of pneumonia. Hence Zosyn was discontinued, not to mention patient had normal procalcitonin level on admission and today WBC count is 16.1 hemoglobin is 11.7, basic metab olic profile is normal renal profile is normal, procalcitonin is 0.38. No major issues overnight, patient remains on pressors, dopamine was added yesterday mostly because of her intermittent episodes of bradycardia with hypotension, today I plan to transition the patient from propofol to Precedex, and hopefully address weaning if possible. Will depend on her overall mental status during this transition. \ Was seen today on 03/18/2024, patient was extubated yesterday from mechanical ventilation, and she is now on nasal cannula. No major issues overnight, patient is on 2 L nasal cannula, however she is on amiodarone 1 mg/min as ordered by cardiology, blood pressure is elevated patient is requiring lisinopril and hydralazine. Her mental status is not perfect, patient seems to be confused had no idea where she was, she felt that she was in [facility], she also did not know the year and or the month did not know the name of the president. WBC count today is 14.5 hemoglobin is 12 electrolytes are normal renal profile is normal renal profile is normal chest x-ray today is showing evidence of left basilar atelectasis, possible pneumonia involving the left lower lobe with air bronchogram could be seen in the retrocardiac area. Considering the patient is having intermittent fevers, patient needs to go back on antibiotics. The choices are limited, but at this point I believe Zosyn would be a better choice for this patient considering that the patient may have also aspirated. Will ask infectious disease to evaluate specially with the choice of antibiotics being limited procalcitonin initially was normal infectious disease will see on consultation Patient was seen today on 03/19/2024, patient is doing much better today compared to yesterday, her confusion has resolved, patient is doing great overall. She was seen by Dr. sanchezfor her arrhythmia, he is recommending no further treatment with sotalol or any QT prolonging antiarrhythmic drug. He is also recommending stopping IV amiodarone and placing the patient on metoprolol 50 mg twice daily and titrate accordingly. Also recommending oral magnesium as well as Aldactone 25 mg daily along with lisinopril. In addition also recommending Eliquis. Patient remains in the ICU, doing fairly well, blood pressure remains a bit elevated, blood pressure medication is being adjusted. WBC count is 12.7 hemoglobin 11.2 electrolytes are normal renal profile is normal patient is 1.9 Progress note dated March 20, 2024. This is a 68-year-old female who was admitted to the hospital on March 16. The patient had a cardiopulmonary arrest. It was essentially a ventricular fibrillation arrest. She was intubated on March 16, she had a catheterization which was apparently okay. She was extubated the following day on March 17. Currently, she is on room air. She is not receiving any IV fluids. She is s itting in a chair next to the hospital bed. The patient could be transferred out to the 3 S. unit. Current labs include a white count 1.5, hemoglobin 10.8, hematocrit 34.3, and a normal platelet count. Sodium 138, potassium 3.8, chlorides 108, CO2 30, BUN 17, creatinine 0.59. Glucose is 135. Blood and sputum sampling is negative. No chest x-ray today. Objective - Vital Signs Vital signs: Vital Signs Temp 98.8 F 03/20/24 08:00 Pulse 79 03/20/24 11:00 Resp 23 03/20/24 11:00 BP 163/105 03/20/24 11:00 Pulse Ox 94 L 03/20/24 11:00 FiO2 35 03/17/24 12:38 Intake & Output 03/19/24 03/20/24 03/20/24 18:59 06:59 18:59 Intake Total 816 700 0 Output Total 700 705 0 Balance 116 -5 0 Weight 113 kg Intake: IV 216 250 0 Sodium Chloride 0.9% 1, 180 220 0 000 ml @ 20 mls/hr IV . Q24H [facility] Rx#:[id number] pressure bag 36 30 Intake, IV Titration 200 200 Amount Magnesium Sulfate-D5w Pmx 100 1 gm In Dextrose/Water 1 100ml.bag @ 100 mls/hr IVPB ONCE ONE Rx#: [id number] Piperacillin-Tazobactam 3 100 200 .375 gm In Sodium Chloride 0.9% 100 ml @ 25 mls/hr IVPB Q8H [facility] Rx#: [id number] Oral 400 250 Output: Urine 700 705 0 Other: Voiding Method Indwelling Catheter Indwelling Catheter # Voids 1 # Bowel Movements 1 ABP, PAP, CO, CI - Last Documented Arterial Blood Pressure 154/67 - Exam No acute distress, oriented 3. Currently on room air. HEENT examination is grossly unremarkable. Mucous membranes are moist. No oral lesions. Neck supple. Full range of motion. No adenopathy thyromegaly or neck vein distention. Cardiovascular examination reveals regular rhythm rate. S1-S2 normal. No S3 or S4. No discernible murmur noted. Lungs reveal clear breath sounds. Breath sounds are equal bilaterally. No adventitious lung sounds including wheezes rhonchi or crackles. Abdomen soft bowel sounds are heard. No masses or tenderness. Extremities are intact. No cyanosis clubbing or edema. Skin is without rash or lesion. Neurologic examination is brief but nonfocal. - Labs CBC & Chem 7: 03/20/24 05:00 03/20/24 05:00 Labs: Abnormal Lab Results - Last 24 Hours (Table) 03/20/24 03/20/24 03/20/24 Range/Units 05:00 05:00 07:27 WBC 11.5 H (3.8-10.6) k/uL RBC 3.58 L (3.80-5.40) m/uL Hgb 10.8 L (11.4-16.0) gm/dL Neutrophils # 8.6 H (1.3-7.7) k/uL Chloride 108 H (98-107) mmol/L Glucose 118 H (74-99) mg/dL POC Glucose (mg/dL) 185 H (70-110) mg/dL 03/20/24 Range/Units 11:03 WBC (3.8-10.6) k/uL RBC (3.80-5.40) m/uL Hgb (11.4-16.0) gm/dL Neutrophils # (1.3-7.7) k/uL Chloride (98-107) mmol/L Glucose (74-99) mg/dL POC Glucose (mg/dL) 135 H (70-110) mg/dL Microbiology - Last 24 Hours (Table) 03/18/24 12:40 Blood Culture - Preliminary Blood Assessment and Plan Assessment: Acute [id number] ventricular fibrillation cardiopulmonary arrest. Postcardiac arrest intubation, on March 16, with extubation on March 17. Prolonged QTc interval, which may relate to beta-luis antonio/antibiotic. Hypotension, secondary to cardiac arrest, resolved. History of benign essential hypertension. History of paroxysmal atrial fibrillation. Possible aspiration pneumonia. Acute mental status changes, improved. Plan: Plan dated March 20, 2024. The patient appears to be doing relatively well. She sitting in the chair next to her hospital bed. She is on room air. She is not requiring any IV fluids. Labs, x-rays, medications are all reviewed. The patient can be transferred up to the cardiac floor, 3 S. We will continue to follow make recommendations along the way. Prognosis is guarded. Time with Patient: Less than 30
[2024-03-20 13:15] VITALS: BMI 37.8
--- NOTE | 2024-03-20 13:37 | P.PN ---
Subjective Progress Note Date: 03/20/24 No new complaints today. Doing quite well, can be stepped down to floor Gen: In NAD, non-toxic HEENT: normocephalic, atraumatic, hearing acuity is intant, mucous membranes moist CVS: perfusing all extremities well, no pitting edema, Respiratory: symmetric chest expansion, no accessory muscle use, GI: soft, NTTP, ND, : no suprapubic tenderness, no CVA tenderness MSK/Derm: no rashes, cyanosis Neuro: CN II-XII intact, no motor weakness, Psych: cooperative, euthymic mood, judgment and insight is intact Hospital course: Patient is a 68-year-old female with history of hypertension, atrial fibril lation on Eliquis had an outside [id number] cardiac arrest. Patient's temperature was 97.6, pulse 100, respiratory rate 24, blood pressure 183/109 saturating at 97% with mechanical ventilation. Chest x-ray independently interpreted, showed bilateral interstitial opacities. Chest CTA did not show any PE, bilateral rib fractures secondary to CPR, possible aspiration versus pneumonia, pulmonary edema. Head and neck CT did not show any acute fractures, otherwise no acute process. Patient was started on EKG showed sinus arrhythmia, fascicular block, no significant ST or T wave changes. Patient was evaluated by cardiology and pulmonology. She was taken directly to cardiac cath, and then transferred to medical ICU. -Reportedly, left heart cath showed no significant coronary artery disease Assessment/Plan: Active: Qkj-of-[id number] V-fib cardiac arrest Acute encephalopathy, likely metabolic Elevated troponin Leukocytosis Shock, likely cardiogenic versus medication induced Paroxysmal A Fib with RVR Suspected aspiration pneumonia -Pulmonology consulted, appreciate recommendations -Cardiology consulted, appreciate recommendations -Patient on Eliquis -Continue metoprolol, EP recommending adding spironolactone, defer to them on timing of initiation - Hyperglycemia, likely reactive -A1c 6.4 -Sliding scale insulin, every 4 hours as needed, monitor for hypoglycemia Intertrigo -Nystatin powder The patient is admitted with an anticipated greater than 2 midnight stay as inpa tient status for evaluation of cardiac arrest. Surrogate decision-maker: Son CODE STATUS: Full code DVT prophylaxis: heparin Anticipated discharge date: Pending clinical course Anticipated discharge place: Pending clinical course Objective - Vital Signs Vital signs: Vital Signs Temp 99.2 F 03/20/24 12:00 Pulse 70 03/20/24 12:00 Resp 20 03/20/24 12:00 BP 140/65 03/20/24 12:00 Pulse Ox 94 L 03/20/24 12:00 FiO2 35 03/17/24 12:38 Intake & Output 03/19/24 03/20/24 03/20/24 18:59 06:59 18:59 Intake Total 816 700 265 Output Total 700 705 0 Balance 116 -5 265 Weight 113 kg 113 kg Intake: IV 216 250 25 Piperacillin-Tazobactam 3 25 .375 gm In Sodium Chloride 0.9% 100 ml @ 25 mls/hr IVPB Q8H [facility] Rx#: [id number] Sodium Chloride 0.9% 1, 180 220 0 000 ml @ 20 mls/hr IV . Q24H [facility] Rx#:[id number] pressure bag 36 30 Intake, IV Titration 200 200 Amount Magnesium Sulfate-D5w Pmx 100 1 gm In Dextrose/Water 1 100ml.bag @ 100 mls/hr IVPB ONCE ONE Rx#: [id number] Piperacillin-Tazobactam 3 100 200 .375 gm In Sodium Chloride 0.9% 100 ml @ 25 mls/hr IVPB Q8H [facility] Rx#: [id number] Oral 400 250 240 Output: Urine 700 705 0 Other: Voiding Method Indwelling Catheter Indwelling Catheter # Voids 1 # Bowel Movements 1 ABP, PAP, CO, CI - Last Documented Arterial Blood Pressure 154/67 - Labs CBC & Chem 7: 03/20/24 05:00 03/20/24 05:00 Labs: Abnormal Lab Results - Last 24 Hours (Table) 03/20/24 03/20/24 03/20/24 Range/Units 05:00 05:00 07:27 WBC 11.5 H (3.8-10.6) k/uL RBC 3.58 L (3.80-5.40) m/uL Hgb 10.8 L (11.4-16.0) gm/dL Neutrophils # 8.6 H (1.3-7.7) k/uL Chloride 108 H (98-107) mmol/L Glucose 118 H (74-99) mg/dL POC Glucose (mg/dL) 185 H (70-110) mg/dL 03/20/24 Range/Units 11:03 WBC (3.8-10.6) k/uL RBC (3.80-5.40) m/uL Hgb (11.4-16.0) gm/dL Neutrophils # (1.3-7.7) k/uL Chloride (98-107) mmol/L Glucose (74-99) mg/dL POC Glucose (mg/dL) 135 H (70-110) mg/dL Microbiology - Last 24 Hours (Table) 03/18/24 12:40 Blood Culture - Preliminary Blood
--- NOTE | 2024-03-20 15:13 | P.PN ---
Subjective Progress Note Date: 03/20/24 HISTORY OF PRESENT ILLNESS: This is a 68-year-old female with a past medical history significant for hy pertension and paroxysmal atrial fibrillation. Patient follows with a contribution solicitor at [facility]. We have been asked to see the patient in consultation for cardiac arrest. Patient's family is present. Patient's family states that they heard a thump in the other room and when they went to see what happened they noticed the patient was on the floor. She was unresponsive. 911 was called and CPR was started. The patient was apparently in V-fib when EMS arrived. She did receive defibrillation along with epinephrine. Patient examined at the bedside in the emergency room. Patient remains intubated on mechanical ventilation. She is sedated with propofol. Patient's family denies any known history of CAD. Patient's blood pressure at the time of examination is low with a systolic in the 70s. Her propofol has been paused and she has been started on Levophed. Patient's family gives additional history that the patient was recently on antibiotics for a dental infection. DIAGNOSTICS: - EKG reveals sinus mechanism with a heart rate of 92. - Chest xray findings felt to reflect congestive failure. Infiltrates or other etiology not excluded. - Laboratory data: WBC 18.3. Hemoglobin 13.7. Platelet count 426. Sodium 139. Potassium 5.1. BUN 16. Creatinine 0.86. Magnesium 1.8. AST 94. ALT 44. Troponin 0.079. - Current home cardiac medications include lisinopril 5 mg daily, sotalol 80 mg twice a day, Eliquis 5 mg twice a day 03/17 Patient did have intermittent bradycardia was placed on dopamine. Left heart catheterization was performed with a mild luminal irregularities and elevated LVEDP. She remains on ventilator and opening eyes intermittently however not following obvious commands. Remaines on propofol. 03/18 patient seen and examined. Patient was extubated and currently denies any chest pain or pressure or shortness of breath.she has continued to have intermittent episodes of atrial flutter/ atrial tachycardia with additional sinus bradycardia with heart rates in the 40s. She states prior to this episode she did not really have any episodes of lightheadedness or dizziness and has not had a prior syncope. She denies any family history of sudden cardiac . She does follow with Dr. Joel in [facility]. She can usually not feel her A. fib or atrial flutter. Echo performed with EF 50-55%. EKG from 09/16 shows QTC 496 when in sinus rhythm at heart rate 63 bpm. 03/19 Patient is seen and examined in the intensive care unit. She has been succ essfully extubated. Patient is stating that she is feeling better from yesterday. She does have mental status changes with confusion and followed by neurology. Yesterday, patient was on amiodarone at 1 mg drip and converted to sinus rhythm but when she dropped down to 0.5 mg her heart rate went up to the 120s and 130s and this occurred around 2:30 in the afternoon. Blood pressure was also fluctuating. She was seen by Dr. Teran and amiodarone was discontinued and patient started on beta-luis antonio with recommendations to increase this today. Patient was also started on Aldactone which she has not received yet. Blood pressure 103/52, heart rate is in the 120s, atrial flutter. Patient denies have any chest pain and no shortness of breath. Repeat blood work reveals WBC 12.7, hemoglobin 9.2. Electrolytes are normal, creatinine 0.65. March 20, 2024 Patient is seen and examined at the bedside this a.m. On review of telemetry patient she is in rate controlled atrial fibrillation. Her ECG shows corrected QTc around 400 ms. She denies any chest pain chest pressure shortness of br eath. Electrolytes were reviewed potassium 3.9, magnesium 2.0 PHYSICAL EXAM: VITAL SIGNS: Reviewed. GENERAL: Well-developed in no acute distress. HEENT: Head is normocephalic. Pupils are equal, round. Sclerae anicteric. Mucous membranes of the mouth are moist. Neck supple. No JVD or thyromegaly LUNGS: Respirations even and unlabored. Lungs essentially clear to auscultation bilaterally. HEART: Regular rate and rhythm. S1 and S2 heard. ABDOMEN: Soft. Nondistended. Nontender. EXTREMITIES: Normal range of motion. No clubbing or cyanosis. Peripheral pulses intact. No lower extremity edema NEUROLOGIC: Patient is awake and alert, confused ASSESSMENT: Ventricular fibrillation cardiac arrest, related to prolonged QT and Sotalol Prolonged QTc, measuring 470 on EKG performed in director of cardiac cath lab Rule out tachybradycardia syndrome Hypotension, after initiation of IV propofol, requiring vasopressor support History of hypertension Paroxysmal atrial fibrillation, on Eliquis outpatient Mild CAD Bradycardia, likely related to sedation Patient's echocardiogram showed an EF of 55% with no major valvular abnormalities or any structural abnormalities. PLAN: Do not resume sotalol. Discontinue it going forward. Continue metoprolol 50 mg twice daily. Continue lisinopril at 10 mg daily. Continue anticoagulation with Eliquis Due to severe cardiac arrest, obtain a LifeVest for at least 3 months. Follow-up with primary contribution solicitor Dr. Joel From an outpatient evaluation for the need for ICD. Patient does have a tendency of having low heart rates and higher heart rates. I do suspect some tachybradycardia syndrome. She would benefit from getting an outpatient treadmill stress test to evaluate her exercise capacity and any exercise-induced arrhythmias and her heart rate trends. Patient is otherwise cleared to be discharged from cardiovascular standpoint. Monitor her on telemetry today for any arrhythmias Objective - Vital Signs Vital signs: Vital Signs Temp 99.2 F 03/20/24 12:00 Pulse 70 03/20/24 12:00 Resp 20 03/20/24 12:00 BP 140/65 03/20/24 12:00 Pulse Ox 94 L 03/20/24 12:00 FiO2 35 03/17/24 12:38 Intake & Output 03/19/24 03/20/24 03/20/24 18:59 06:59 18:59 Intake Total 816 700 265 Output Total 700 705 0 Balance 116 -5 265 Weight 113 kg 113 kg Intake: IV 216 250 25 Piperacillin-Tazobactam 3 25 .375 gm In Sodium Chloride 0.9% 100 ml @ 25 mls/hr IVPB Q8H [facility] Rx#: [id number] Sodium Chloride 0.9% 1, 180 220 0 000 ml @ 20 mls/hr IV . Q24H [facility] Rx#:[id number] pressure bag 36 30 Intake, IV Titration 200 200 Amount Magnesium Sulfate-D5w Pmx 100 1 gm In Dextrose/Water 1 100ml.bag @ 100 mls/hr IVPB ONCE ONE Rx#: [id number] Piperacillin-Tazobactam 3 100 200 .375 gm In Sodium Chloride 0.9% 100 ml @ 25 mls/hr IVPB Q8H [facility] Rx#: [id number] Oral 400 250 240 Output: Urine 700 705 0 Other: Voiding Method Indwelling Catheter Indwelling Catheter # Voids 1 # Bowel Movements 1 ABP, PAP, CO, CI - Last Documented Arterial Blood Pressure 154/67 - Labs CBC & Chem 7: 03/20/24 05:00 03/20/24 05:00 Labs: Abnormal Lab Results - Last 24 Hours (Table) 03/20/24 03/20/24 03/20/24 Range/Units 05:00 05:00 07:27 WBC 11.5 H (3.8-10.6) k/uL RBC 3.58 L (3.80-5.40) m/uL Hgb 10.8 L (11.4-16.0) gm/dL Neutrophils # 8.6 H (1.3-7.7) k/uL Chloride 108 H (98-107) mmol/L Glucose 118 H (74-99) mg/dL POC Glucose (mg/dL) 185 H (70-110) mg/dL 03/20/24 Range/Units 11:03 WBC (3.8-10.6) k/uL RBC (3.80-5.40) m/uL Hgb (11.4-16.0) gm/dL Neutrophils # (1.3-7.7) k/uL Chloride (98-107) mmol/L Glucose (74-99) mg/dL POC Glucose (mg/dL) 135 H (70-110) mg/dL Microbiology - Last 24 Hours (Table) 03/18/24 12:40 Blood Culture - Preliminary Blood
[2024-03-20 16:46] LABS: Glucose,Whole Blood 101 mg/dL (70-110)
--- NOTE | 2024-03-20 16:48 | P.PN ---
Subjective Progress Note Date: 03/20/24 I am seeing the patient for the first time during this admission. Please refer to Dr. Wheeler's notes for further details. The patient has status post out of the hospital weakness cardiac arrest. Patient is extubated and she is doing better. Upon seeing her she feels she is doing better and she stated 1 can I go home? Denies of any focal weakness numbness visual disturbance. Objective - Vital Signs Vital signs: Vital Signs Temp 99.2 F 03/20/24 12:00 Pulse 70 03/20/24 12:00 Resp 20 03/20/24 12:00 BP 140/65 03/20/24 12:00 Pulse Ox 94 L 03/20/24 12:00 FiO2 35 03/17/24 12:38 Intake & Output 03/19/24 03/20/24 03/20/24 18:59 06:59 18:59 Intake Total 816 700 265 Output Total 700 705 0 Balance 116 -5 265 Weight 113 kg 113 kg Intake: IV 216 250 25 Piperacillin-Tazobactam 3 25 .375 gm In Sodium Chloride 0.9% 100 ml @ 25 mls/hr IVPB Q8H [facility] Rx#: [id number] Sodium Chloride 0.9% 1, 180 220 0 000 ml @ 20 mls/hr IV . Q24H [facility] Rx#:[id number] pressure bag 36 30 Intake, IV Titration 200 200 Amount Magnesium Sulfate-D5w Pmx 100 1 gm In Dextrose/Water 1 100ml.bag @ 100 mls/hr IVPB ONCE ONE Rx#: [id number] Piperacillin-Tazobactam 3 100 200 .375 gm In Sodium Chloride 0.9% 100 ml @ 25 mls/hr IVPB Q8H [facility] Rx#: [id number] Oral 400 250 240 Output: Urine 700 705 0 Other: Voiding Method Indwelling Catheter Indwelling Catheter # Voids 1 # Bowel Movements 1 ABP, PAP, CO, CI - Last Documented Arterial Blood Pressure 154/67 - Exam General: Sitting in a recliner chair and does not appear in acute distress. Neuro: Patient is awake alert oriented to self place. Stated the month is August and the year is 2011. Is following simple commands. No aphasia. The pupils are round equal reactive to light. Visual cintron are full to confrontation. Extraocular movements intact No facial weakness. No dysarthria Motor is left in all extremities above gravity equally. - Labs CBC & Chem 7: 03/20/24 05:00 03/20/24 05:00 Labs: Abnormal Lab Results - Last 24 Hours (Table) 03/20/24 03/20/24 03/20/24 Range/Units 05:00 05:00 07:27 WBC 11.5 H (3.8-10.6) k/uL RBC 3.58 L (3.80-5.40) m/uL Hgb 10.8 L (11.4-16.0) gm/dL Neutrophils # 8.6 H (1.3-7.7) k/uL Chloride 108 H (98-107) mmol/L Glucose 118 H (74-99) mg/dL POC Glucose (mg/dL) 185 H (70-110) mg/dL 03/20/24 Range/Units 11:03 WBC (3.8-10.6) k/uL RBC (3.80-5.40) m/uL Hgb (11.4-16.0) gm/dL Neutrophils # (1.3-7.7) k/uL Chloride (98-107) mmol/L Glucose (74-99) mg/dL POC Glucose (mg/dL) 135 H (70-110) mg/dL Microbiology - Last 24 Hours (Table) 03/18/24 12:40 Blood Culture - Preliminary Blood Assessment and Plan Assessment: * Status post [id number], witnessed V-fib cardiac arrest. Patient had prolonged downtime of 22 minutes, but patient has recovered extremely well. Patient has been extubated, fully alert and awake, fairly well-oriented and relatively nonfocal examination. * Memory disturbance, likely due to above. Metabolic encephalopathy, likely due to above, improving. 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 * Carotid Doppler revealed atheromatous plaquing. Some minimal velocity elevation in the left ICA, suggest this could be within 50% range. Antegrade flow in both vertebral arteries. * Preliminary EEG: Negative for seizure or discharges. Background appears normal. No focal slowing. * Continue Eliquis 5 mg twice daily for atrial fibrillation. * Patient on Zosyn for possible aspiration pneumonia. * Other management as per IM and other specialties on board. * PT OT * Hemoglobin A1c 6.4. Patient is drastically improving. Will follow-up patient sporadically. Time with Patient: Less than 30
[2024-03-20 19:53] LABS: Glucose,Whole Blood 114 mg/dL (70-110)
--- NOTE | 2024-03-21 03:11 | EEG ---
ELECTROENCEPHALOGRAM REPORT CLINICAL HISTORY: This is a 68-year-old woman with altered mental status. The video EEG is obtained to evaluate for seizure epileptiform activity. RELEVANT MEDICATIONS: The patient is not on any seizure medication. EEG TYPE: This is a routine 21-channel EEG with video using the 10/20 electrode placement system. DESCRIPTION: Wakefulness is obtained. During awake state, the posterior-dominant rhythm consists of std-rf-[id number] voltage of 9 hertz activity that is well modulated and well sustained. There is no physiological stage 2 sleep architecture. There is no focal slowing. Interictal and ictal is none. ACTIVATION PROCEDURE: Photic stimulation did not evoke a posterior driving response. There is no abnormality during the photic stimulation. Hyperventilation is not performed. CLINICAL INTERPRETATION: This is a normal routine EEG. There is no focal slowing, epileptiform discharge, or seizure on the EEG. A normal routine EEG does not rule out underlying epilepsy. Clinical correlation is recommended. CAN / LISANDRA: [id number] /
[2024-03-21 06:27] LABS: Basophils % (A) 0 %; Eosinophils # (A) 0.3 k/uL (0-0.7); Eosinophils % (A) 3 %; HCT 35.2 % (34.0-46.0); HGB 11.1 gm/dL (11.4-16.0); Hypochromasia Slight; Lymphocytes # (A) 1.3 k/uL (1.0-4.8); Lymphocytes % (A) 13 %; MCH 30.3 pg (25.0-35.0); MCHC 31.6 g/dL (31.0-37.0); MCV 95.8 fL (80.0-100.0); Mean Platelet Volume 8.2; Monocytes # (A) 0.8 k/uL (0-1.0); Monocytes % (A) 7 %; Neutrophils # (A) 7.6 k/uL (1.3-7.7); Neutrophils % (A) 73 %; Platelet Count 358 k/uL (150-450); RBC 3.67 m/uL (3.80-5.40); WBC 10.4 k/uL (3.8-10.6)
[2024-03-21 06:47] LABS: African American GFR (CKD) >90 (>60 ml/min/1.73 sqM); Anion Gap 6 mmol/L; Blood Urea Nitrogen 15 mg/dL (7-17); Calcium 8.9 mg/dL (8.4-10.2); Carbon Dioxide 29 mmol/L (22-30); Chloride 105 mmol/L (98-107); Glucose 106 mg/dL (74-99); Magnesium 1.8 mg/dL (1.6-2.3); Non-African American GFR(CKD) >90 (>60 ml/min/1.73 sqM); Potassium 4.2 mmol/L (3.5-5.1); Sodium 140 mmol/L (137-145)
[2024-03-21 06:52] LABS: Glucose,Whole Blood 99 mg/dL (70-110)
--- NOTE | 2024-03-21 07:12 | P.PN ---
Subjective Progress Note Date: 03/20/24 Principal diagnosis: Reason for follow-up is fever likely aspiration pneumonia Patient is a 68-year-old female with a past medical history significant for hypertension atrial fibrillation brought to the hospital after cardiac arrest at home possibly related to QT prolongation status post resuscitation did have a fever and concern for possible aspiration pneumonia. On today's evaluation that is 03/20/2024,the patient remains to be afebrile, patient is on room air not requiring supplemental oxygen and denies any shortness of breath no chest pain did have occasional dry cough.Patient denies having any nausea or vomiting, no abdominal pain and no diarrhea has been reported. Patient white count is down to 11.5 creatinine 0.59 Objective - Vital Signs Vital signs: Vital Signs Temp 98.8 F 03/20/24 08:00 Pulse 112 H 03/20/24 08:40 Resp 13 03/20/24 08:40 BP 145/93 03/20/24 08:40 Pulse Ox 93 L 03/20/24 08:50 FiO2 35 03/17/24 12:38 Intake & Output 03/19/24 03/20/24 03/20/24 18:59 06:59 18:59 Intake Total 816 700 0 Output Total 700 705 0 Balance 116 -5 0 Weight 113 kg Intake: IV 216 250 0 Sodium Chloride 0.9% 1, 180 220 0 000 ml @ 20 mls/hr IV . Q[facility]H [facility] Rx#:[id number] pressure bag 36 30 Intake, IV Titration 200 200 Amount Magnesium Sulfate-D5w Pmx 100 1 gm In Dextrose/Water 1 100ml.bag @ 100 mls/hr IVPB ONCE ONE Rx#: [id number] Piperacillin-Tazobactam 3 100 200 .375 gm In Sodium Chloride 0.9% 100 ml @ 25 mls/hr IVPB Q8H [facility] Rx#: [id number] Oral 400 250 Output: Urine 700 705 0 Other: Voiding Method Indwelling Catheter Indwelling Catheter # Bowel Movements 1 ABP, PAP, CO, CI - Last Documented Arterial Blood Pressure 154/67 - Exam GENERAL DESCRIPTION: An elderly female lying in bed in no distress RESPIRATORY SYSTEM: Unlabored breathing , decreased breath sounds at bases HEART: S1 S2 regular rate and rhythm , ABDOMEN: Soft , no tenderness EXTREMITIES: No edema feet - Labs CBC & Chem 7: 03/21/24 05:29 03/21/24 05:29 Labs: Abnormal Lab Results - Last 24 Hours (Table) 03/19/24 03/20/24 03/20/24 Range/Units 11:17 05:00 05:00 WBC 11.5 H (3.8-10.6) k/uL RBC 3.58 L (3.80-5.40) m/uL Hgb 10.8 L (11.4-16.0) gm/dL Neutrophils # 8.6 H (1.3-7.7) k/uL Chloride 108 H (98-107) mmol/L Glucose 118 H (74-99) mg/dL POC Glucose (mg/dL) 123 H (70-110) mg/dL 03/20/24 Range/Units 07:27 WBC (3.8-10.6) k/uL RBC (3.80-5.40) m/uL Hgb (11.4-16.0) gm/dL Neutrophils # (1.3-7.7) k/uL Chloride (98-107) mmol/L Glucose (74-99) mg/dL POC Glucose (mg/dL) 185 H (70-110) mg/dL Microbiology - Last 24 Hours (Table) 03/18/24 12:40 Blood Culture - Preliminary Blood Assessment and Plan (1) Aspiration pneumonia Current Visit: Yes Status: Acute Code(s): J69.0 - PNEUMONITIS DUE TO INHALATION OF FOOD AND VOMIT SNOMED Code(s): 017602344 (2) Fever Current Visit: Yes Status: Acute Code(s): R50.9 - FEVER, UNSPECIFIED SNOMED Code(s): 657217700 (3) Leukocytosis Current Visit: Yes Status: Acute Code(s): D72.829 - ELEVATED WHITE BLOOD CELL COUNT, UNSPECIFIED SNOMED Code(s): 242054459 Plan: 1patient presented to the hospital with a cardiac arrest at home has been resuscitated intubated on the scene subsequently has been extubated patient now having a low-grade fever did have elevated white count CT on admission did shows a left lower lobe consolidation/aspiration and likely concerning for aspiration pneumonia. 2blood cultures currently pending sputum not collected patient did have resolution of her fever white count is trending down, down to 11.7, we will continue with Zosyn while inpatient and monitor clinical course closely Dictation was produced using [employer] dictation software. please excuse any grammatical, word or spelling errors. Time with Patient: Less than 30
--- NOTE | 2024-03-21 09:42 | P.PN ---
Subjective Progress Note Date: 03/21/24 HISTORY OF PRESENT ILLNESS: This is a 68-year-old female with a past medical history significant for hy pertension and paroxysmal atrial fibrillation. Patient follows with a president and chief commercial officer at [facility]. We have been asked to see the patient in consultation for cardiac arrest. Patient's family is present. Patient's family states that they heard a thump in the other room and when they went to see what happened they noticed the patient was on the floor. She was unresponsive. 911 was called and CPR was started. The patient was apparently in V-fib when EMS arrived. She did receive defibrillation along with epinephrine. Patient examined at the bedside in the emergency room. Patient remains intubated on mechanical ventilation. She is sedated with propofol. Patient's family denies any known history of CAD. Patient's blood pressure at the time of examination is low with a systolic in the 70s. Her propofol has been paused and she has been started on Levophed. Patient's family gives additional history that the patient was recently on antibiotics for a dental infection. DIAGNOSTICS: - EKG reveals sinus mechanism with a heart rate of 92. - Chest xray findings felt to reflect congestive failure. Infiltrates or other etiology not excluded. - Laboratory data: WBC 18.3. Hemoglobin 13.7. Platelet count 426. Sodium 139. Potassium 5.1. BUN 16. Creatinine 0.86. Magnesium 1.8. AST 94. ALT 44. Troponin 0.079. - Current home cardiac medications include lisinopril 5 mg daily, sotalol 80 mg twice a day, Eliquis 5 mg twice a day 03/17 Patient did have intermittent bradycardia was placed on dopamine. Left heart catheterization was performed with a mild luminal irregularities and elevated LVEDP. She remains on ventilator and opening eyes intermittently however not following obvious commands. Remaines on propofol. 03/18 patient seen and examined. Patient was extubated and currently denies any chest pain or pressure or shortness of breath.she has continued to have intermittent episodes of atrial flutter/ atrial tachycardia with additional sinus bradycardia with heart rates in the 40s. She states prior to this episode she did not really have any episodes of lightheadedness or dizziness and has not had a prior syncope. She denies any family history of sudden cardiac . She does follow with Dr. Joel in [facility]. She can usually not feel her A. fib or atrial flutter. Echo performed with EF 50-55%. EKG from 09/16 shows QTC 496 when in sinus rhythm at heart rate 63 bpm. 03/19 Patient is seen and examined in the intensive care unit. She has been succ essfully extubated. Patient is stating that she is feeling better from yesterday. She does have mental status changes with confusion and followed by neurology. Yesterday, patient was on amiodarone at 1 mg drip and converted to sinus rhythm but when she dropped down to 0.5 mg her heart rate went up to the 120s and 130s and this occurred around 2:30 in the afternoon. Blood pressure was also fluctuating. She was seen by Dr. Teran and amiodarone was discontinued and patient started on beta-luis antonio with recommendations to increase this today. Patient was also started on Aldactone which she has not received yet. Blood pressure 103/52, heart rate is in the 120s, atrial flutter. Patient denies have any chest pain and no shortness of breath. Repeat blood work reveals WBC 12.7, hemoglobin 9.2. Electrolytes are normal, creatinine 0.65. March 20, 2024 Patient is seen and examined at the bedside this a.m. On review of telemetry patient she is in rate controlled atrial fibrillation. Her ECG shows corrected QTc around 400 ms. She denies any chest pain chest pressure shortness of br eath. Electrolytes were reviewed potassium 3.9, magnesium 2.0 March 21, 2024 Patient is seen and examined at bedside this a.m. She is hemodynamically stable. On telemetry she is in sinus rhythm. While she was resting and sleeping, her heart rate was in 50s with intermittent sinoatrial exit blocks. Her QTc appears to be around 420 ms at resting today. Denies any chest pain chest pressure. PHYSICAL EXAM: VITAL SIGNS: Reviewed. GENERAL: Well-developed in no acute distress. HEENT: Head is normocephalic. Pupils are equal, round. Sclerae anicteric. Mucous membranes of the mouth are moist. Neck supple. No JVD or thyromegaly LUNGS: Respirations even and unlabored. Lungs essentially clear to auscultation bilaterally. HEART: Regular rate and rhythm. S1 and S2 heard. ABDOMEN: Soft. Nondistended. Nontender. EXTREMITIES: Normal range of motion. No clubbing or cyanosis. Peripheral pulse s intact. No lower extremity edema NEUROLOGIC: Patient is awake and alert, confused ASSESSMENT: Ventricular fibrillation cardiac arrest, related to prolonged QT and Sotalol Prolonged QTc, measuring 470 on EKG performed in laborer beam house Rule out tachybradycardia syndrome Hypotension, after initiation of IV propofol, requiring vasopressor support History of hypertension Paroxysmal atrial fibrillation, on Eliquis outpatient Mild CAD Bradycardia, likely related to sedation Patient's echocardiogram showed an EF of 55% with no major valvular abnormalities or any structural abnormalities. PLAN: Do not resume sotalol. Discontinue it going forward. Continue metoprolol 50 mg twice daily. Continue lisinopril at 10 mg daily. Continue anticoagulation with Eliquis Due to cardiac arrest, obtain a LifeVest for at least 3 months. Follow-up with primary president and chief commercial officer Dr. Joel From an outpatient evaluation for the need for ICD. Patient does have a tendency of having low heart rates and higher heart rates. I do suspect some tachybradycardia syndrome. She would benefit from getting an outpatient treadmill stress test to evaluate her exercise capacity and any exercise-induced arrhythmias and her heart rate trends. Patient is otherwise cleared to be discharged from cardiovascular standpoint. Recommend outpatient follow-up with Dr. Joel Objective - Vital Signs Vital signs: Vital Signs Temp 98.0 F 03/21/24 08:00 Pulse 131 H 03/21/24 09:00 Resp 33 H 03/21/24 09:00 BP 179/95 03/21/24 09:00 Pulse Ox 97 03/21/24 04:00 FiO2 35 03/17/24 12:38 Intake & Output 03/20/24 03/21/24 03/21/24 18:59 06:59 18:59 Intake Total 265 540 Output Total 0 350 Balance 265 190 Weight 113 kg Intake: IV 25 Piperacillin-Tazobactam 3 25 .375 gm In Sodium Chloride 0.9% 100 ml @ 25 mls/hr IVPB Q8H [facility] Rx#: [id number] Sodium Chloride 0.9% 1, 0 000 ml @ 20 mls/hr IV . Q24H [facility] Rx#:[id number] Oral 240 540 Output: Urine 0 350 Other: # Voids 1 # Bowel Movements 1 ABP, PAP, CO, CI - Last Documented Arterial Blood Pressure 154/67 - Labs CBC & Chem 7: 03/21/24 05:29 03/21/24 05:29 Labs: Abnormal Lab Results - Last 24 Hours (Table) 03/20/24 03/20/24 03/21/24 Range/Units 11:03 19:52 05:29 RBC 3.67 L (3.80-5.40) m/uL Hgb 11.1 L (11.4-16.0) gm/dL Creatinine (0.52-1.04) mg/dL Glucose (74-99) mg/dL POC Glucose (mg/dL) 135 H 114 H (70-110) mg/dL 03/21/24 Range/Units 05:29 RBC (3.80-5.40) m/uL Hgb (11.4-16.0) gm/dL Creatinine 0.51 L (0.52-1.04) mg/dL Glucose 106 H (74-99) mg/dL POC Glucose (mg/dL) (70-110) mg/dL Microbiology - Last 24 Hours (Table) 03/18/24 12:40 Blood Culture - Preliminary Blood
--- NOTE | 2024-03-21 12:18 | P.PN ---
Subjective Progress Note Date: 03/21/24 Principal diagnosis: Cardiopulmonary arrest. This is a 68-year-old female, unknown past medical history except for the fact that the patient does have history of hypertension, paroxysmal atrial fibrillation, normally sees a technician automatic out of [facility]. Patient was brought into the ER by EMS, apparently the family heard a thump in the other room where they went to see what happened they noticed that the patient was on the floor. Patient was unresponsive, CPR was started by family members, 911 was called, upon arrival of EMS, patient was in V-fib, patient received further CPR, defibrillation, and she also received epinephrine by EMS. Brought into the emergency room intubated, patient was seen initially in the ER by myself, and I went ahead and placed a right femoral triple-lumen catheter for venous access/central access. Patient was extremely agitated, restless, unresponsive to any stimuli, quite obtunded, and her blood pressure was initially in the 70s systolic. Patient received Nimbex initially and then she her propofol was titrated, she is presently on propofol. Patient was placed on assist-control mode of mechanical ventilation, ABG now is pending. Patient was seen by cardiology and underwent cardiac catheterization and she was found to have n ormal coronaries. No significant findings according to the cardiology report. Patient was brought back to ICU after cardiac catheterization, and I saw her again in the ICU left radial arterial line was placed. Patient was noted to have intermittent episodes of bradycardia with hypotension, received 1 dose of atropine, 0.5 mg, and she responded well to atropine. With increase in the heart rate to the 80s, and blood pressure was noted to be 160 systolic with increased heart rate hence norepinephrine was being titrated and I recommended stopping norepinephrine at that point. Considered placing the patient on dopamine, but did not require to do so. According to the cardiology note, it was felt that her cardiac arrest may have been secondary to sotalol along with the recent antibiotic taken for dental infection causing prolonged QTc interval leading to ventricular fibrillation arrest. Patient was evaluated today on 03/17/2024, patient is still in ICU, intubated and mechanically ventilated. She is on assist-control rate of 18 tidal volume 450 FiO2 40% and PEEP of 5 ABG showed a pO2 of 133 pCO2 36 pH of 7.46 and straight was cut down to 16 and FiO2 Down to 35%. Patient remains on dopamine at 2.5 mcg/kg/min norepinephrine at 0.01 mcg/kg/min propofol at 30 mcg/kg/min and IV fluid at KVO. Chest x-ray showed minimal bibasilar atelectasis, slight prominence of the pulmonary vasculature, no clear-cut evidence of pneumonia. Hence Zosyn was discontinued, not to mention patient had normal procalcitonin level on admission and today WBC count is 16.1 hemoglobin is 11.7, basic metab olic profile is normal renal profile is normal, procalcitonin is 0.38. No major issues overnight, patient remains on pressors, dopamine was added yesterday mostly because of her intermittent episodes of bradycardia with hypotension, today I plan to transition the patient from propofol to Precedex, and hopefully address weaning if possible. Will depend on her overall mental status during this transition. \ Was seen today on 03/18/2024, patient was extubated yesterday from mechanical ventilation, and she is now on nasal cannula. No major issues overnight, patient is on 2 L nasal cannula, however she is on amiodarone 1 mg/min as ordered by cardiology, blood pressure is elevated patient is requiring lisinopril and hydralazine. Her mental status is not perfect, patient seems to be confused had no idea where she was, she felt that she was in [facility], she also did not know the year and or the month did not know the name of the president. WBC count today is 14.5 hemoglobin is 12 electrolytes are normal renal profile is normal renal profile is normal chest x-ray today is showing evidence of left basilar atelectasis, possible pneumonia involving the left lower lobe with air bronchogram could be seen in the retrocardiac area. Considering the patient is having intermittent fevers, patient needs to go back on antibiotics. The choices are limited, but at this point I believe Zosyn would be a better choice for this patient considering that the patient may have also aspirated. Will ask infectious disease to evaluate specially with the choice of antibiotics being limited procalcitonin initially was normal infectious disease will see on consultation Patient was seen today on 03/19/2024, patient is doing much better today compared to yesterday, her confusion has resolved, patient is doing great overall. She was seen by Dr. sanchezfor her arrhythmia, he is recommending no further treatment with sotalol or any QT prolonging antiarrhythmic drug. He is also recommending stopping IV amiodarone and placing the patient on metoprolol 50 mg twice daily and titrate accordingly. Also recommending oral magnesium as well as Aldactone 25 mg daily along with lisinopril. In addition also recommending Eliquis. Patient remains in the ICU, doing fairly well, blood pressure remains a bit elevated, blood pressure medication is being adjusted. WBC count is 12.7 hemoglobin 11.2 electrolytes are normal renal profile is normal patient is 1.9 Progress note dated March 20, 2024. This is a 68-year-old female who was admitted to the hospital on March 16. The patient had a cardiopulmonary arrest. It was essentially a ventricular fibrillation arrest. She was intubated on March 16, she had a catheterization which was apparently okay. She was extubated the following day on March 17. Currently, she is on room air. She is not receiving any IV fluids. She is s itting in a chair next to the hospital bed. The patient could be transferred out to the 3 S. unit. Current labs include a white count 1.5, hemoglobin 10.8, hematocrit 34.3, and a normal platelet count. Sodium 138, potassium 3.8, chlorides 108, CO2 30, BUN 17, creatinine 0.59. Glucose is 135. Blood and sputum sampling is negative. No chest x-ray today. Progress note dated March 21, 2024. 68-year-old female who was admitted to the hospital March 16. The patient had a cardiopulmonary arrest. It was a ventricular fibrillation arrest, she was intubated on March 16. She had a catheterization, the same day, which apparently was okay. She was extubated on March 17. She remains on room air. She is getting saline at KVO. The patient is hoping to be discharged later today, after she has a LifeVest placed. Current labs are good white count 10.4, hemoglobin 11.1, hematocrit 35.2, and a platelet count of 358,000. Sodium 140, potassium 4.2, chlorides 105, CO2 29, BUN 15, creatinine 0.51. Glucose is 99. Calcium 8.9, and magnesium is 1.8. Objective - Vital Signs Vital signs: Vital Signs Temp 98.0 F 03/21/24 08:00 Pulse 131 H 03/21/24 09:00 Resp 33 H 03/21/24 09:00 BP 179/95 03/21/24 09:00 Pulse Ox 97 03/21/24 04:00 FiO2 35 03/17/24 12:38 Intake & Output 03/20/24 03/21/24 03/21/24 18:59 06:59 18:59 Intake Total 265 540 Output Total 0 350 Balance 265 190 Weight 113 kg Intake: IV 25 Piperacillin-Tazobactam 3 25 .375 gm In Sodium Chloride 0.9% 100 ml @ 25 mls/hr IVPB Q8H DAVID Rx#: [id number] Sodium Chloride 0.9% 1, 0 000 ml @ 20 mls/hr IV . Q24H DAVID Rx#:[id number] Oral 240 540 Output: Urine 0 350 Other: Voiding Method Bedside Commode # Voids 1 # Bowel Movements 1 ABP, PAP, CO, CI - Last Documented Arterial Blood Pressure 154/67 - Exam No acute distress, oriented 3. Currently on room air. HEENT examination is grossly unremarkable. Mucous membranes are moist. No oral lesions. Neck supple. Full range of motion. No adenopathy thyromegaly or neck vein distention. Cardiovascular examination reveals regular rhythm rate. S1-S2 normal. No S3 or S4. No discernible murmur noted. Lungs reveal clear breath sounds. Breath sounds are equal bilaterally. No adventitious lung sounds including wheezes rhonchi or crackles. Abdomen soft bowel sounds are heard. No masses or tenderness. Extremities are intact. No cyanosis clubbing or edema. Skin is without rash or lesion. Neurologic examination is brief but nonfocal. - Labs CBC & Chem 7: 03/21/24 05:29 03/21/24 05:29 Labs: Abnormal Lab Results - Last 24 Hours (Table) 03/20/24 03/21/24 03/21/24 Range/Units 19:52 05:29 05:29 RBC 3.67 L (3.80-5.40) m/uL Hgb 11.1 L (11.4-16.0) gm/dL Creatinine 0.51 L (0.52-1.04) mg/dL Glucose 106 H (74-99) mg/dL POC Glucose (mg/dL) 114 H (70-110) mg/dL Microbiology - Last 24 Hours (Table) 03/18/24 12:40 Blood Culture - Preliminary Blood Assessment and Plan Assessment: Acute [id number] ventricular fibrillation cardiopulmonary arrest. Postcardiac arrest intubation, on March 16, with extubation on March 17. Prolonged QTc interval, which may relate to beta-luis antonio/antibiotic. Hypotension, secondary to cardiac arrest, resolved. History of benign essential hypertension. History of paroxysmal atrial fibrillation. Possible aspiration pneumonia. Acute mental status changes, improved. Plan: Plan dated March 20, 2024. The patient appears to be doing relatively well. She sitting in the chair next to her hospital bed. She is on room air. She is not requiring any IV fluids. Labs, x-rays, medications are all reviewed. The patient can be transferred up to the cardiac floor, 3 S. We will continue to follow make recommendations along the way. Prognosis is guarded. Plan dated March 21, 2024. The patient is seen today in room 252. She is on room air. She is getting saline at KVO. The patient will be fitted for a LifeVest today, and she is hoping to be discharged home later today. Labs, x-rays, and medications are reviewed. The patient's overall prognosis remains guarded. We will continue to follow the patient, should she not be discharged. Her respiratory status is stable she denies any shortness of breath, cough, wheezing, chest tightness, or phlegm production. Time with Patient: Less than 30
--- NOTE | 2024-03-21 14:08 | P.DS ---
Providers Date of admission: 03/16/24 10:56 Expected date of discharge: 03/21/24 Attending physician: Andrea Moody Consults: 03/16/24 11:11 Consult Physician Stat Consulting Provider: Dariusz Pearson Consult Reason/Comments: Cardiac arrest, bradycardia Do you want consulting provider notified?: Yes 03/16/24 11:50 Consult Physician Routine Consulting Provider: Danyelle Rabago Consult Reason/Comments: vent Do you want consulting provider notified?: Already Contacted 03/18/24 09:09 Consult Physician Routine Consulting Provider: Rachael Wheeler Consult Reason/Comments: AMS Do you want consulting provider notified?: Yes 03/18/24 11:45 Consult Physician Routine Consulting Provider: Bozena Boyer Consult Reason/Comments: aspiration pneumonia Do you want consulting provider notified?: Yes Primary care physician: Stated None Hospital Course: [id number] V-fib cardiac arrest Acute encephalopathy, likely metabolic Elevated troponin Leukocytosis Shock, likely cardiogenic versus medication induced Paroxysmal A Fib with RVR Hyperglycemia, likely reactive Intertrigo Gen: In NAD, non-toxic HEENT: normocephalic, atraumatic, hearing acuity is intant, mucous membranes moist CVS: perfusing all extremities well, no pitting edema, Respiratory: symmetric chest expansion, no accessory muscle use, GI: soft, NTTP, ND, : no suprapubic tenderness, no CVA tenderness MSK/Derm: no rashes, cyanosis Neuro: CN II-XII intact, no motor weakness, Psych: cooperative, euthymic mood, judgment and insight is intact Hospital course: Patient is a 68-year-old female with history of hypertension, atrial fibrillation on Eliquis had an outside [id number] cardiac arrest. Patient's temperature was 97.6, pulse 100, respiratory rate 24, blood pressure 183/109 saturating at 97% with mechanical ventilation. Chest x-ray independently interpreted, showed bilateral interstitial opacities. Chest CTA did not show any PE, bilateral rib fractures secondary to CPR, possible aspiration versus pneumonia, pulmonary edema. Head and neck CT did not show any acute fractures, otherwise no acute process. Patient was started on EKG showed sinus arrhythmia, fascicular block, no significant ST or T wave changes. Patient was evaluated by cardiology and pulmonology. She was taken directly to cardiac cath, and then transferred to medical ICU. -Reportedly, left heart cath showed no significant coronary artery disease. Pt was able to be successfully extubated with excellent neurological status. She was discharged home with cardiology follow up and LifeVest. Throughout her stay, periods of bradycardia and tachycardia were noted, her sotalol was permanently discontinued and patient was initiated on metoprolol. She was discharged on this new medication. She will likely need an AICD placed as an outpatient. I spent 36 minutes coordinating this discharge Plan - Discharge Summary New Discharge Prescriptions: New Metoprolol Tartrate [Lopressor] 50 mg PO BID #60 tab Nitroglycerin Sl Tabs [Nitrostat] 0.4 mg SUBLINGUAL Q5M PRN #15 tab PRN Reason: Chest Pain Acetaminophen Tab [Tylenol] 650 mg PO Q6HR PRN tab PRN Reason: Fever And/ Or Pain lisinopriL [Zestril] 10 mg PO DAILY #30 tab Continue Apixaban [Eliquis] 5 mg PO BID Discontinued lisinopriL [Zestril] 5 mg PO DAILY Sotalol [Betapace] 80 mg PO BID Discharge Medication List Apixaban [Eliquis] 5 mg PO BID 03/16/24 [History] Acetaminophen Tab [Tylenol] 650 mg PO Q6HR PRN tab 03/21/24 [Rx] Metoprolol Tartrate [Lopressor] 50 mg PO BID #60 tab 03/21/24 [Rx] Nitroglycerin Sl Tabs [Nitrostat] 0.4 mg SUBLINGUAL Q5M PRN #15 tab 03/21/24 [Rx] lisinopriL [Zestril] 10 mg PO DAILY #30 tab 03/21/24 [Rx] Follow up Appointment(s)/Referral(s): None,Stated [Primary Care Provider] - 1-2 days Discharge Disposition: HOME WITH HOME HEALTH SERVICES
[2024-03-21 17:07] VITALS: BP 145/79; PULSE 112; RESP 20; TEMP 97.9
--- NOTE | 2024-03-22 12:44 | P.PN ---
Subjective Progress Note Date: 03/21/24 Principal diagnosis: Reason for follow-up is fever likely aspiration pneumonia Patient is a 68-year-old female with a past medical history significant for hypertension atrial fibrillation brought to the hospital after cardiac arrest at home possibly related to QT prolongation status post resuscitation did have a fever and concern for possible aspiration pneumonia. On today's evaluation that is 03/21/2024, the patient continues to be afebrile, the patient is on room air and breathing comfortably, the Pt denies having any chest pain or any worsening cough, the patient denies having any abdominal pain no vomiting or any diarrhea has been reported by the nursing staff, patient mention feeling better. Patient white count is 10.4, creatinine 0.51 blood culture has been negative Objective - Vital Signs Vital signs: Vital Signs Temp 97.9 F 03/21/24 16:00 Pulse 112 H 03/21/24 16:00 Resp 20 03/21/24 16:00 BP 145/79 03/21/24 16:00 Pulse Ox 98 03/21/24 16:00 FiO2 35 03/17/24 12:38 Intake & Output 03/21/24 03/21/24 03/22/24 06:59 18:59 06:59 Intake Total 540 480 Output Total 350 Balance 190 480 Intake: Oral 540 480 Output: Urine 350 Other: Voiding Method Bedside Commode # Voids 3 # Bowel Movements 1 ABP, PAP, CO, CI - Last Documented Arterial Blood Pressure 154/67 - Exam GENERAL DESCRIPTION: An elderly female lying in bed in no distress RESPIRATORY SYSTEM: Unlabored breathing , decreased breath sounds at bases HEART: S1 S2 regular rate and rhythm , ABDOMEN: Soft , no tenderness EXTREMITIES: No edema feet - Labs CBC & Chem 7: 03/21/24 05:29 03/21/24 05:29 Labs: Abnormal Lab Results - Last 24 Hours (Table) 03/21/24 03/21/24 Range/Units 05:29 05:29 RBC 3.67 L (3.80-5.40) m/uL Hgb 11.1 L (11.4-16.0) gm/dL Creatinine 0.51 L (0.52-1.04) mg/dL Glucose 106 H (74-99) mg/dL Microbiology - Last 24 Hours (Table) 03/18/24 12:40 Blood Culture - Preliminary Blood Assessment and Plan (1) Aspiration pneumonia Status: Acute Code(s): J69.0 - PNEUMONITIS DUE TO INHALATION OF FOOD AND VOMIT SNOMED Code(s): 292963061 (2) Fever Status: Acute Code(s): R50.9 - FEVER, UNSPECIFIED SNOMED Code(s): 285750637 (3) Leukocytosis Status: Acute Code(s): D72.829 - ELEVATED WHITE BLOOD CELL COUNT, UNSPECIFIED SNOMED Code(s): 956630983 Plan: 1patient presented to the hospital with a cardiac arrest at home has been resuscitated intubated on the scene subsequently has been extubated patient now having a low-grade fever did have elevated white count CT on admission did shows a left lower lobe consolidation/aspiration and likely concerning for aspiration pneumonia. 2blood cultures has been negative patient has shown clinical improvement, will continue Zosyn while inpatient, finishing therapy short course of oral Augmentin on discharge Dictation was produced using [email or web address] dictation software. please excuse any grammatical, word or spelling errors. Time with Patient: Less than 30
== END 2024-03-21 19:02 | disposition home health service (06) | DRG 286 ==
LOC: EC 08:43 → 2SICU 10:56 → OBSVTOIN 10:56 → 2SICU 11:15
PROVIDERS: ADMIT Student in an Organized Health Care Education/Training Program; ATTEND Student in an Organized Health Care Education/Training Program
PROC: B2111ZZ Fluoroscopy of Multiple Coronary Arteries using Low Osmolar Contrast (ICD-10-PCS; 2024-03-16)
PROC: 0BH17EZ Insertion of Endotracheal Airway into Trachea, Via Natural or Artificial Opening (ICD-10-PCS; 2024-03-16)
PROC: 5A1945Z Respiratory Ventilation, 24-96 Consecutive Hours (ICD-10-PCS; 2024-03-16)
PROC: 03HC33Z Insertion of Infusion Device into Left Radial Artery, Percutaneous Approach (ICD-10-PCS; 2024-03-16)
PROC: 06HY33Z Insertion of Infusion Device into Lower Vein, Percutaneous Approach (ICD-10-PCS; 2024-03-16)
PROC: 3E033XZ Introduction of Vasopressor into Peripheral Vein, Percutaneous Approach (ICD-10-PCS; 2024-03-16)
PROC: 4A023N7 Measurement of Cardiac Sampling and Pressure, Left Heart, Percutaneous Approach (ICD-10-PCS; principal; 2024-03-16 14:00)
DX: I49.01 Ventricular fibrillation (principal); G93.41 Metabolic encephalopathy; J69.0 Pneumonitis due to inhalation of food and vomit; R57.0 Cardiogenic shock; J96.90 Respiratory failure, unspecified, unspecified whether with hypoxia or hypercapnia; J81.1 Chronic pulmonary edema; J98.11 Atelectasis; M96.A3 Multiple fractures of ribs associated with chest compression and cardiopulmonary resuscitation; I48.0 Paroxysmal atrial fibrillation; I46.2 Cardiac arrest due to underlying cardiac condition; I45.2 Bifascicular block; I47.21 Torsades de pointes; I25.10 Atherosclerotic heart disease of native coronary artery without angina pectoris; I11.9 Hypertensive heart disease without heart failure; L30.4 Erythema intertrigo; T44.7X5A Adverse effect of beta-adrenoreceptor antagonists, initial encounter; Z79.01 Long term (current) use of anticoagulants; Z79.899 Other long term (current) drug therapy; Z87.891 Personal history of nicotine dependence
CPT/HCPCS: 31500; 36415; 70450; 71045; 71260; 72125; 80048; 80053; 82805; 83036; 83735; 84145; 84484; 85025; 85610; 85730; 87040; 87070; 87205; 93005; 93306; 93458; 93880; 94002; 94003; 95816; 96365; 96375; 99291